=== PATIENT | female | born 1935 | race Caucasian/White ===

== ENCOUNTER 2017-01-06 20:11 | Inpatient (IN) | payer OTHER, BC ==
[2017-01-06 20:22] VITALS: BMI 34.4
[2017-01-06] MEDS ORDERED: ASPIRIN 81 MG CHEWABLE TABLETS PO ONE (20:54)
--- NOTE | 2017-01-06 20:54 | PDOC ---
History of Present Illness - General History Source: Patient Exam Limitations: No Limitations <Navid Lewis - Last Filed: 01/06/17 22:10> <Smiley Camilo - Last Filed: 01/06/17 22:34> - General Chief Complaint: Shortness of Breath Stated Complaint: CHEST PAIN Time Seen by Provider: 01/06/17 20:38 - History of Present Illness Initial Comments: 01/06/17 21:36 The patient is a 81 year old female presenting with her family, with a significant past medical history of aortic stenosis s/p aortic valve replacement , HTN and HLD, who presents to the emergency department with chest pain onset today and dyspnea on exertion for the past month but exacerbated today. She describes her chest pain as ranging from mild to moderate, without radiation or modifying factors. The patient was last in the ED in 2012 for chest pain and was admitted to Telemetry. She denies being on any blood thinners. The patient denies headache and dizziness. Denies fever, chills, nausea, vomit, diarrhea and constipation. Denies dysuria, frequency, urgency and hematuria. Allergies: None Past surgical history: Aortic valve replacement Social history: No alcohol, tobacco or drug use reported Nutrition Instructor - Dr. Choi (Navid Lewis) Past History <Navid Lewis - Last Filed: 01/06/17 22:10> - Past Medical History HTN: Yes Hypercholesterolemia: Yes - Immunization History Immunization Up to Date: No - Psycho/Social/Smoking Cessation Hx Anxiety: No Suicidal Ideation: No Smoking Status: No Smoking History: Never smoked Have you smoked in the past 12 months: No Number of Cigarettes Smoked Daily: 0 Hx Alcohol Use: No Drug/Substance Use Hx: No Substance Use Type: None Hx Substance Use Treatment: No <Smiley Camilo - Last Filed: 01/06/17 22:34> - Past Medical History Allergies/Adverse Reactions: Allergies Allergy/AdvReac Type Severity Reaction Status Date / Time No Known Allergies Allergy Verified 01/06/17 20:20 Home Medications: Ambulatory Orders Aspirin Coated [Ecotrin] 81 mg PO DAILY 12/07/12 Ramipril [Altace] 2.5 mg PO DAILY 12/07/12 Simvastatin [Zocor] 40 mg PO DAILY 12/07/12 Review of Systems - Review of Systems Able to Perform ROS?: Yes <Navid Lewis - Last Filed: 01/06/17 22:10> <Smiley Camilo - Last Filed: 01/06/17 22:34> - Review of Systems Comments:: 01/06/17 21:36 GENERAL/CONSTITUTIONAL: No fever or chills. No weakness. HEAD, EYES, EARS, NOSE AND THROAT: No change in vision. No ear pain or discharge. No sore throat. CARDIOVASCULAR: +Chest pain and shortness of breath on exertion. RESPIRATORY: No cough, wheezing, or hemoptysis. GASTROINTESTINAL: No nausea, vomiting, diarrhea or constipation. GENITOURINARY: No dysuria, frequency, or change in urination. MUSCULOSKELETAL: No joint or muscle swelling or pain. No neck or back pain. SKIN: No rash NEUROLOGIC: No headache, vertigo, loss of consciousness, or change in strength/ sensation. ENDOCRINE: No increased thirst. No abnormal weight change HEMATOLOGIC/LYMPHATIC: No anemia, easy bleeding, or history of blood clots. ALLERGIC/IMMUNOLOGIC: No hives or skin allergy. (Navid Lewis) *Physical Exam <Navid Lewis - Last Filed: 01/06/17 22:10> <Smiley Camilo - Last Filed: 01/06/17 22:34> - Vital Signs Last Vital Signs Temp Pulse Resp BP Pulse Ox 97.5 F L 82 16 134/44 99 01/06/17 20:20 01/06/17 20:20 01/06/17 20:20 01/06/17 20:20 01/06/17 21:18 - Physical Exam Comments: 01/06/17 21:36 GENERAL: Awake, alert, and fully oriented, in no acute distress HEAD: No signs of trauma, normocephalic, atraumatic EYES: PERRLA, EOMI, sclera anicteric, conjunctiva clear ENT: Auricles normal inspection, hearing grossly normal, nares patent, oropharynx clear without exudates. Moist mucosa NECK: Normal ROM, supple, no lymphadenopathy, JVD, or masses LUNGS: +Scant bibasilar rales. No distress, speaks full sentences. HEART: +Murmur. Regular rate and rhythm, normal S1 and S2, no rubs or gallops, peripheral pulses normal and equal bilaterally. ABDOMEN: Soft, nontender, normoactive bowel sounds. No guarding, no rebound. No masses EXTREMITIES: +Pedal edema lower extremity bilaterally. Normal inspection, Normal range of motion. No clubbing or cyanosis. NEUROLOGICAL: Cranial nerves II through XII grossly intact. Normal speech, no focal sensorimotor deficits SKIN: Warm, Dry, normal turgor, no rashes or lesions noted. (Navid Lewis) ED Treatment Course - LABORATORY CBC & Chemistry Diagram: 01/06/17 21:00 01/06/17 21:00 <Navid Lewis - Last Filed: 01/06/17 22:10> - LABORATORY CBC & Chemistry Diagram: 01/06/17 21:00 01/06/17 21:00 <Smiley Camilo - Last Filed: 01/06/17 22:34> - ADDITIONAL ORDERS Additional order review: Laboratory Results 01/06/17 01/06/17 01/06/17 21:00 21:00 21:00 INR D-Dimer 251 H Sodium 141 Potassium 5.1 Chloride 107 Carbon Dioxide 26 Anion Gap 8 BUN 36 H D Creatinine 1.9 H D Creat Clearance w eGFR 25.37 Random Glucose 97 Calcium 8.3 L Magnesium 2.1 Total Bilirubin 0.4 AST 13 L ALT 14 Alkaline Phosphatase 109 Creatine Kinase 75 Troponin I 0.05 B-Natriuretic Peptide 83327.39 H Total Protein 5.8 L Albumin 3.5 Triglycerides 149 D Cholesterol 113 D Total LDL Cholesterol 63 HDL Cholesterol 37 01/06/17 21:00 INR 1.13 D-Dimer Sodium Potassium Chloride Carbon Dioxide Anion Gap BUN Creatinine Creat Clearance w eGFR Random Glucose Calcium Magnesium Total Bilirubin AST ALT Alkaline Phosphatase Creatine Kinase Troponin I B-Natriuretic Peptide Total Protein Albumin Triglycerides Cholesterol Total LDL Cholesterol HDL Cholesterol 01/06/17 21:00 RBC 3.66 MCV 78.0 L MCHC 31.7 L RDW 17.5 H MPV 11.3 H D Neutrophils % 70.4 Lymphocytes % 17.1 D Monocytes % 7.8 Eosinophils % 3.9 Basophils % 0.8 - RADIOLOGY Radiology Studies Ordered: Category Date Time Status CHEST X-RAY PORTABLE* [RAD] Stat Radiology 01/06/17 20:55 Taken - Medications Given in the ED: ED Medications Discontinued Medications Generic Name Dose Route Start Last Admin Trade Name Freq PRN Reason Stop Dose Admin Aspirin 162 mg 01/06/17 20:54 01/06/17 21:16 Asa - PO 01/06/17 20:55 162 mg ONCE ONE Administration Medical Decision Making <Navid Lewis - Last Filed: 01/06/17 22:10> <Smiley Camilo - Last Filed: 01/06/17 22:34> - Medical Decision Making 01/06/17 22:10 Dr. Choi was called regarding the patient at 10pm. Dr. Buck covering Dr. Buck was consulted regarding the patient at 10:03pm [phone] (Navid Lewis) *DC/Admit/Observation/Transfer <Navid Lewis - Last Filed: 01/06/17 22:10> - Discharge Dispostion Admit: Yes <Smiley Camilo - Last Filed: 01/06/17 22:34> Diagnosis at time of Disposition: Chest pain Qualifiers: Chest pain type: precordial pain Qualified Code(s): R07.2 - Precordial pain Dyspnea Qualifiers: Dyspnea type: shortness of breath Qualified Code(s): R06.02 - Shortness of breath Edema leg Qualifiers: Laterality: bilateral Qualified Code(s): R60.0 - Localized edema Congestive heart disease Qualifiers: Congestive heart failure type: unspecified congestive heart failure type Congestive heart failure chronicity: acute Qualified Code(s): I50.9 - Heart failure, unspecified - Referrals Referrals: Ludwig Hammonds MD [Primary Care Provider] - - Attestations Scribe Attestion: 01/06/17 21:37 Documentation prepared by Navid Lewis, acting as medical biller/coder for Smiley Camilo MD (Navid Lewis)
[2017-01-06] MEDS ORDERED: ASPIRIN 81 MG CHEWABLE TABLETS ONE (21:06)
[2017-01-06 21:11] LABS: BASOPHIL 0.8 % (0-2.0); EOSINOPHIL 3.9 % (0-4.5); MCH 24.7 pg (25.7-33.7); MCHC 31.7 g/dl (32.0-36.0); MEAN PLT VOLUME 11.3 fl (7.5-11.1); NEUTROPHILS 70.4 % (42.8-82.8); PLATELET COUNT 202 K/MM3 (134-434); RDW 17.5 % (11.6-15.6); WHITE BLOOD COUNT 8.9 K/mm3 (4.0-10.0)
[2017-01-06 21:21] LABS: INR 1.13 (0.82-1.09); PROTHROMBIN TIME (PATIENT) 12.5 SEC (9.98-11.88)
[2017-01-06 21:40] LABS: ALBUMIN 3.5 g/dl (3.4-5.0); BILIRUBIN,TOTAL 0.4 mg/dL (0.2-1.0); CALCIUM 8.3 mg/dL (8.5-10.1); CREATININE 1.9 mg/dL (0.55-1.02); MAGNESIUM 2.1 mg/dL (1.8-2.4); TOT PROT 5.8 g/dl (6.4-8.2)
[2017-01-06 21:42] LABS: TROPONIN I 0.05 ng/ml (0.00-0.05)
--- NOTE | 2017-01-06 22:15 | PN ---
<Yazmin Lin - Last Filed: 01/06/17 23:24> Teaching Attending Note ATTENDING PHYSICIAN STATEMENT I saw and evaluated the patient. I reviewed the resident's note and discussed the case with the resident. I agree with the resident's findings and plan as documented. SUBJECTIVE: Patient is a 81 yo F with a PMHx of aortic stenosis s/p aortic valve replacement , HTN and HLD who presents with left-sided chest pain also with dyspnea on exertion which has been going on for 1 month duration but worsened today. Patient states the pain occurs everyday and worsens when she tries to lay flat. At 7pm this evening she had a sharp, pressure-like left-sided chest pain rated a 10/10 severity while using the bathroom that prompted her family to call EMS. Patient lives with her daughter. Patient reports she is not on any blood thinners. Patient also reports falling 1 month ago and hit her head, right arm and right leg but didnt not see a doctor at the time. Patient also reports bilateral arm tingling for one month. OBJECTIVE: Last Vital Signs Temp Pulse Resp BP Pulse Ox 97.5 F L 82 16 134/44 99 01/06/17 20:20 01/06/17 20:20 01/06/17 20:20 01/06/17 20:20 01/06/17 21:18 GENERAL: Awake, alert, and fully oriented, in no acute distress HEENT: Atraumatic. PERRLA, EOMI. Moist mucosa. No JVD LUNGS: No distress, speaks full sentences, decreased breath sounds at bases bilaterally. HEART: Regular rate and rhythm, normal S1 and S2, systolic ejection murmur, rubs or gallops, peripheral pulses normal and equal bilaterally. ABDOMEN: Soft, nontender, normoactive bowel sounds. No guarding, no rebound. No masses EXTREMITIES: Normal range of motion, trace edema in LE bilaterally. No clubbing or cyanosis. NEUROLOGICAL: Cranial nerves II through XII grossly intact. Normal speech, normal gait, no focal sensorimotor deficits SKIN: Warm, Dry, normal turgor, no rashes or lesions noted. CBCD WBC 8.9 K/mm3 (4.0-10.0) D 01/06/17 21:00 RBC 3.66 M/mm3 (3.60-5.2) 01/06/17 21:00 Hgb 9.1 GM/dL (10.7-15.3) L D 01/06/17 21:00 Hct 28.6 % (32.4-45.2) L 01/06/17 21:00 MCV 78.0 fl (80-96) L 01/06/17 21:00 MCHC 31.7 g/dl (32.0-36.0) L 01/06/17 21:00 RDW 17.5 % (11.6-15.6) H 01/06/17 21:00 Plt Count 202 K/MM3 (134-434) 01/06/17 21:00 MPV 11.3 fl (7.5-11.1) H D 01/06/17 21:00 CMP Sodium 141 mmol/L (136-145) 01/06/17 21:00 Potassium 5.1 mmol/L (3.5-5.1) 01/06/17 21:00 Chloride 107 mmol/L (98-107) 01/06/17 21:00 Carbon Dioxide 26 mmol/L (21-32) 01/06/17 21:00 Anion Gap 8 (8-16) 01/06/17 21:00 BUN 36 mg/dL (7-18) H D 01/06/17 21:00 Creatinine 1.9 mg/dL (0.55-1.02) H D 01/06/17 21:00 Creat Clearance w eGFR 25.37 (>60) 01/06/17 21:00 Calcium 8.3 mg/dL (8.5-10.1) L 01/06/17 21:00 Total Bilirubin 0.4 mg/dL (0.2-1.0) 01/06/17 21:00 AST 13 U/L (15-37) L 01/06/17 21:00 ALT 14 U/L (12-78) 01/06/17 21:00 Alkaline Phosphatase 109 U/L (45-117) 01/06/17 21:00 Total Protein 5.8 g/dl (6.4-8.2) L 01/06/17 21:00 Albumin 3.5 g/dl (3.4-5.0) 01/06/17 21:00 EXAM: X-RAY CHEST: No focal lung consolidation or pleural effusions. Cardiomegaly and/or pericardial effusion. Minimal pulmonary vascular congestion. Median sternotomy. Partial atelectasis lung bases. Prominent right hilar soft tissues. ASSESSMENT AND PLAN: Patient is a 81 yo F with a PMHx of aortic stenosis s/p aortic valve replacement , HTN and HLD who presents with chest pain and CHF exacerbation. 1.) CHF exacerbation -Echo complete -Trend troponins -Daily weights -Na+ restricted diet -Fluid restrict -Lasix IV -Cardiology consult 2.) Chest pain -Heart score: 4 -Trend troponins/ ECG -Continue aspirin 3.) HTN -Continue with home meds -Hold susanne inhibitor 4.) HLD -Check lipid panel -Continue home meds 5.) Microcytic anemia -Stool cult pending -Iron studies in AM 6.) Aortic valve replacement - Echo in AM 7.) Acute renal failure -Check urine electrolytes -Avoid nephrotoxins 8.) Diabetes -Hold metformin -Finger sticks Q 4 -Rapid acting insulin -Diabetic diet 9.) Bilateral arm tingling -Consider CT Spine without contrast DVT ppx -SCDs Documentation prepared by Yazmin Lin, acting as medical supply technician for Elisa Scott D.O. <Elisa Scott - Last Filed: 01/07/17 04:46> Teaching Attending Note Name of Resident: Emilia Lee Addendum: NSTEMI - Heparin gtt. - Cards consult - Plavix - 02 NC - Continue to trend trop
[2017-01-06] MEDS ORDERED: FUROSEMIDE 40 MG/4 ML INJECTABLE VIAL IVPUSH ONE (22:31)
[2017-01-06] MEDS ORDERED: FUROSEMIDE 40 MG/4 ML INJECTABLE VIAL ONE (23:12)
[2017-01-06] MEDS ORDERED: TAMSULOSIN HCL 0.4 MG CAP.ER.24H (FP) PO ONE (23:23)
--- NOTE | 2017-01-06 23:30 | HP ---
CHIEF COMPLAINT: Chest pain and shortness of breath PCP: Dr. Kristy Peña HISTORY OF PRESENT ILLNESS: Patient is 81-year-old female presented with the chief complaints chest pain and shortness of breath. A/c to the patient, she developed shortness of breath a month ago which has been getting worse, SOB at rest and exertion, can barely walk few steps without short of breath. Also states she has been having chest pain for the past 2 months almost every day especially at night, has to wait for 20mins until the chest pain goes away and can lie down. Uses one pillow and sleeps at an angle of 45 degrees. Today, at around 7pm, she developed severe left sided chest pain, non radiating, 10/10 in intensity, pressure type, aggravated on movement and taking deep inspiration, relieved on sitting, associated with palpitations but no nausea or vomiting. Patient mentions that one month ago, she had a mechanical fall, hit the back of her head, right upper and lower limb, however, she didn't visit the doctor. since the fall, there is no complaint of headache, dizziness or loc. Patient also reports that she had been having tingling sensation in both of her hand since 2 months. Hasn't seen a doctor for that matter. Denies fever, chills, rigors, sweating or abdominal pain. Bowel/Bladder habit normal. Increased frequency of urination after she started taking lasix but no other urinary symptoms. Sleep/Appetite normal. ER course was notable for: (1) Afebrile, D-dimer 251; BNP- 24194.39; creatinine 1.9, GFR 25.37 (2) CXR (3) Aspirin 162mg stat, Lasix 40mg IV Recent Travel: None PAST MEDICAL HISTORY: Hypertension, Hyperlipidemia, Aortic stenosis s/p Aortic valve placement in 2013 PAST SURGICAL HISTORY: As mentioned above Social History: Smoking: Denies Alcohol: Denies Drugs: Denies Family History: Allergies No Known Allergies Allergy (Verified 01/06/17 20:20) HOME MEDICATIONS: REVIEW OF SYSTEMS CONSTITUTIONAL: Absent: fever, chills, diaphoresis, generalized weakness, malaise, loss of appetite, weight change HEENT: Absent: rhinorrhea, nasal congestion, throat pain, throat swelling, difficulty swallowing, mouth swelling, ear pain, eye pain, visual changes CARDIOVASCULAR: Present: chest pain, palpitations Absent:irregular heart rate, lightheadedness, peripheral edema RESPIRATORY: Present: shortness of breath, dyspnea with exertion, orthopnea Absent: cough, wheezing, stridor, hemoptysis GASTROINTESTINAL: Absent: abdominal pain, abdominal distension, nausea, vomiting, diarrhea, constipation, melena, hematochezia GENITOURINARY: Absent: dysuria, frequency, urgency, hesitancy, hematuria, flank pain, genital pain MUSCULOSKELETAL: Absent: myalgia, arthralgia, joint swelling, back pain, neck pain SKIN: Absent: rash, itching, pallor HEMATOLOGIC/IMMUNOLOGIC: Absent: easy bleeding, easy bruising, lymphadenopathy, frequent infections ENDOCRINE: Absent: unexplained weight gain, unexplained weight loss, heat intolerance, cold intolerance NEUROLOGIC: Absent: headache, focal weakness or paresthesias, dizziness, unsteady gait, seizure, mental status changes, bladder or bowel incontinence PSYCHIATRIC: Absent: anxiety, depression, suicidal or homicidal ideation, hallucinations. PHYSICAL EXAMINATION Vital Signs - 24 hr 01/06/17 01/06/17 20:20 21:18 Temperature 97.5 F L Pulse Rate 82 Respiratory 16 Rate Blood Pressure 134/44 O2 Sat by Pulse 95 99 Oximetry (%) GENERAL: Elderly female, Awake, alert, and fully oriented, in no mild respiratory distress. HEAD: Normal with no signs of trauma. EYES:EOM intact, no pallor or icterus. EARS, NOSE, THROAT: Ears normal. Moist mucous membranes. NECK: Supple. LUNGS: Decreased Breath sounds bilaterally, bibasilar crackles. No wheezes. No accessory muscle use. HEART: Regular rate and rhythm, normal S1 and S2 , systolic murmur+ , rub or gallop. ABDOMEN: Soft, nontender, not distended, normoactive bowel sounds, no guarding, no rebound, no masses. No hepatomegaly or splenomegaly. MUSCULOSKELETAL: Normal range of motion at all joints. No bony deformities or tenderness. No CVA tenderness. UPPER EXTREMITIES: 2+ pulses, warm, well-perfused. No cyanosis. No clubbing. No peripheral edema. LOWER EXTREMITIES: 2+ pulses, warm, well-perfused. No calf tenderness. Trace peripheral edema. NEUROLOGICAL: Cranial nerves II-XII intact. Normal speech. Normal gait. PSYCHIATRIC: Cooperative. Good eye contact. Appropriate mood and affect. SKIN: Warm, dry, normal turgor, no rashes or lesions noted, normal capillary refill. Laboratory Results - last 24 hr 01/06/17 01/06/17 01/06/17 21:00 21:00 21:00 WBC 8.9 D RBC 3.66 Hgb 9.1 L D Hct 28.6 L MCV 78.0 L MCHC 31.7 L RDW 17.5 H Plt Count 202 MPV 11.3 H D Neutrophils % 70.4 Lymphocytes % 17.1 D Monocytes % 7.8 Eosinophils % 3.9 Basophils % 0.8 INR 1.13 D-Dimer Sodium 141 Potassium 5.1 Chloride 107 Carbon Dioxide 26 Anion Gap 8 BUN 36 H D Creatinine 1.9 H D Creat Clearance w eGFR 25.37 Random Glucose 97 Calcium 8.3 L Magnesium 2.1 Total Bilirubin 0.4 AST 13 L ALT 14 Alkaline Phosphatase 109 Creatine Kinase 75 Troponin I 0.05 B-Natriuretic Peptide Total Protein 5.8 L Albumin 3.5 Triglycerides Cholesterol Total LDL Cholesterol HDL Cholesterol Stool Occult Blood 01/06/17 01/06/17 01/06/17 21:00 21:00 22:35 WBC RBC Hgb Hct MCV MCHC RDW Plt Count MPV Neutrophils % Lymphocytes % Monocytes % Eosinophils % Basophils % INR D-Dimer 251 H Sodium Potassium Chloride Carbon Dioxide Anion Gap BUN Creatinine Creat Clearance w eGFR Random Glucose Calcium Magnesium Total Bilirubin AST ALT Alkaline Phosphatase Creatine Kinase Troponin I B-Natriuretic Peptide 76534.39 H Total Protein Albumin Triglycerides 149 D Cholesterol 113 D Total LDL Cholesterol 63 HDL Cholesterol 37 Stool Occult Blood Negative ASSESSMENT/PLAN: Patient is 81-year-old female with significant past medical history of Hypertension, Hyperlipidemia, Aortic stenosis s/p Aortic valve placement in 2012 presented with the chief complaints chest pain and shortness of breath. # CHF exacerbation Patient presented with worsening shortness of breath Afebrile, D-dimer 251; BNP- 81023.39; In the ED, patient received Lasix 40mg IV Admitted in Tele Echo ordered Cardiology consult placed Daily weight Strict Input/output Fluid restriction 1Litres # Chest pain with rise in Troponin- Likely NSTEMI Patient has been complaining of left sided chest pain since 2 months that got worse today Troponin -0.05----> 0.65------> ordered for 9:30am EKG: Right bundle branch block with T-wave inversions Continuous cardiac monitoring. Patient received Aspirin 162mg stat and will continue with 81 mg of Aspirin Clopidogrel 300 mg stat given Nasal oxygen # Aortic stenosis s/p aortic valve placement in 2013 Most likely its non mechanical as patient is not in any blood thinners. # Microcytic anemia Ordered Iron panel for tomorrow Watch for sudden drop in H/H Stool occult blood pending # Acute Kidney Injury with questionable CKD Could be cardiorenal Creatinine 1.9 (baseline 0.9 in 2013), GFR 25.37 Avoid Nephrotoxic drugs Nephrology consult placed # Hypertension Ramipril on hold due to TOBIAS Would consider adding Beta mariel. # Hyperlipidemia Increased Atorvastatin from 20mg to 80mg # No h/o Diabetes However, due to other co-morbidities ordered HbA1c # FEN Not on IV fluids Electrolytes to be repeated tomorrow Sodium controlled diet # Prophylaxis For DVT- On scds For GI- Not indicated # Code Status: Full Code # Dispo: Admitted in Tele. Duration of stay unknown Illness, Investigation and plan of care explained to the patient. She verbalized understanding. Case seen and discussed with Dr. Scott. Visit type - Emergency Visit Emergency Visit: Yes ED Registration Date: 01/06/17 Care time: The patient presented to the Emergency Department on the above date and was hospitalized for further evaluation of their emergent condition. - New Patient This patient is new to me today: Yes Date on this admission: 01/06/17 - Critical Care Critical Care patient: No
[2017-01-06] MEDS ORDERED: ATORVASTATIN CA 20 MG TABLET (FP) PO SCH (23:45)
[2017-01-07] MEDS ORDERED: ATORVASTATIN CA 40 MG TABLET (FP) ONE (00:03)
[2017-01-07 00:28] LABS: URINE APPEARANCE CLEAR; URINE BILIRUBIN NEGATIVE (NEGATIVE); URINE BLOOD NEGATIVE (NEGATIVE); URINE COLOR STRAW; URINE GLUCOSE (UA) NEGATIVE (NEGATIVE); URINE KETONE NEGATIVE (NEGATIVE); URINE LEUK ESTERASE NEGATIVE (NEGATIVE); URINE NITRITE NEGATIVE (NEGATIVE); URINE PROTEIN NEGATIVE (NEGATIVE); URINE UROBILINOGEN NEGATIVE E.U./dl (0.2-1.0)
[2017-01-07 04:31] LABS: TROPONIN I 0.64 ng/ml (0.00-0.05)
[2017-01-07] MEDS ORDERED: HEPARIN NA (PORCINE) 5,000 UNITS/ML 1ML VIAL IVPUSH PRN ×2 (04:43)
[2017-01-07] MEDS ORDERED: SODIUM CHLORIDE 1,000 ML IV SCH (04:45)
[2017-01-07] MEDS ORDERED: CLOPIDOGREL BISULFATE 300 MG TABLET PO ONE (04:46)
[2017-01-07] MEDS ORDERED: CLOPIDOGREL BISULFATE 300 MG TABLET ONE (04:57)
[2017-01-07] MEDS ORDERED: HEPARIN NA (PORCINE) 5,000 UNITS/ML 1ML VIAL ONE (04:58)
[2017-01-07] MEDS ORDERED: HEPARIN INFUSION - 500 ML IVPB ONE (04:58)
[2017-01-07] MEDS ORDERED: ATORVASTATIN CA 20 MG TABLET (FP) PO SCH (05:08)
[2017-01-07] MEDS: HEPARIN - 25,000 UNIT in SODIUM CHLORIDE 495 ML IV SCH (05:11)
[2017-01-07] MEDS ORDERED: INSULIN SLIDING SCALE (NOVOLOG) 1 VIAL SQ SCH (07:00)
[2017-01-07 07:09] LABS: BASOPHIL 0.8 % (0-2.0); EOSINOPHIL 4.7 % (0-4.5); MCH 24.9 pg (25.7-33.7); MCHC 32.2 g/dl (32.0-36.0); MEAN CELL VOLUME 77.2 fl (80-96); MEAN PLT VOLUME 11.6 fl (7.5-11.1); NEUTROPHILS 62.1 % (42.8-82.8); PLATELET COUNT 189 K/MM3 (134-434); RDW 16.7 % (11.6-15.6); WHITE BLOOD COUNT 7.8 K/mm3 (4.0-10.0)
[2017-01-07] MEDS ORDERED: TAMSULOSIN HCL 0.4 MG CAP.ER.24H (FP) PO SCH (08:30)
--- NOTE | 2017-01-07 09:25 | CON.CARD ---
Consult Consult Specialty:: cardio Referred by:: hospitalist Reason for Consultation:: sob/cp, chf, NSTEMI - History of Present Illness Chief Complaint: sob/cp History of Present Illness: 81-year-old female here with cp and sob. has had worsening sob for several months--chronic. notices it when walking, not while in bed. saw hallie in our office 09/05 with c/o chronic GARCIA that improved when she resumed PO lasix at that time but had not resolved. wt was 187 lbs then *PT NEVER PICKED UP LASIX AND HAS NOT TAKEN ANY SINCE THEN SHE SAYS doesn't know wt, doesn't monitor at home has not seen casper since 09/05 sob worse the past several weeks; mild wax/waning feet swelling stable at her baseline having episodes of CP frequently nestor at night when walking back from bathroom to bed; again yesterday--signif worse when breathing in. yest episode more severe than ever before but she thinks qualitatively similar. resolved on its own after 45min or so (shortly after arrived in ER) no radiation to back, not positional Patient mentions that one month ago, she had a mechanical fall, hit the back of her head, right upper and lower limb, however, she didn't visit the doctor. since the fall, there is no complaint of headache, dizziness or loc. PMH: bioAVR chronic diast chf HTN HPL - Alcohol/Substance Use Hx Alcohol Use: No - Smoking History Smoking history: Never smoked Have you smoked in the past 12 months: No Aproximately how many cigarettes per day: 0 Home Medications - Allergies Allergies/Adverse Reactions: Allergies Allergy/AdvReac Type Severity Reaction Status Date / Time No Known Allergies Allergy Verified 01/06/17 20:20 - Home Medications Home Medications: Ambulatory Orders Aspirin [Ecotrin] 81 mg PO DAILY 01/06/17 Furosemide [Lasix] 40 mg PO DAILY 01/06/17 Meloxicam [Mobic] 15 mg PO DAILY 01/06/17 Metformin HCl [Metformin HCl ER] 500 mg PO DAILY 01/06/17 Ramipril 5 mg PO DAILY 01/06/17 Simvastatin [Zocor -] 40 mg PO DAILY 01/06/17 Tamsulosin HCl [Flomax] 0.4 mg PO DAILY 01/06/17 Review of Systems - Review of Systems Constitutional: denies: Chills, Fever Eyes: denies: Eye Pain HENT: denies: Nasal Congestion Neck: denies: Stiffness Cardiovascular: denies: Palpitations Respiratory: denies: Orthopnea, PND Gastrointestinal: denies: Diarrhea, Rectal Bleeding Genitourinary: denies: Burning, Hematuria Musculoskeletal: denies: Muscle Pain Integumentary: denies: Rash Neurological: denies: Numbness, Seizure, Syncope Endocrine: denies: Excessive Sweating Hematology/Lymphatic: denies: Excessive Bleeding Vital Signs: Vital Signs Temperature 97.5 F L 01/06/17 20:20 Pulse Rate 62 01/07/17 07:10 Respiratory Rate 19 01/07/17 07:10 Blood Pressure 113/43 01/07/17 07:10 O2 Sat by Pulse Oximetry (%) 99 01/07/17 07:10 Constitutional: Yes: Well Nourished, No Distress Eyes: No: Sclera Icterus HENT: No: Nasal Congestion Neck: No: Decreased ROM Respiratory: Yes: CTA Bilaterally. No: Accessory Muscle Use, Rales, Wheezes Gastrointestinal: Yes: Normal Bowel Sounds. No: Distention, Hepatomegaly, Palpable Mass, Tenderness Cardiovascular: Yes: Regular Rate and Rhythm JVD: Yes Carotid Bruit: No PMI: Non-Displaced Heart Sounds: Yes: S1, S2. No: Gallop Murmur: Yes: Systolic Murmur (3/6 early THOMAS rusb). No: Diastolic Murmur Musculoskeletal: Yes: Other (No kyphosis) Extremities: No: Cold, Cyanosis Edema: No Peripheral Pulses: 2+ Left Carotid, 2+ Right Carotid, 2+ Left Doralis Pedis, 2+ Right Dorsalis Pedis Integumentary: No: Jaundice Neurological: Yes: Alert, Oriented (x3) Psychiatric: No: Agitated - Other Data Labs, Other Data: CBC, BMP 01/07/17 05:52 INR, PTT INR 1.13 (0.82-1.09) 01/06/17 21:00 Troponin, BNP 01/07/17 03:25 Troponin I 0.64 H* Troponin, BNP 01/07/17 03:25 Troponin I 0.64 H* Laboratory Tests 01/06/17 01/06/17 01/07/17 21:00 21:00 03:25 WBC Hgb Plt Count Sodium 141 Potassium 5.1 Carbon Dioxide 26 BUN 36 H D Creatinine 1.9 H D AST 13 L ALT 14 Troponin I 0.05 0.64 H* B-Natriuretic Peptide 84279.39 H Triglycerides 149 D Total LDL Cholesterol 63 HDL Cholesterol 37 01/07/17 05:52 WBC 7.8 Hgb 8.8 L Plt Count 189 Sodium Potassium Carbon Dioxide BUN Creatinine AST ALT Troponin I B-Natriuretic Peptide Triglycerides Total LDL Cholesterol HDL Cholesterol ekg in ER: NSR, RBBB; diffuse ST-T abnormalities unchanged vs 12/27/16 office (no path q's) Imaging - Results Chest X-ray: Report Reviewed, Image Reviewed Assessment/Plan Echo 2012: nl LV/EF; nl RV size; nl LA; severe ; mild MR/TR; RVSP 54; small peric eff Echo 12/2015 (office): nl LVEF; mild-mod LVH; nl RV; nl fxn bioAVR; mild MR MPI 2014: no STs; no ischemia; nl EF LHC 2012: non-obs CAD sob, acute diast CHF -known h/o diast CHF, GARCIA sx's exacerbated pt lasix non-adherence in past; -09/05 empiric trial of incr lasix (40 qd to bid) rx'd by hallie in office--no f/u with him since -CXR here (my review) shows small bilat effusons likely, with diffuse marked interstitial pattern new vs 11/06 (no vasc redistribution appreciated)--suspect acute CHF -BNP 12K not terribly helpful in setting of low GFR/TOBIAS -hx suggestive of gradually decompensated chronic HFpEF sec to med noncompliance , probable JVD on exam -s/p lasix 40 IVP in ER overnight 01/06 -f/u today's rpt creatinine--if stable, will plan to continue lasix -rpt echo atypical CP: -trop 0.05-->0.64-->0.74 -ECG with no ischemic changes (marked ST-Ts at baseline 12/27 in office) -rpt ECG now, trend enzymes -suspect enzymes sec to acute chf and cp m-skel but cannot be certain by history --will plan persantine nuclear stress test while here -f/u rpt echo done for LVEF/RWMAs -pre-AVR cath 2012 with nonobs CAD -*per dr sterling notes, known h/o atypical CP with m-skel features with neg nuclear stress test 2014 for these sx's; -cont home ASA, bb, statin - cont UFH for now pending serial enzymes trend and echo/ecg -given plavix 300mg load in ER--will hold for now given also on ASA and UFH with hgb 8s-9s, down from 2013 with no recent values to probate lawyer baseline -close H/H f/u on ASA/UFH -sx description and BPs trend not suggestive of acute aorta pathology TOBIAS: -creat 0;9 in 2013, ? more recent baseline labs (does pt f/u with any office MDs ?) -monitor lab trend s/p lasix yesterday -? renal c/s--per hospitalist h/o bio AV replacement (for ): HTN: -bp controlled -hold home GLENN given TOBIAS here, cont metopr -observe BP trend HPL: -cont home statin DM2: -on orals at home -per hospitalist anemia: -? acute, no recent baseline -stool guaiac ordered, iron studies -trend daily while on AC (home med regimen: ASA 81, metopr 25 bid, simva 40, lasix 40 qd-bid, ramipril 5 , metformin)
--- NOTE | 2017-01-07 10:28 | MSN ---
[id number]. Pt has no complaints this morning. States that her CP has resolved and her breathing has improved. Denies fevers, chills, palpitations, nausea, vomiting, diaphoresis, abdominal pain, or dysuria. Active Medications Generic Name Dose Route Start Last Admin Trade Name Freq PRN Reason Stop Dose Admin Aspirin 81 mg 01/07/17 10:00 01/07/17 11:06 Ecotrin - PO 81 mg DAILY REGINO Administration Atorvastatin Calcium 80 mg 01/07/17 22:00 Lipitor - PO HS REGINO Heparin Sodium (Porcine) 1,000 unit 01/07/17 04:43 Heparin - IVPUSH PRN PRN Heparin Heparin Sodium (Porcine) 5,000 unit 01/07/17 04:43 01/07/17 05:11 Heparin - IVPUSH 5,000 unit PRN PRN Administration Heparin Heparin Sodium (Porcine) 25, 500 mls @ 20 mls/hr 01/07/17 04:45 01/07/17 12:31 000 unit/ Sodium Chloride IV 950 unit/hr TITR REGINO Titration Protocol 1,000 UNIT/HR Metoprolol Succinate 25 mg 01/07/17 10:00 01/07/17 11:06 Toprol Xl - PO 25 mg BID REGINO Administration OBJECTIVE: Vital Signs Period Temp Pulse Resp BP Sys/Tinsley Pulse Ox Last 24 Hr 97.5 F-98.1 F 61-82 16-20 109-134/38-61 95-99 GENERAL: Well nourished, well developed female, AAOx3 in NAD on NC HEAD: Normocephalic, atraumatic, PERRLA, EOMI NECK: No JVD HEART: RRR with +S1/S2, holosystolic ejection murmur hear @ R>L upper sternal border, no gallops/rubs LUNGS: Bibasilar crackles, negative rhonchi/wheezing ABDOMEN: Obese, soft, nondistended, non tender to palpation, dullness to percussion, normal bowel sounds diffusely EXT: Warm to touch, no signs of venous stasis, +2 DP palpated BL, trace edema BL LE NEURO: Normal speech, CN2-12 intact, motor and sensation grossly intact CBC 01/07/17 05:52 CMP Sodium 142 mmol/L (136-145) 01/07/17 05:52 Potassium 5.0 mmol/L (3.5-5.1) 01/07/17 05:52 Chloride 106 mmol/L (98-107) 01/07/17 05:52 Carbon Dioxide 22 mmol/L (21-32) 01/07/17 05:52 Anion Gap 14 (8-16) 01/07/17 05:52 BUN 35 mg/dL (7-18) H 01/07/17 05:52 Creatinine 1.9 mg/dL (0.55-1.02) H 01/07/17 05:52 Creat Clearance w eGFR 25.37 (>60) 01/07/17 05:52 Random Glucose 101 mg/dL (74-106) 01/07/17 05:52 Hemoglobin A1c % 5.0 % (4.8-6.0) 01/07/17 05:52 Calcium 8.7 mg/dL (8.5-10.1) 01/07/17 05:52 Phosphorus 4.6 mg/dL (2.5-4.9) 01/07/17 05:52 Magnesium 2.4 mg/dL (1.8-2.4) 01/07/17 05:52 Ferritin 13.026 ng/ml (6.9-282.5) 01/07/17 05:52 Total Bilirubin 0.4 mg/dL (0.2-1.0) 01/07/17 05:52 AST 19 U/L (15-37) D 01/07/17 05:52 ALT 12 U/L (12-78) 01/07/17 05:52 Alkaline Phosphatase 107 U/L (45-117) 01/07/17 05:52 Creatine Kinase 137 IU/L (26-192) 01/07/17 09:55 Troponin I 0.74 ng/ml (0.00-0.05) H* 01/07/17 09:55 B-Natriuretic Peptide 58217.39 pg/ml (5-450) H 01/06/17 21:00 Total Protein 5.7 g/dl (6.4-8.2) L 01/07/17 05:52 Albumin 3.6 g/dl (3.4-5.0) 01/07/17 05:52 Triglycerides 74 mg/dL (35-160) D 01/07/17 05:52 Cholesterol 111 mg/dL (50-200) 01/07/17 05:52 Total LDL Cholesterol 66 mg/dL (5-100) 01/07/17 05:52 HDL Cholesterol 38 mg/dL (40-60) L D 01/07/17 05:52 CXR (01/06/17): Cardiomegaly, prominent R hilum, BL pleural effusions, increased interstitial markings when compared to 11/06 CXR CXR (01/07/17): "Resolved vascular congestion". Persistence of BL pleural effusions A/P: Pt is a 81 yo F with a PMHx of HTN, HLD, diastolic CHF, and bioAVR (2012) who presents to the ED with chronic, worsening dyspnea on exertion and an acute increase in L sided CP. Pt was admitted to telemetry for NSTEMI with acute diastolic CHF exacerbation. 1. NSTEMI -Cardiology consult appreciated -Troponin I: 0.05 -> 0.64 -> 0.74 -EKG: pt has baseline ST-Ts changes per outpatient cardio records -Given ASA 162mg, Clopidogrel 300mg, and Atorvastatin 40mg in ER -Heparin gtt started. Monitor aPTT and CBC closely -ECHO pending -? Nuclear stress test during admission -Continuos cardiac monitoring 2. Acute diastolic CHF exacerbation -CXR: BL pleural effusions -BNP of 13,000 ? in setting of decreased GFR and TOBIAS -Given Lasix 40mg IV once in ER -ECHO pending -Continue Lasix pending AM BUN/Cr -Daily weights -Monitor I/Os -Fluid restricted diet 3. TOBIAS -? Baseline of 0.8-0.9 (2012) -Renal consult pending -? 2/2 cardiorenal -Monitor BUN/Cr 4. Microcytic anemia -Stable w/ no signs of active bleeding -Stool guaiac negative -Iron studies pending -Type and screen pending -Monitor CBC 5. HTN -Stable -Hold Ramipril 2/2 TOBIAS -Metoprolol 25mg PO BID 6. HLD -Stable -Lipitor 80mg PO HS daily 7. Bioprosthetic aortic valve -S/P AV replacement in 2012 8. FEN -No IVF -Electrolytes WNL. BMP in AM -Sodium controlled diet. Fluid restricted diet to 1L/day 9. DVT ppx -Heparin gtt 10. Dispo -Admitted to telemetry for further monitoring and management Ludwig Sanchez, MS3 Problem List - Problems (1) Chest pain (2) Congestive heart disease (3) Dyspnea
[2017-01-07 10:39] LABS: INR 1.14 (0.82-1.09); PROTHROMBIN TIME (PATIENT) 12.6 SEC (9.98-11.88)
[2017-01-07 10:50] LABS: TROPONIN I 0.74 ng/ml (0.00-0.05)
[2017-01-07] MEDS: METOPROLOL SUCCINATE 25 MG TAB.SR.24H (FP) PO SCH ×2 (11:06→21:19)
[2017-01-07] MEDS: ASPIRIN COATED 81 MG TABLET.EC PO SCH (11:06)
[2017-01-07 13:11] LABS: ALBUMIN 3.6 g/dl (3.4-5.0); BILIRUBIN,TOTAL 0.4 mg/dL (0.2-1.0); CALCIUM 8.7 mg/dL (8.5-10.1); CREATININE 1.9 mg/dL (0.55-1.02); TOT PROT 5.7 g/dl (6.4-8.2)
[2017-01-07 14:02] LABS: MAGNESIUM 2.4 mg/dL (1.8-2.4); PHOSPHOROUS 4.6 mg/dL (2.5-4.9)
--- NOTE | 2017-01-07 14:50 | PN ---
Teaching Attending Note Name of Resident: Darrell Guillermo ATTENDING PHYSICIAN STATEMENT I saw and evaluated the patient. I reviewed the resident's note and discussed the case with the resident. I agree with the resident's findings and plan as documented. Patient is feeling better now, denies any chest pain no shortness of breath. Vital Signs Temperature 97.5 F L 01/06/17 20:20 Pulse Rate 61 01/07/17 13:37 Respiratory Rate 16 01/07/17 13:37 Blood Pressure 110/45 01/07/17 13:37 O2 Sat by Pulse Oximetry (%) 99 01/07/17 13:37 CBCD WBC 7.8 K/mm3 (4.0-10.0) 01/07/17 05:52 RBC 3.53 M/mm3 (3.60-5.2) L 01/07/17 05:52 Hgb 8.8 GM/dL (10.7-15.3) L 01/07/17 05:52 Hct 27.2 % (32.4-45.2) L 01/07/17 05:52 MCV 77.2 fl (80-96) L 01/07/17 05:52 MCHC 32.2 g/dl (32.0-36.0) 01/07/17 05:52 RDW 16.7 % (11.6-15.6) H 01/07/17 05:52 Plt Count 189 K/MM3 (134-434) 01/07/17 05:52 MPV 11.6 fl (7.5-11.1) H 01/07/17 05:52 CMP Sodium 142 mmol/L (136-145) 01/07/17 05:52 Potassium 5.0 mmol/L (3.5-5.1) 01/07/17 05:52 Chloride 106 mmol/L (98-107) 01/07/17 05:52 Carbon Dioxide 22 mmol/L (21-32) 01/07/17 05:52 Anion Gap 14 (8-16) 01/07/17 05:52 BUN 35 mg/dL (7-18) H 01/07/17 05:52 Creatinine 1.9 mg/dL (0.55-1.02) H 01/07/17 05:52 Creat Clearance w eGFR 25.37 (>60) 01/07/17 05:52 Random Glucose 101 mg/dL (74-106) 01/07/17 05:52 Calcium 8.7 mg/dL (8.5-10.1) 01/07/17 05:52 Total Bilirubin 0.4 mg/dL (0.2-1.0) 01/07/17 05:52 AST 19 U/L (15-37) D 01/07/17 05:52 ALT 12 U/L (12-78) 01/07/17 05:52 Alkaline Phosphatase 107 U/L (45-117) 01/07/17 05:52 Total Protein 5.7 g/dl (6.4-8.2) L 01/07/17 05:52 Albumin 3.6 g/dl (3.4-5.0) 01/07/17 05:52 CARDIAC ENZYMES Creatine Kinase 137 IU/L (26-192) 01/07/17 09:55 Troponin I 0.74 ng/ml (0.00-0.05) H* 01/07/17 09:55 Current Medications Generic Name Dose Route Start Last Admin Trade Name Freq PRN Reason Stop Dose Admin Aspirin 81 mg 01/07/17 10:00 01/07/17 11:06 Ecotrin - PO 81 mg DAILY [facility] Administration Atorvastatin Calcium 80 mg 01/07/17 22:00 Lipitor - PO HS REGINO Heparin Sodium (Porcine) 1,000 unit 01/07/17 04:43 Heparin - IVPUSH PRN PRN Heparin Heparin Sodium (Porcine) 5,000 unit 01/07/17 04:43 01/07/17 05:11 Heparin - IVPUSH 5,000 unit PRN PRN Administration Heparin Heparin Sodium (Porcine) 25, 500 mls @ 20 mls/hr 01/07/17 04:45 01/07/17 12:31 000 unit/ Sodium Chloride IV 950 unit/hr TITR REGINO Titration Protocol 1,000 UNIT/HR Metoprolol Succinate 25 mg 01/07/17 10:00 01/07/17 11:06 Toprol Xl - PO 25 mg BID REGINO Administration Home Medications Medication Instructions Recorded Aspirin [Ecotrin] 81 mg PO DAILY 01/06/17 Furosemide [Lasix] 40 mg PO DAILY 01/06/17 Meloxicam [Mobic] 15 mg PO DAILY 01/06/17 Metformin HCl [Metformin HCl ER] 500 mg PO DAILY 01/06/17 Ramipril 5 mg PO DAILY 01/06/17 Simvastatin [Zocor -] 40 mg PO DAILY 01/06/17 Tamsulosin HCl [Flomax] 0.4 mg PO DAILY 01/06/17 Echo 2012: nl LV/EF; nl RV size; nl LA; severe ; mild MR/TR; RVSP 54; small peric eff Echo 12/2015 (office): nl LVEF; mild-mod LVH; nl RV; nl fxn bioAVR; mild MR ASSESSMENT AND PLAN: Patient is a 81F with a significant cardiac history presented to the ED with chest pain and shortness of breath found to have an NSTEMI #Acute exacerbation of CHF with NSTEMI with elevated troponins: cardiology consult appreciated, ; monitor on telemetry On Heparin gtt per protocol , on aspirin ,statin ,on BB, troponins 0.05-->0.64- ->0.74 persantine stress test per cardiology in am. # Acute on chronic diastolic CHF exacerbation; f/u Echo; Daily I's and O's , daily weights ;Restrict fluid to 1 liter # Acute renal failure possible cardiorenal syndrome ; nephrology consult appreciated #Microcytic anemia: Pending Iron studies ;stool for OB is negative # HTN: hold GLENN-I/ARBs due to renal injury continue Toprol XL 25mg po BID #T2DM hold metformin ; HbA1C is 5.0 at this time; SS with coverage # HLD:continue statin DVT Px:Hep gtt/SCDs
--- NOTE | 2017-01-07 16:33 | PN ---
Physical Exam: SUBJECTIVE: Patient seen and examined at bedside in the ED. No issues overnight states her chest pain has resolved shortness of breath improved able to lay more flat with less dyspnea OBJECTIVE: Vital Signs Period Temp Pulse Resp BP Sys/Tinsley Pulse Ox Last 24 Hr 98.1 F 61-63 16-20 109-114/38-61 99-99 GENERAL: The patient is awake, alert, in no acute distress. EYES: PERRL ENT:moist mucous membranes. NECK: Trachea midline supple. LUNGS: Breath sounds equal, clear to auscultation bilaterally HEART: Regular rate and rhythm, S1, S2 loud systolic murmur heard at both sternal borders but mostly at the right upper sternal border there is JVD ABDOMEN: Soft, nontender, nondistended, normoactive bowel sounds EXTREMITIES: no edema. NEUROLOGICAL: Cranial nerves II through XII grossly intact. Normal speech, gait not observed. Laboratory Results - last 24 hr 01/06/17 01/07/17 01/07/17 22:35 00:00 03:25 WBC RBC Hgb Hct MCV MCHC RDW Plt Count MPV Neutrophils % Lymphocytes % Monocytes % Eosinophils % Basophils % INR PTT (Actin FS) Sodium Potassium Chloride Carbon Dioxide Anion Gap BUN Creatinine Creat Clearance w eGFR Random Glucose Hemoglobin A1c % Calcium Phosphorus Magnesium Ferritin Total Bilirubin AST ALT Alkaline Phosphatase Creatine Kinase 110 Troponin I 0.64 H* Total Protein Albumin Triglycerides Cholesterol Total LDL Cholesterol HDL Cholesterol Urine Color Straw Urine Appearance Clear Urine pH 5.0 Ur Specific [place] 1.006 Urine Protein Negative Urine Glucose (UA) Negative Urine Ketones Negative Urine Blood Negative Urine Nitrite Negative Urine Bilirubin Negative Urine Urobilinogen Negative Ur Leukocyte Esterase Negative Stool Occult Blood Negative 01/07/17 01/07/17 01/07/17 05:52 05:52 05:52 WBC 7.8 RBC 3.53 L Hgb 8.8 L Hct 27.2 L MCV 77.2 L MCHC 32.2 RDW 16.7 H Plt Count 189 MPV 11.6 H Neutrophils % 62.1 Lymphocytes % 23.2 D Monocytes % 9.2 Eosinophils % 4.7 H Basophils % 0.8 INR PTT (Actin FS) Sodium 142 Potassium 5.0 Chloride 106 Carbon Dioxide 22 Anion Gap 14 BUN 35 H Creatinine 1.9 H Creat Clearance w eGFR 25.37 Random Glucose 101 Hemoglobin A1c % 5.0 Calcium 8.7 Phosphorus 4.6 Magnesium 2.4 Ferritin Total Bilirubin 0.4 AST 19 D ALT 12 Alkaline Phosphatase 107 Creatine Kinase Troponin I Total Protein 5.7 L Albumin 3.6 Triglycerides 74 D Cholesterol 111 Total LDL Cholesterol 66 HDL Cholesterol 38 L D Urine Color Urine Appearance Urine pH Ur Specific [place] Urine Protein Urine Glucose (UA) Urine Ketones Urine Blood Urine Nitrite Urine Bilirubin Urine Urobilinogen Ur Leukocyte Esterase Stool Occult Blood 01/07/17 01/07/17 01/07/17 05:52 09:55 09:55 WBC RBC Hgb Hct MCV MCHC RDW Plt Count MPV Neutrophils % Lymphocytes % Monocytes % Eosinophils % Basophils % INR PTT (Actin FS) 80.5 H Sodium Potassium Chloride Carbon Dioxide Anion Gap BUN Creatinine Creat Clearance w eGFR Random Glucose Hemoglobin A1c % Calcium Phosphorus Magnesium Ferritin 13.026 Total Bilirubin AST ALT Alkaline Phosphatase Creatine Kinase 137 Troponin I 0.74 H* Total Protein Albumin Triglycerides Cholesterol Total LDL Cholesterol HDL Cholesterol Urine Color Urine Appearance Urine pH Ur Specific [place] Urine Protein Urine Glucose (UA) Urine Ketones Urine Blood Urine Nitrite Urine Bilirubin Urine Urobilinogen Ur Leukocyte Esterase Stool Occult Blood 01/07/17 01/07/17 09:55 10:00 WBC RBC Hgb Hct MCV MCHC RDW Plt Count MPV Neutrophils % Lymphocytes % Monocytes % Eosinophils % Basophils % INR 1.14 PTT (Actin FS) Sodium Potassium Chloride Carbon Dioxide Anion Gap BUN Creatinine Creat Clearance w eGFR Random Glucose Hemoglobin A1c % Calcium Phosphorus Magnesium Ferritin Total Bilirubin AST ALT Alkaline Phosphatase Creatine Kinase Cancelled Troponin I Cancelled Total Protein Albumin Triglycerides Cholesterol Total LDL Cholesterol HDL Cholesterol Urine Color Urine Appearance Urine pH Ur Specific [place] Urine Protein Urine Glucose (UA) Urine Ketones Urine Blood Urine Nitrite Urine Bilirubin Urine Urobilinogen Ur Leukocyte Esterase Stool Occult Blood Active Medications Generic Name Dose Route Start Last Admin Trade Name Freq PRN Reason Stop Dose Admin Aspirin 81 mg 01/07/17 10:00 01/07/17 11:06 Ecotrin - PO 81 mg DAILY REGINO Administration Atorvastatin Calcium 80 mg 01/07/17 22:00 Lipitor - PO HS REGINO Heparin Sodium (Porcine) 1,000 unit 01/07/17 04:43 Heparin - IVPUSH PRN PRN Heparin Heparin Sodium (Porcine) 5,000 unit 01/07/17 04:43 01/07/17 05:11 Heparin - IVPUSH 5,000 unit PRN PRN Administration Heparin Heparin Sodium (Porcine) 25, 500 mls @ 20 mls/hr 01/07/17 04:45 01/07/17 12:31 000 unit/ Sodium Chloride IV 950 unit/hr TITR REGINO Titration Protocol 1,000 UNIT/HR Metoprolol Succinate 25 mg 01/07/17 10:00 01/07/17 11:06 Toprol Xl - PO 25 mg BID REGINO Administration ASSESSMENT/PLAN: 81F with a significant cardiac history presented to the ED with chest pain and shortness of breath found to have an NSTEMI atypical chest pain/NSTEMI:cardiology consult appreciated. possible troponinemia in the setting of circulatory overload from CHF as patient never picked up her diuretics monitor on telemetry continue hep gtt per protocol continue aspirin continue statin continue beta mariel (metoprolol) continue to trend troponin to document peak trop 0.05-->0.64-->0.74 persantine stress test per cardiology following is from cardiology office per cardiologists note: Echo 2012: nl LV/EF; nl RV size; nl LA; severe ; mild MR/TR; RVSP 54; small peric eff Echo 12/2015 (office): nl LVEF; mild-mod LVH; nl RV; nl fxn bioAVR; mild MR MPI 2014: no STs; no ischemia; nl EF LHC 2012: non-obs CAD HbA1C is 5.0 which is normal Acute on chronic diastolic CHF exacerbation/heart failure with preserved ejection fraction most likely the cause of her dyspnea on exertion, SOB, and orthopnea patient did not cone picker lasix from the pharmacy f/u Echo daily weights strict I/Os 1 liter fluid restriction TOBIAS:likely pre-renal from poor perfusion to the kidney from CHF. possible cardiorenal syndrome avoid nephrotoxic drugs renally dose all medications nephrology consulted for further assistance should resolve with treatment of CHF exacerbation Microcytic anemia: Iron studies sent results pending results to determine further management stool for occult blood negative HTN: hold GLENN-I/ARBs due to renal injury continue Toprol XL 25mg po BID DM type 2: patient supposedly on metformin at home HbA1C is 5.0 at this time will do finger sticks for blood glucose monitoring TIDAC without sliding scale to trend her blood glucose for now HLD: continue statin FEN: No IVF patient is fluid overloaded no eledctrolyte issues at this time will continue to trend them low fat low sodium diet PPx: Hep gtt/SCDs No GI PPx indiacted as no major or minor criteria met Patient is ambulating no PT consult at this time will evaluate the need for physical therapy on a daily basis Visit type - Emergency Visit Emergency Visit: Yes ED Registration Date: 01/06/17 Care time: The patient presented to the Emergency Department on the above date and was hospitalized for further evaluation of their emergent condition. - New Patient This patient is new to me today: Yes Date on this admission: 01/07/17 - Critical Care Critical Care patient: No
--- NOTE | 2017-01-07 17:24 | CONSULT ---
Consult Consult Specialty:: Nephrology Reason for Consultation:: TOBIAS - History of Present Illness Chief Complaint: chest pain History of Present Illness: Pt is an 81 year old female with pmhx of aortic valve replacement, HTN and hyperlipidemia who presents to the ER with chest pain. She also complains of shortness of breath on exertion. She was found to be in heart failure and was admitted. She was also found to have elevated troponin. I was called to evalaute her for TOBIAS as her creatinine is elevated. She denies history of CKD. She denies hematuria or dysuria. She denies nsaid use. - History Source History Provided By: Patient, Medical Record - Past Medical History Cardio/Vascular: Yes: Aortic Stenosis, CHF, HTN, Hyperlipdemia ...: No Endocrine: Yes: Diabetes Mellitus - Alcohol/Substance Use Hx Alcohol Use: No - Smoking History Smoking history: Never smoked Have you smoked in the past 12 months: No Aproximately how many cigarettes per day: 0 Home Medications - Allergies Allergies/Adverse Reactions: Allergies Allergy/AdvReac Type Severity Reaction Status Date / Time No Known Allergies Allergy Verified 01/06/17 20:20 - Home Medications Home Medications: Ambulatory Orders Aspirin [Ecotrin] 81 mg PO DAILY 01/06/17 Furosemide [Lasix] 40 mg PO DAILY 01/06/17 Meloxicam [Mobic] 15 mg PO DAILY 01/06/17 Metformin HCl [Metformin HCl ER] 500 mg PO DAILY 01/06/17 Ramipril 5 mg PO DAILY 01/06/17 Simvastatin [Zocor -] 40 mg PO DAILY 01/06/17 Tamsulosin HCl [Flomax] 0.4 mg PO DAILY 01/06/17 Family Disease History - Family Disease History Family History: Denies Review of Systems - Review of Systems Constitutional: reports: Malaise Eyes: reports: No Symptoms HENT: reports: No Symptoms Neck: reports: No Symptoms Cardiovascular: reports: Chest Pain, Edema, Shortness of Breath Respiratory: reports: SOB, SOB on Exertion Gastrointestinal: reports: No Symptoms Genitourinary: reports: No Symptoms Musculoskeletal: reports: No Symptoms Integumentary: reports: No Symptoms Neurological: reports: No Symptoms Endocrine: reports: No Symptoms Hematology/Lymphatic: reports: No Symptoms Psychiatric: reports: No Symptoms Physical Exam Vital Signs: Vital Signs Temperature 98.1 F 01/07/17 15:09 Pulse Rate 61 01/07/17 15:09 Respiratory Rate 20 01/07/17 15:09 Blood Pressure 114/61 01/07/17 15:09 O2 Sat by Pulse Oximetry (%) 99 01/07/17 15:09 Constitutional: Yes: Calm Eyes: Yes: Conjunctiva Clear HENT: Yes: Atraumatic Cardiovascular: Yes: S1, S2 Respiratory: Yes: On Nasal O2 Gastrointestinal: Yes: Soft, Abdomen, Obese Musculoskeletal: Yes: WNL Edema: Yes Edema: LLE: 1+, RLE: 1+ Neurological: Yes: Oriented Psychiatric: Yes: Oriented Labs: CBC, BMP 01/07/17 05:52 01/07/17 05:52 Laboratory Tests 12/07/12 12/08/12 01/06/17 21:16 06:00 21:00 WBC 8.9 D Hgb 9.1 L D Plt Count 202 Sodium Potassium Chloride Carbon Dioxide Anion Gap BUN Creatinine 0.8 0.9 Troponin I B-Natriuretic Peptide 01/06/17 01/06/17 01/07/17 21:00 21:00 03:25 WBC Hgb Plt Count Sodium Potassium Chloride Carbon Dioxide Anion Gap BUN Creatinine 1.9 H D Troponin I 0.64 H* B-Natriuretic Peptide 03999.39 H 01/07/17 01/07/17 05:52 05:52 WBC 7.8 Hgb 8.8 L Plt Count 189 Sodium 142 Potassium 5.0 Chloride 106 Carbon Dioxide 22 Anion Gap 14 BUN 35 H Creatinine 1.9 H Troponin I B-Natriuretic Peptide Imaging - Results Chest X-ray: Report Reviewed Problem List - Problems (1) Chest pain Code(s): R07.9 - CHEST PAIN, UNSPECIFIED Qualifiers: Chest pain type: precordial pain Qualified Code(s): R07.2 - Precordial pain (2) Congestive heart disease Code(s): I50.9 - HEART FAILURE, UNSPECIFIED Qualifiers: Congestive heart failure type: unspecified congestive heart failure type Congestive heart failure chronicity: acute Qualified Code(s): I50.9 - Heart failure, unspecified (3) Dyspnea Code(s): R06.00 - DYSPNEA, UNSPECIFIED Qualifiers: Dyspnea type: shortness of breath Qualified Code(s): R06.02 - Shortness of breath (4) Edema leg Code(s): R60.0 - LOCALIZED EDEMA Qualifiers: Laterality: bilateral Qualified Code(s): R60.0 - Localized edema (5) TOBIAS (acute kidney injury) Code(s): N17.9 - ACUTE KIDNEY FAILURE, UNSPECIFIED Assessment/Plan Current Medications Generic Name Dose Route Start Last Admin Trade Name Freq PRN Reason Stop Dose Admin Aspirin 81 mg 01/07/17 10:00 01/07/17 11:06 Ecotrin - PO 81 mg DAILY REGINO Administration Atorvastatin Calcium 80 mg 01/07/17 22:00 Lipitor - PO HS REGINO Heparin Sodium (Porcine) 1,000 unit 01/07/17 04:43 Heparin - IVPUSH PRN PRN Heparin Heparin Sodium (Porcine) 5,000 unit 01/07/17 04:43 01/07/17 05:11 Heparin - IVPUSH 5,000 unit PRN PRN Administration Heparin Heparin Sodium (Porcine) 25, 500 mls @ 20 mls/hr 01/07/17 04:45 01/07/17 12:31 000 unit/ Sodium Chloride IV 950 unit/hr TITR REGINO Titration Protocol 1,000 UNIT/HR Metoprolol Succinate 25 mg 01/07/17 10:00 01/07/17 11:06 Toprol Xl - PO 25 mg BID REGINO Administration Impression 1. TOBIAS 2. CHF 3. DM 4. HTN 5. fluid overload 6. NSTEMI 7. hyperlipidemia Plan - agree with lasix - will check renal ultrasound - check urine studies and urea - stop metformin for now as creatinine is elevated - repeat labs in am - possible cardiorenal, will follow response to lasix Dr Blanton
[2017-01-07 17:29] LABS: TROPONIN I 0.58 ng/ml (0.00-0.05)
[2017-01-07] MEDS: ATORVASTATIN CA 80 MG TABLET (FP) PO SCH (21:19)
[2017-01-07 21:21] LABS: URINE APPEARANCE CLEAR; URINE BILIRUBIN NEGATIVE (NEGATIVE); URINE BLOOD NEGATIVE (NEGATIVE); URINE COLOR STRAW; URINE GLUCOSE (UA) NEGATIVE (NEGATIVE); URINE KETONE NEGATIVE (NEGATIVE); URINE LEUK ESTERASE NEGATIVE (NEGATIVE); URINE NITRITE NEGATIVE (NEGATIVE); URINE PROTEIN NEGATIVE (NEGATIVE); URINE UROBILINOGEN NEGATIVE E.U./dl (0.2-1.0)
[2017-01-07 21:33] LABS: SODIUM,RANDOM URINE 24 MMOL/L
[2017-01-07 21:34] LABS: CHLORIDE,RANDOM URINE < 10 MMOL/L
[2017-01-08 06:06] LABS: SERUM IRON 41 ug/dL (27-139); TOTAL IRON BINDING CAPACITY 364 ug/dL (250-450); UIBC 323 ug/dL (118-369)
[2017-01-08 07:19] LABS: BILIRUBIN,TOTAL 0.4 mg/dL (0.2-1.0); CALCIUM 7.9 mg/dL (8.5-10.1); CREATININE 1.4 mg/dL (0.55-1.02); MAGNESIUM 2.2 mg/dL (1.8-2.4); PHOSPHOROUS 3.8 mg/dL (2.5-4.9); TOT PROT 5.1 g/dl (6.4-8.2)
[2017-01-08 07:21] LABS: FERRITIN 13.799 ng/ml (6.9-282.5)
[2017-01-08] MEDS ORDERED: HEPARIN INFUSION - 500 ML IVPB ONE (07:23)
[2017-01-08] MEDS: HEPARIN - 25,000 UNIT in SODIUM CHLORIDE 495 ML IV SCH (08:18)
--- NOTE | 2017-01-08 09:53 | PN ---
Progress Note (short form) - Note Progress Note: Chief Complaint: sob/cp S: + sob ambulating to bathroom, improving. tenderness to palpation of sternum but no cp. no palps, dizziness. Cardio Dr. Sterling. Current Medications Aspirin (Ecotrin -) 81 mg PO DAILY [facility] Last Admin: 01/07/17 11:06 Dose: 81 mg Atorvastatin Calcium (Lipitor -) 80 mg PO HS [facility] Last Admin: 01/07/17 21:19 Dose: 80 mg Heparin Sodium (Porcine) (Heparin -) 1,000 unit IVPUSH PRN PRN PRN Reason: Heparin Heparin Sodium (Porcine) (Heparin -) 5,000 unit IVPUSH PRN PRN PRN Reason: Heparin Last Admin: 01/07/17 05:11 Dose: 5,000 unit Heparin Sodium (Porcine) 25, (000 unit/ Sodium Chloride) 500 mls @ 20 mls/hr IV TITR REGINO; 1,000 UNIT/HR PRN Reason: Protocol Last Admin: 01/08/17 08:18 Dose: 19 mls/hr Metoprolol Succinate (Toprol Xl -) 25 mg PO BID [facility] Last Admin: 01/07/17 21:19 Dose: 25 mg Vital Signs - 24 hr 01/07/17 01/07/17 01/07/17 13:37 15:09 22:00 Temperature 98.1 F 98.2 F Pulse Rate 61 69 Pulse Rate [ 61 Right] Respiratory 16 20 20 Rate Blood Pressure 114/61 100/35 Blood Pressure 110/45 [Right Arm] O2 Sat by Pulse 99 99 97 Oximetry (%) 01/08/17 01/08/17 02:00 06:00 Temperature 97.8 F 97.7 F Pulse Rate 76 74 Pulse Rate [ Right] Respiratory 20 20 Rate Blood Pressure 144/52 119/48 Blood Pressure [Right Arm] O2 Sat by Pulse Oximetry (%) Intake & Output 01/06/17 01/07/17 01/08/17 01/09/17 07:59 07:59 07:59 07:59 Intake Total 238 Output Total 350 Balance -112 Weight 182 lb 181 lb 8 oz Constitutional: Yes: Well Nourished, No Distress Eyes: No: Sclera Icterus HENT: No: Nasal Congestion Neck: No: Decreased ROM Respiratory: Yes: trace bibasilar rales. No: Accessory Muscle Use, Rales, Wheezes Gastrointestinal: Yes: Normal Bowel Sounds. No: Distention, Hepatomegaly, Palpable Mass, Tenderness Cardiovascular: Yes: Regular Rate and Rhythm. JVD: Yes Carotid Bruit: No PMI: Non-Displaced Heart Sounds: Yes: S1, S2. No: Gallop Murmur: Yes: Systolic Murmur (3/6 early THOMAS rusb and 2/6 sys at apex). No: Diastolic Murmur Musculoskeletal: Yes: Other (No kyphosis) Extremities: No: Cold, Cyanosis Edema: No Peripheral Pulses: 2+ Left Carotid, 2+ Right Carotid, 2+ Left Doralis Pedis, 2+ Right Dorsalis Pedis Integumentary: No: Jaundice Neurological: Yes: Alert, Oriented (x3) Psychiatric: No: Agitated ttp of sternum - Other Data Labs, Other Data: CBC, BMP 01/07/17 05:52 01/08/17 05:35 Laboratory Tests 01/07/17 01/08/17 05:52 05:35 BUN 35 H Magnesium 2.2 Total Bilirubin 0.4 AST 10 L D ALT 11 L Alkaline Phosphatase 96 Albumin 3.0 L ekg in ER: NSR, RBBB; diffuse ST-T abnormalities unchanged vs 12/27/16 office (no path q's) echo: Mild LVH. nl BiV size/fn. 1+ lae. bioavr --> severe (MG 46, MERRICK 0.6), 1+ ar, mod mac, mod mr, 1+ tr rvsp 50-60 renal u/s: rt kidney slightly smaller 8.3 cm (lt 10.3 cm). B pleural effusions seen. Imaging - Results Chest X-ray: Report Reviewed, Image Reviewed Assessment/Plan Echo 2012: nl LV/EF; nl RV size; nl LA; severe ; mild MR/TR; RVSP 54; small peric eff Echo 12/2015 (office): nl LVEF; mild-mod LVH; nl RV; nl fxn bioAVR; mild MR MPI 2014: no STs; no ischemia; nl EF LHC 2012: non-obs CAD 81 yo with h/o bio AVR, dCHF, HTN, HL here with cp and sob presumed acute diastolic HF exacerbation. sob, acute diast CHF -known h/o diast CHF, GARCIA sx's exacerbated pt lasix non-adherence in past; -09/05 empiric trial of incr lasix (40 qd to bid) rx'd by hallie in office--no f/u with him since -CXR here (my review) shows small bilat effusons likely, with diffuse marked interstitial pattern new vs 11/06 (no vasc redistribution appreciated)--suspect acute CHF -BNP 12K not terribly helpful in setting of low GFR/TOBIAS -hx suggestive of gradually decompensated chronic HFpEF sec to med noncompliance , probable JVD on exam -s/p lasix 40 IVP in ER overnight 01/06 -01/08: still with pleural effusions on exam. Repeat lasix 40 IVP. 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 Will need MICHELLE for further evaluation. Had prior surgery at [facility] [place], may need coordination with CT surgeons over there. Will discuss with primary tomahawk weapon system operator. atypical CP: -trop 0.05-->0.64-->0.74 -ECG with no ischemic changes (marked ST-Ts at baseline 12/27 in office) -rpt ECG now, trend enzymes -suspect enzymes sec to acute chf and cp m-skel but cannot be certain by history --will plan persantine nuclear stress test while here vx. [facility] if patient will have consideration for repeat valve intervention. No RWMA on repeat echo here. -pre-AVR cath 2012 with nonobs CAD -*per dr sterling notes, known h/o atypical CP with m-skel features with neg nuclear stress test 2014 for these sx's; -cont home ASA, bb, statin - cont UFH for now pending serial enzymes trend and echo/ecg -given plavix 300mg load in ER--will hold for now given also on ASA and UFH with hgb 8s-9s, down from 2013 with no recent values to rectifying attendant baseline -close H/H f/u on ASA/UFH -sx description and BPs trend not suggestive of acute aorta pathology TOBIAS: -creat 0;9 in 2013, ? more recent baseline labs (does pt f/u with any office MDs ?) -monitor lab trend s/p lasix yesterday -? renal c/s--per hospitalist h/o bio AV replacement (for ): - now with evidence of restenosis, see discussion above. HTN: -bp controlled -hold home GLENN given TOBIAS here, cont metopr -observe BP trend HPL: -cont home statin DM2: -on orals at home -per hospitalist anemia: -? acute, no recent baseline -stool guaiac ordered, iron studies -trend daily while on AC (home med regimen: ASA 81, metopr 25 bid, simva 40, lasix 40 qd-bid, ramipril 5 , metformin)
[2017-01-08] MEDS ORDERED: CLOPIDOGREL BISULFATE 75 MG TABLET (FP) PO SCH (10:00)
[2017-01-08] MEDS: ASPIRIN COATED 81 MG TABLET.EC PO SCH (10:28)
[2017-01-08] MEDS: METOPROLOL SUCCINATE 25 MG TAB.SR.24H (FP) PO SCH ×2 (10:28→21:12)
[2017-01-08] MEDS ORDERED: FUROSEMIDE 40 MG/4 ML INJECTABLE VIAL IVPB ONE (11:30)
--- NOTE | 2017-01-08 14:38 | PN ---
Progress Note, Physician History of Present Illness: Pt seen and examined at bedside. She is awake and alert. She says she feels better today and denies dizziness or headache. - Current Medication List Current Medications: Active Medications Aspirin (Ecotrin -) 81 mg PO DAILY [facility] Last Admin: 01/08/17 10:28 Dose: 81 mg Atorvastatin Calcium (Lipitor -) 80 mg PO HS [facility] Last Admin: 01/07/17 21:19 Dose: 80 mg Heparin Sodium (Porcine) (Heparin -) 1,000 unit IVPUSH PRN PRN PRN Reason: Heparin Heparin Sodium (Porcine) (Heparin -) 5,000 unit IVPUSH PRN PRN PRN Reason: Heparin Last Admin: 01/07/17 05:11 Dose: 5,000 unit Heparin Sodium (Porcine) 25, (000 unit/ Sodium Chloride) 500 mls @ 20 mls/hr IV TITR REGINO; 1,000 UNIT/HR PRN Reason: Protocol Last Admin: 01/08/17 08:18 Dose: 19 mls/hr Metoprolol Succinate (Toprol Xl -) 25 mg PO BID [facility] Last Admin: 01/08/17 10:28 Dose: 25 mg - Objective Vital Signs: Vital Signs Temperature 98.0 F 01/08/17 14:23 Pulse Rate 66 01/08/17 14:23 Respiratory Rate 18 01/08/17 14:23 Blood Pressure 111/49 01/08/17 14:23 O2 Sat by Pulse Oximetry (%) 97 01/07/17 22:00 Constitutional: Yes: Calm Eyes: Yes: Conjunctiva Clear HENT: Yes: Atraumatic Neck: Yes: Supple Cardiovascular: Yes: JVD, S1, S2 Respiratory: Yes: CTA Bilaterally, On Nasal O2 Gastrointestinal: Yes: Soft, Abdomen, Obese Genitourinary: Yes: WNL Musculoskeletal: Yes: WNL Edema: Yes Edema: LLE: 1+, RLE: 1+ Neurological: Yes: Oriented Psychiatric: Yes: Oriented Labs: CBC, BMP 01/07/17 05:52 01/08/17 05:35 INR, PTT INR 1.14 (0.82-1.09) 01/07/17 09:55 Problem List - Problems (1) Chest pain Code(s): R07.9 - CHEST PAIN, UNSPECIFIED Qualifiers: Chest pain type: precordial pain Qualified Code(s): R07.2 - Precordial pain (2) Congestive heart disease Code(s): I50.9 - HEART FAILURE, UNSPECIFIED Qualifiers: Congestive heart failure type: unspecified congestive heart failure type Congestive heart failure chronicity: acute Qualified Code(s): I50.9 - Heart failure, unspecified (3) Dyspnea Code(s): R06.00 - DYSPNEA, UNSPECIFIED Qualifiers: Dyspnea type: shortness of breath Qualified Code(s): R06.02 - Shortness of breath (4) Edema leg Code(s): R60.0 - LOCALIZED EDEMA Qualifiers: Laterality: bilateral Qualified Code(s): R60.0 - Localized edema (5) TOBIAS (acute kidney injury) Code(s): N17.9 - ACUTE KIDNEY FAILURE, UNSPECIFIED Assessment/Plan Current Medications Generic Name Dose Route Start Last Admin Trade Name Freq PRN Reason Stop Dose Admin Aspirin 81 mg 01/07/17 10:00 01/08/17 10:28 Ecotrin - PO 81 mg DAILY REGINO Administration Atorvastatin Calcium 80 mg 01/07/17 22:00 01/07/17 21:19 Lipitor - PO 80 mg HS REGINO Administration Heparin Sodium (Porcine) 1,000 unit 01/07/17 04:43 Heparin - IVPUSH PRN PRN Heparin Heparin Sodium (Porcine) 5,000 unit 01/07/17 04:43 01/07/17 05:11 Heparin - IVPUSH 5,000 unit PRN PRN Administration Heparin Heparin Sodium (Porcine) 25, 500 mls @ 20 mls/hr 01/07/17 04:45 01/08/17 08:18 000 unit/ Sodium Chloride IV 19 mls/hr TITR REGINO Administration Protocol 1,000 UNIT/HR Metoprolol Succinate 25 mg 01/07/17 10:00 01/08/17 10:28 Toprol Xl - PO 25 mg BID REGINO Administration Selected Entries 01/06/17 01/07/17 01/07/17 20:20 06:33 15:09 Blood Pressure 134/44 107/47 114/61 01/07/17 01/08/17 01/08/17 22:00 02:00 06:00 Blood Pressure 100/35 144/52 119/48 01/08/17 01/08/17 10:29 14:23 Blood Pressure 124/63 111/49 Impression 1. TOBIAS 2. CHF 3. DM 4. HTN 5. fluid overload 6. NSTEMI 7. hyperlipidemia Plan - cont with lasix - discussed with cardio - echo reviewed - renal function is improving - BP is stable, all bp values noted above - renal ultrasound reviewed, right kidney is smaller than left by 2 cm - repeat labs in am - repeat cxr in am - will evaluate for lasix daily Dr Blanton
--- NOTE | 2017-01-08 15:07 | MSN ---
Progress Note (short form) - Note Progress Note: SUBJECTIVE: Pt seen and examined at bedside. BLADIMIR overnight. Pt has no complaints this morning. Admits to episode of SOB when walking back from morning shower having to drag her IV pole. Denies fevers, chills, CP, palpitations, SOB at rest, nausea, vomiting, diaphoresis, abdominal pain, or dysuria. Active Medications Generic Name Dose Route Start Last Admin Trade Name Freq PRN Reason Stop Dose Admin Aspirin 81 mg 01/07/17 10:00 01/08/17 10:28 Ecotrin - PO 81 mg DAILY REGINO Administration Atorvastatin Calcium 80 mg 01/07/17 22:00 01/07/17 21:19 Lipitor - PO 80 mg HS REGINO Administration Heparin Sodium (Porcine) 1,000 unit 01/07/17 04:43 Heparin - IVPUSH PRN PRN Heparin Heparin Sodium (Porcine) 5,000 unit 01/07/17 04:43 01/07/17 05:11 Heparin - IVPUSH 5,000 unit PRN PRN Administration Heparin Heparin Sodium (Porcine) 25, 500 mls @ 20 mls/hr 01/07/17 04:45 01/08/17 08:18 000 unit/ Sodium Chloride IV 19 mls/hr TITR REGINO Administration Protocol 1,000 UNIT/HR Metoprolol Succinate 25 mg 01/07/17 10:00 01/08/17 10:28 Toprol Xl - PO 25 mg BID REGINO Administration OBJECTIVE: Vital Signs Period Temp Pulse Resp BP Sys/Tinsley Pulse Ox Last 24 Hr 97.7 F-98.2 F 61-76 18-20 100-144/35-63 97-97 GENERAL: Well nourished, well developed female, AAOx3 in NAD HEAD: Normocephalic, atraumatic, PERRLA, EOMI NECK: No JVD in sitting position HEART: RRR with +S1/S2, holosystolic ejection murmur heard @ R 2nd ICS > L , no gallops/rubs LUNGS: Bibasilar crackles, negative rhonchi/wheezing ABDOMEN: Obese, soft, nondistended, non tender to palpation, dullness to percussion, normal bowel sounds diffusely EXT: Warm to touch, no signs of venous stasis or PAD, +2 DP palpated BL, no edema BL LE NEURO: Normal speech, CN2-12 intact, motor and sensation grossly intact CBC WBC 7.8 K/mm3 (4.0-10.0) 01/07/17 05:52 RBC 3.53 M/mm3 (3.60-5.2) L 01/07/17 05:52 Hgb 8.8 GM/dL (10.7-15.3) L 01/07/17 05:52 Hct 27.2 % (32.4-45.2) L 01/07/17 05:52 MCV 77.2 fl (80-96) L 01/07/17 05:52 MCHC 32.2 g/dl (32.0-36.0) 01/07/17 05:52 RDW 16.7 % (11.6-15.6) H 01/07/17 05:52 Plt Count 189 K/MM3 (134-434) 01/07/17 05:52 MPV 11.6 fl (7.5-11.1) H 01/07/17 05:52 Neutrophils % 62.1 % (42.8-82.8) 01/07/17 05:52 Lymphocytes % 23.2 % (8-40) D 01/07/17 05:52 Monocytes % 9.2 % (3.8-10.2) 01/07/17 05:52 Eosinophils % 4.7 % (0-4.5) H 01/07/17 05:52 Basophils % 0.8 % (0-2.0) 01/07/17 05:52 CMP Sodium 140 mmol/L (136-145) 01/08/17 05:35 Potassium 4.5 mmol/L (3.5-5.1) 01/08/17 05:35 Chloride 107 mmol/L (98-107) 01/08/17 05:35 Carbon Dioxide 26 mmol/L (21-32) 01/08/17 05:35 Anion Gap 7 (8-16) L 01/08/17 05:35 BUN 26 mg/dL (7-18) H D 01/08/17 05:35 Creatinine 1.4 mg/dL (0.55-1.02) H D 01/08/17 05:35 Creat Clearance w eGFR 36.09 (>60) 01/08/17 05:35 Random Glucose 104 mg/dL (74-106) 01/08/17 05:35 Hemoglobin A1c % 5.0 % (4.8-6.0) 01/07/17 05:52 Calcium 7.9 mg/dL (8.5-10.1) L 01/08/17 05:35 Phosphorus 3.8 mg/dL (2.5-4.9) 01/08/17 05:35 Magnesium 2.2 mg/dL (1.8-2.4) 01/08/17 05:35 Iron 41 ug/dL (27-139) 01/07/17 05:52 TIBC 364 ug/dL (250-450) 01/07/17 05:52 Iron Saturation 11 % (15-55) L 01/07/17 05:52 Transferrin 308 mg/dL (200-370) 01/07/17 05:52 Ferritin 13.799 ng/ml (6.9-282.5) 01/08/17 05:35 Total Bilirubin 0.4 mg/dL (0.2-1.0) 01/08/17 05:35 AST 10 U/L (15-37) L D 01/08/17 05:35 ALT 11 U/L (12-78) L 01/08/17 05:35 Alkaline Phosphatase 96 U/L (45-117) 01/08/17 05:35 Creatine Kinase 126 IU/L (26-192) 01/07/17 15:20 Troponin I 0.58 ng/ml (0.00-0.05) H 01/07/17 15:20 B-Natriuretic Peptide 37578.39 pg/ml (5-450) H 01/06/17 21:00 Total Protein 5.1 g/dl (6.4-8.2) L 01/08/17 05:35 Albumin 3.0 g/dl (3.4-5.0) L 01/08/17 05:35 Triglycerides 74 mg/dL (35-160) D 01/07/17 05:52 Cholesterol 111 mg/dL (50-200) 01/07/17 05:52 Total LDL Cholesterol 66 mg/dL (5-100) 01/07/17 05:52 HDL Cholesterol 38 mg/dL (40-60) L D 01/07/17 05:52 ECHO (01/07/17): LV/RV nml in size, mild conc LVH, LV fxn nml, mild LAE, no RWMA , mod MR, mild TR, elevated RV sys pressure @ 50-60mmHg, mod pulm HTN, severe aortic valve thickening with AV area 0.6cm2, severe , aortic mean pressure gradient is 46mmHg Bladder/Renal US (01/07/17): R kidney measures 8.3cm and is smaller than L kidney , negative hydronephrosis, no mass/stones, normal post void residual volume A/P: Pt is a 81 yo F with a PMHx of HTN, HLD, DM2, diastolic CHF, and bioAVR (2012) who presents to the ED with chronic, worsening dyspnea on exertion and an acute increase in L sided CP. Pt was admitted to telemetry for NSTEMI with acute diastolic CHF exacerbation. 1. Atypical chest pain with NSTEMI -Cardiology consult appreciated -Troponin I: 0.05 -> 0.64 -> 0.74 -> 0.58 -EKG: NSR, RBBB, T wave inversion. Pt has baseline ST-Ts changes per outpatient cardio records -Troponin leak likely 2/2 acute CHF exacerbation -Given ASA 162mg, Clopidogrel 300mg, and Atorvastatin 40mg in ER -Continue Heparin gtt per cardio -aPTT of 62 this morning -Continue to monitor aPTT and CBC -Continuos cardiac monitoring 2. Acute diastolic CHF exacerbation -Likely 2/2 to Lasix noncompliance and symptomatic bioAVR restenosis -CXR: BL pleural effusions -Repeat CXR in AM -BNP of 13,000 ? in setting of decreased GFR and TOBIAS -Lasix 40mg IV once given today (2nd dose total, first dose in ER) -Continue Lasix pending AM BUN/Cr -Daily weights -Monitor I/Os -Fluid restricted diet 3. Bioprosthetic aortic valve -S/P AV replacement in 2012 -ECHO (01/08/17): Severe thickening of bioAVR, severe , decreased aortic valve area -Needs MICHELLE for further evaluation of bioAVR -? Transfer to [facility] [place] where valve replacement was done in 2012 for further management with possible balloon valvuloplasty 4. TOBIAS -Improving. BUN/Cr decreased to 26/1.4 -? Baseline of 0.8-0.9 (2013 admission) -Bladder/Renal US performed -Renal aa US pending -2/2 to pre-renal etiology from decreased cardiac output -FeNa calculated to 0.7% correlates to pre-renal -Optimizing cardiac output with Tx of acute CHF should help to improve kidney fxn -Monitor BUN/Cr 5. Microcytic anemia -Stable w/ no signs of active bleeding -Stool guaiac negative -Iron studies revealed low iron saturation with low normal iron and ferritin levels -Likely 2/2 iron deficiency anemia -Start supplemental iron daily -Monitor CBC 6. HTN -Stable -Hold Ramipril 2/2 TOBIAS -Metoprolol 25mg PO BID 7. HLD -Stable -Lipitor 80mg PO HS daily 8. FEN -No IVF -Electrolytes WNL. Monitor and correct any electrolyte abnormalities on BMP -Sodium controlled diet. Fluid restricted diet to 1L/day 9. DVT ppx -Heparin gtt 10. Dispo -Admitted to telemetry for further monitoring and management -? Transfer to [facility] [place] for management of sclerotic bioAVR Ludwig Sanchez, MS3 Problem List - Problems (1) Chest pain (2) Congestive heart disease (3) Dyspnea
--- NOTE | 2017-01-08 16:15 | PN ---
Physical Exam: SUBJECTIVE: Patient seen and examined at bedside feels well no issues OBJECTIVE: Vital Signs Period Temp Pulse Resp BP Sys/Tinsley Pulse Ox Last 24 Hr 97.7 F-98.2 F 61-76 18-20 100-144/35-63 97-97 GENERAL: The patient is awake, alert, in no acute distress. EYES: PERRL ENT:moist mucous membranes. NECK: Trachea midline supple. LUNGS: Bibasilar crackles HEART: Regular rate and rhythm, S1, S2 loud systolic murmur heard at both sternal borders but mostly at the right upper sternal border there is JVD ABDOMEN: Soft, nontender, nondistended, normoactive bowel sounds EXTREMITIES: no edema. NEUROLOGICAL: Cranial nerves II through XII grossly intact. Normal speech, gait not observed. Laboratory Results - last 24 hr 01/07/17 01/07/17 01/07/17 05:52 05:52 15:20 PTT (Actin FS) Sodium Potassium Chloride Carbon Dioxide Anion Gap BUN Creatinine Creat Clearance w eGFR Random Glucose Calcium Phosphorus Magnesium Iron 41 TIBC 364 Iron Saturation 11 L Transferrin 308 Ferritin Total Bilirubin AST ALT Alkaline Phosphatase Creatine Kinase 126 Troponin I 0.58 H Total Protein Albumin Urine Color Urine Appearance Urine pH Ur Specific [place] Urine Protein Urine Glucose (UA) Urine Ketones Urine Blood Urine Nitrite Urine Bilirubin Urine Urobilinogen Ur Leukocyte Esterase Ur Random Sodium Ur Random Potassium Ur Random Chloride Ur Random Urea Nitrogn Urine Creatinine 01/07/17 01/07/17 01/07/17 21:00 21:00 21:00 PTT (Actin FS) Sodium Potassium Chloride Carbon Dioxide Anion Gap BUN Creatinine Creat Clearance w eGFR Random Glucose Calcium Phosphorus Magnesium Iron TIBC Iron Saturation Transferrin Ferritin Total Bilirubin AST ALT Alkaline Phosphatase Creatine Kinase Troponin I Total Protein Albumin Urine Color Straw Urine Appearance Clear Urine pH 5.0 Ur Specific [place] 1.005 Urine Protein Negative Urine Glucose (UA) Negative Urine Ketones Negative Urine Blood Negative Urine Nitrite Negative Urine Bilirubin Negative Urine Urobilinogen Negative Ur Leukocyte Esterase Negative Ur Random Sodium 24 Ur Random Potassium 14.6 Ur Random Chloride < 10 Ur Random Urea Nitrogn 328 Urine Creatinine 01/07/17 01/08/17 01/08/17 21:00 05:35 05:35 PTT (Actin FS) 62.0 H Sodium 140 Potassium 4.5 Chloride 107 Carbon Dioxide 26 Anion Gap 7 L BUN 26 H D Creatinine 1.4 H D Creat Clearance w eGFR 36.09 Random Glucose 104 Calcium 7.9 L Phosphorus 3.8 Magnesium 2.2 Iron TIBC Iron Saturation Transferrin Ferritin 13.799 Total Bilirubin 0.4 AST 10 L D ALT 11 L Alkaline Phosphatase 96 Creatine Kinase Troponin I Total Protein 5.1 L Albumin 3.0 L Urine Color Urine Appearance Urine pH Ur Specific [place] Urine Protein Urine Glucose (UA) Urine Ketones Urine Blood Urine Nitrite Urine Bilirubin Urine Urobilinogen Ur Leukocyte Esterase Ur Random Sodium Ur Random Potassium Ur Random Chloride Ur Random Urea Nitrogn Urine Creatinine 44.1 Active Medications Generic Name Dose Route Start Last Admin Trade Name Freq PRN Reason Stop Dose Admin Aspirin 81 mg 01/07/17 10:00 01/08/17 10:28 Ecotrin - PO 81 mg DAILY REGINO Administration Atorvastatin Calcium 80 mg 01/07/17 22:00 01/07/17 21:19 Lipitor - PO 80 mg HS REGINO Administration Heparin Sodium (Porcine) 1,000 unit 01/07/17 04:43 Heparin - IVPUSH PRN PRN Heparin Heparin Sodium (Porcine) 5,000 unit 01/07/17 04:43 01/07/17 05:11 Heparin - IVPUSH 5,000 unit PRN PRN Administration Heparin Heparin Sodium (Porcine) 25, 500 mls @ 20 mls/hr 01/07/17 04:45 01/08/17 08:18 000 unit/ Sodium Chloride IV 19 mls/hr TITR REGINO Administration Protocol 1,000 UNIT/HR Metoprolol Succinate 25 mg 01/07/17 10:00 01/08/17 10:28 Toprol Xl - PO 25 mg BID REGINO Administration ASSESSMENT/PLAN: 81F with a significant cardiac history presented to the ED with chest pain and shortness of breath found to have an NSTEMI atypical chest pain/NSTEMI:cardiology consult appreciated. possible troponinemia in the setting of circulatory overload from CHF as patient never picked up her diuretics monitor on telemetry continue hep gtt per protocol for now continue aspirin continue statin continue beta mariel (metoprolol) following is from cardiology office per cardiologists note: Echo 2012: nl LV/EF; nl RV size; nl LA; severe ; mild MR/TR; RVSP 54; small peric eff Echo 12/2015 (office): nl LVEF; mild-mod LVH; nl RV; nl fxn bioAVR; mild MR MPI 2014: no STs; no ischemia; nl EF C 2012: non-obs CAD HbA1C is 5.0 which is normal Acute on chronic diastolic CHF exacerbation/heart failure with preserved ejection fraction most likely the cause of her dyspnea on exertion, SOB, and orthopnea 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 possible cardiorenal syndrome avoid nephrotoxic drugs renally dose all medications nephrology consulted for further assistance should resolve with treatment of CHF exacerbation improving Severe aortic stenosis: s/p AVR possible thrombosis of valve will need MICHELLE cardiology to arrange for possible transfer to [facility] Microcytic anemia: mild Iron deficiency anemia stool for occult blood negative HTN: hold GLENN-I/ARBs due to renal injury will consider restarting GLENN-I/ARBs if renal function normalizes tomorrow continue Toprol XL 25mg po BID DM type 2: patient supposedly on metformin at home-stop metformin because of risk of lactic acidosis HbA1C is 5.0 at this time will do finger sticks for blood glucose monitoring TIDAC without sliding scale to trend her blood glucose for now-well controlled HLD: continue statin FEN: No IVF patient is fluid overloaded no electrolyte issues at this time will continue to trend them low fat low sodium diet PPx: Hep gtt/SCDs No GI PPx indiacted as no major or minor criteria met Patient is ambulating no PT consult at this time will evaluate the need for physical therapy on a daily basis Visit type - Emergency Visit Emergency Visit: Yes ED Registration Date: 01/06/17 Care time: The patient presented to the Emergency Department on the above date and was hospitalized for further evaluation of their emergent condition. - New Patient This patient is new to me today: No - Critical Care Critical Care patient: No
--- NOTE | 2017-01-08 16:29 | PN ---
Teaching Attending Note Name of Resident: Darrell Guillermo ATTENDING PHYSICIAN STATEMENT I saw and evaluated the patient. I reviewed the resident's note and discussed the case with the resident. I agree with the resident's findings and plan as documented. SUBJECTIVE: SOB with ambulating , no exertional CP . no fever or chills. . OBJECTIVE: NAD CV : RRR, 3/6 SM At base with radiation to carotids . ( no JVD while sitting in chair ) Lungs : decreased breath sounds at bases and bibasialr crackles Ext: no edema ASSESSMENT AND PLAN: 81 y/o lady withh/o Chronic Diastolic CHF , HTN, s/p bioprosthetic AVR, who presented with CP and SOB , she was found to have acute CHF exacerbation 1- Acute on chronic diastolic CHF . still SOB . - give IV lasix again today - possibly re-stenosis of AV is contributing - cont toprol 2- s/p bio-prosthetic AVR : now with restenosis. this needs to be re- evaluated. Case was d/w Card by resident , possible tx to [facility] for MICHELLE and intervention 3- Trop leak : probably demand ischemia due to CHF . trop trended down 4- TOBIAS : due to hepato-renal syndrome . improved with Diuresis 5- HTN: BB dispo : HLOC
--- NOTE | 2017-01-08 17:13 | EKG ---
Test Reason : Blood Pressure : / mmHG Vent. Rate : 066 BPM Atrial Rate : 066 BPM P-R Int : 150 ms QRS Dur : 140 ms QT Int : 444 ms P-R-T Axes : 055 001 012 degrees QTc Int : 465 ms NORMAL SINUS RHYTHM POSSIBLE LEFT ATRIAL ENLARGEMENT RIGHT BUNDLE BRANCH BLOCK T WAVE ABNORMALITY, CONSIDER INFEROLATERAL ISCHEMIA ABNORMAL ECG WHEN COMPARED WITH ECG OF 08-DEC-2012 09:33, NO SIGNIFICANT CHANGE WAS FOUND Confirmed by MONICA MEDINA, BINH ([id number]) on 01/08/2017 5:13:30 PM Referred By: Confirmed By:BINH ANDERSON MD
[2017-01-08] MEDS: FERROUS SO4 325 MG TABLET (FP) PO SCH (18:13)
[2017-01-08] MEDS ORDERED: PT OWN MED DRAWER 7, Y5N ONE ×2 (18:18→19:08)
[2017-01-08] MEDS: ATORVASTATIN CA 80 MG TABLET (FP) PO SCH (21:12)
[2017-01-09 06:08] LABS: SERUM IRON 31 ug/dL (27-139); TOTAL IRON BINDING CAPACITY 313 ug/dL (250-450); UIBC 282 ug/dL (118-369)
[2017-01-09 07:29] LABS: MCH 24.9 pg (25.7-33.7); MCHC 31.7 g/dl (32.0-36.0); MEAN CELL VOLUME 78.3 fl (80-96); MEAN PLT VOLUME 11.5 fl (7.5-11.1); PLATELET COUNT 182 K/MM3 (134-434); RDW 17.4 % (11.6-15.6); WHITE BLOOD COUNT 7.8 K/mm3 (4.0-10.0)
[2017-01-09 08:33] LABS: CALCIUM 8.7 mg/dL (8.5-10.1); CREATININE 1.4 mg/dL (0.55-1.02)
[2017-01-09] MEDS ORDERED: FUROSEMIDE 40 MG/4 ML INJECTABLE VIAL IVPUSH ONE (09:46)
[2017-01-09] MEDS: HEPARIN - 25,000 UNIT in SODIUM CHLORIDE 495 ML IV SCH (12:03)
[2017-01-09] MEDS: ASPIRIN COATED 81 MG TABLET.EC PO SCH (12:05)
[2017-01-09] MEDS: FERROUS SO4 325 MG TABLET (FP) PO SCH (12:05)
[2017-01-09] MEDS: METOPROLOL SUCCINATE 25 MG TAB.SR.24H (FP) PO SCH ×2 (12:05→21:14)
--- NOTE | 2017-01-09 12:28 | PN ---
Progress Note (short form) - Note Progress Note: Chief Complaint: sob/cp S: + sob ambulating still, but improving. tenderness to palpation of sternum but no cp. no palps, dizziness. Vital Signs Period Temp Pulse Resp BP Sys/Tinsley Pulse Ox Last 24 Hr 97.5 F-98.1 F 57-77 18-20 105-135/37-56 95-98 Constitutional: Yes: Well Nourished, No Distress Eyes: No: Sclera Icterus Respiratory: Yes: ctabl nl eff No: Accessory Muscle Use, Rales, Wheezes Gastrointestinal: Yes: Normal Bowel Sounds. No: Distention, Hepatomegaly, Palpable Mass, Tenderness Cardiovascular: Yes: Regular Rate and Rhythm. Heart Sounds: Yes: S1, S2. No: Gallop Murmur: Yes: Systolic Murmur (3/6 early THOMAS rusb and 2/6 sys at apex). No: Diastolic Murmur Musculoskeletal: Yes: Other (No kyphosis) Extremities: No: Cold, Cyanosis Edema: No Integumentary: No: Jaundice diaphoresis Neurological: Yes: Alert, Oriented (x3) Psychiatric: No: Agitated ttp of sternum Current Medications Generic Name Dose Route Start Last Admin Trade Name Freq PRN Reason Stop Dose Admin Aspirin 81 mg 01/07/17 10:00 01/09/17 12:05 Ecotrin - PO 81 mg DAILY REGINO Administration Atorvastatin Calcium 80 mg 01/07/17 22:00 01/08/17 21:12 Lipitor - PO 80 mg HS REGINO Administration Ferrous Sulfate 325 mg 01/08/17 17:30 01/09/17 12:05 Feosol - PO 325 mg DAILY REGINO Administration Heparin Sodium (Porcine) 1,000 unit 01/07/17 04:43 Heparin - IVPUSH PRN PRN Heparin Heparin Sodium (Porcine) 5,000 unit 01/07/17 04:43 01/07/17 05:11 Heparin - IVPUSH 5,000 unit PRN PRN Administration Heparin Heparin Sodium (Porcine) 25, 500 mls @ 20 mls/hr 01/07/17 04:45 01/09/17 12:03 000 unit/ Sodium Chloride IV 19 mls/hr TITR REGINO Administration Protocol 1,000 UNIT/HR Metoprolol Succinate 25 mg 01/07/17 10:00 01/09/17 12:05 Toprol Xl - PO 25 mg BID REGINO Administration CBC, BMP 01/09/17 06:00 01/09/17 06:00 ekg in ER: NSR, RBBB; diffuse ST-T abnormalities unchanged vs 12/27/16 office (no path q's) echo: Mild LVH. nl BiV size/fn. 1+ lae. bioavr --> severe (MG 46, MERRICK 0.6), 1+ ar, mod mac, mod mr, 1+ tr rvsp 50-60 renal u/s: rt kidney slightly smaller 8.3 cm (lt 10.3 cm). B pleural effusions seen. Echo 2012: nl LV/EF; nl RV size; nl LA; severe ; mild MR/TR; RVSP 54; small peric eff Echo 12/2015 (office): nl LVEF; mild-mod LVH; nl RV; nl fxn bioAVR; mild MR MPI 2014: no STs; no ischemia; nl EF LHC 2012: non-obs CAD a/p: 81 yo with h/o bio AVR, dCHF, HTN, HL here with cp and sob presumed acute diastolic HF exacerbation. sob, acute diast CHF -known h/o diast CHF, GARCIA sx's exacerbated pt lasix non-adherence in past; -09/05 empiric trial of incr lasix (40 qd to bid) rx'd by hallie in office--no f/u with him since -CXR here (my review) shows small bilat effusons likely, with diffuse marked interstitial pattern new vs 11/06 (no vasc redistribution appreciated)--suspect acute CHF -BNP 12K not terribly helpful in setting of low GFR/TOBIAS -hx suggestive of gradually decompensated chronic HFpEF -s/p few doses of iv lasix here, feeling better, lung exam improved -echo here showing new severe of bioAVR, needs MICHELLE and LHC (in light of recent troponin elevation) as part of work up for surgical intervention. Patient accepted by interventionalist at [facility] for transfer today -Con't heparin drip - obstruction 2/2 thrombus remains on differential. atypical CP: -trop 0.05-->0.64-->0.74 -ECG with no ischemic changes (marked ST-Ts at baseline 12/27 in office) -rpt ECG now, trend enzymes -suspect enzymes sec to acute chf and cp m-skel but cannot be certain by history --will plan persantine nuclear stress test while here vx. [facility] if patient will have consideration for repeat valve intervention. No RWMA on repeat echo here. 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 more recent baseline labs (does pt f/u with any office MDs ?) -cr stable today -renal following h/o bio AV replacement (for ): - now with evidence of restenosis, see discussion above. HTN: -bp controlled -hold home GLENN given TOBIAS here, cont metopr -observe BP trend HPL: -cont home statin DM2: -on orals at home -per hospitalist anemia: -? acute, no recent baseline -stool guaiac ordered, iron studies -trend daily while on AC (home med regimen: ASA 81, metopr 25 bid, simva 40, lasix 40 qd-bid, ramipril 5 , metformin)
--- NOTE | 2017-01-09 13:20 | PN ---
Progress Note, Physician History of Present Illness: Pt seen and examined at bedside. She is awake and alert. She is being transferred for cardiac cath. - Current Medication List Current Medications: Active Medications Aspirin (Ecotrin -) 81 mg PO DAILY [facility] Last Admin: 01/09/17 12:05 Dose: 81 mg Atorvastatin Calcium (Lipitor -) 80 mg PO HS [facility] Last Admin: 01/08/17 21:12 Dose: 80 mg Ferrous Sulfate (Feosol -) 325 mg PO DAILY [facility] Last Admin: 01/09/17 12:05 Dose: 325 mg Heparin Sodium (Porcine) (Heparin -) 1,000 unit IVPUSH PRN PRN PRN Reason: Heparin Heparin Sodium (Porcine) (Heparin -) 5,000 unit IVPUSH PRN PRN PRN Reason: Heparin Last Admin: 01/07/17 05:11 Dose: 5,000 unit Heparin Sodium (Porcine) 25, (000 unit/ Sodium Chloride) 500 mls @ 20 mls/hr IV TITR REGINO; 1,000 UNIT/HR PRN Reason: Protocol Last Admin: 01/09/17 12:03 Dose: 19 mls/hr Metoprolol Succinate (Toprol Xl -) 25 mg PO BID [facility] Last Admin: 01/09/17 12:05 Dose: 25 mg - Objective Vital Signs: Vital Signs Temperature 97.5 F L 01/09/17 10:00 Pulse Rate 71 01/09/17 10:00 Respiratory Rate 19 01/09/17 10:00 Blood Pressure 128/37 01/09/17 10:00 O2 Sat by Pulse Oximetry (%) 95 01/09/17 10:00 Constitutional: Yes: Calm Eyes: Yes: Conjunctiva Clear HENT: Yes: Atraumatic Cardiovascular: Yes: S1, S2 Respiratory: Yes: CTA Bilaterally Gastrointestinal: Yes: Soft, Abdomen, Obese Genitourinary: Yes: WNL Musculoskeletal: Yes: WNL Edema: Yes Edema: LLE: Trace, RLE: Trace Neurological: Yes: Oriented Psychiatric: Yes: Oriented Labs: CBC, BMP 01/09/17 06:00 01/09/17 06:00 INR, PTT INR 1.14 (0.82-1.09) 01/07/17 09:55 Problem List - Problems (1) Chest pain Code(s): R07.9 - CHEST PAIN, UNSPECIFIED Qualifiers: Chest pain type: precordial pain Qualified Code(s): R07.2 - Precordial pain (2) Congestive heart disease Code(s): I50.9 - HEART FAILURE, UNSPECIFIED Qualifiers: Congestive heart failure type: unspecified congestive heart failure type Congestive heart failure chronicity: acute Qualified Code(s): I50.9 - Heart failure, unspecified (3) Dyspnea Code(s): R06.00 - DYSPNEA, UNSPECIFIED Qualifiers: Dyspnea type: shortness of breath Qualified Code(s): R06.02 - Shortness of breath (4) Edema leg Code(s): R60.0 - LOCALIZED EDEMA Qualifiers: Laterality: bilateral Qualified Code(s): R60.0 - Localized edema (5) TOBIAS (acute kidney injury) Code(s): N17.9 - ACUTE KIDNEY FAILURE, UNSPECIFIED Assessment/Plan Current Medications Generic Name Dose Route Start Last Admin Trade Name Freq PRN Reason Stop Dose Admin Aspirin 81 mg 01/07/17 10:00 01/09/17 12:05 Ecotrin - PO 81 mg DAILY REGINO Administration Atorvastatin Calcium 80 mg 01/07/17 22:00 01/08/17 21:12 Lipitor - PO 80 mg HS REGINO Administration Ferrous Sulfate 325 mg 01/08/17 17:30 01/09/17 12:05 Feosol - PO 325 mg DAILY REGINO Administration Heparin Sodium (Porcine) 1,000 unit 01/07/17 04:43 Heparin - IVPUSH PRN PRN Heparin Heparin Sodium (Porcine) 5,000 unit 01/07/17 04:43 01/07/17 05:11 Heparin - IVPUSH 5,000 unit PRN PRN Administration Heparin Heparin Sodium (Porcine) 25, 500 mls @ 20 mls/hr 01/07/17 04:45 01/09/17 12:03 000 unit/ Sodium Chloride IV 19 mls/hr TITR REGINO Administration Protocol 1,000 UNIT/HR Metoprolol Succinate 25 mg 01/07/17 10:00 01/09/17 12:05 Toprol Xl - PO 25 mg BID REGINO Administration Impression 1. TOBIAS 2. CHF 3. DM 4. HTN 5. fluid overload 6. NSTEMI 7. hyperlipidemia Plan - renal function is stabilized - will do workup as outpt - pt is being transferred today for cardiac cath, which will possibly be done tomorrow. Discussed with cardio - recommend holding lasix bwfore cath. Pt appears more comfortable clinically. - risk of KAYLEEN explained to pt - can give fluids before cath and check creatinine 24 hours after - ultrasound is negative for CÉSAR Dr [place]
--- NOTE | 2017-01-09 14:22 | MSN ---
Progress Note (short form) - Note Progress Note: SUBJECTIVE: Pt seen and examined at bedside. BLADIMIR overnight. Pt has no complaints this morning. Admits to SOB on exertion but not at rest. Denies fevers, chills, CP, palpitations, nausea, vomiting, diaphoresis, abdominal pain , or dysuria. Active Medications Generic Name Dose Route Start Last Admin Trade Name Freq PRN Reason Stop Dose Admin Aspirin 81 mg 01/07/17 10:00 01/09/17 12:05 Ecotrin - PO 81 mg DAILY REGINO Administration Atorvastatin Calcium 80 mg 01/07/17 22:00 01/08/17 21:12 Lipitor - PO 80 mg HS REGINO Administration Ferrous Sulfate 325 mg 01/08/17 17:30 01/09/17 12:05 Feosol - PO 325 mg DAILY REGINO Administration Heparin Sodium (Porcine) 1,000 unit 01/07/17 04:43 Heparin - IVPUSH PRN PRN Heparin Heparin Sodium (Porcine) 5,000 unit 01/07/17 04:43 01/07/17 05:11 Heparin - IVPUSH 5,000 unit PRN PRN Administration Heparin Heparin Sodium (Porcine) 25, 500 mls @ 20 mls/hr 01/07/17 04:45 01/09/17 12:03 000 unit/ Sodium Chloride IV 19 mls/hr TITR REGINO Administration Protocol 1,000 UNIT/HR Metoprolol Succinate 25 mg 01/07/17 10:00 01/09/17 12:05 Toprol Xl - PO 25 mg BID REGINO Administration OBJECTIVE: Vital Signs Period Temp Pulse Resp BP Sys/Tinsley Pulse Ox Last 24 Hr 97.5 F-98.1 F 57-77 18-20 105-135/37-56 95-98 GENERAL: AAOx3 in NAD HEAD: Normocephalic, atraumatic, PERRLA, EOMI NECK: No JVD in flat position HEART: RRR with +S1/S2, holosystolic ejection murmur heard @ R 2nd ICS > L with radiation to BL carotids, no rubs/gallops LUNGS: Bibasilar crackles (same as yesterday), negative rhonchi/wheezing ABDOMEN: Obese, soft, nondistended, non tender to palpation, normal bowel sounds diffusely EXT: Warm to touch, no signs of venous stasis or PAD, +2 DP palpated BL, no edema BL LE NEURO: Normal speech, CN2-12 intact, motor and sensation grossly intact CBC WBC 7.8 K/mm3 (4.0-10.0) 01/09/17 06:00 RBC 3.62 M/mm3 (3.60-5.2) 01/09/17 06:00 Hgb 9.0 GM/dL (10.7-15.3) L 01/09/17 06:00 Hct 28.3 % (32.4-45.2) L 01/09/17 06:00 MCV 78.3 fl (80-96) L 01/09/17 06:00 MCHC 31.7 g/dl (32.0-36.0) L 01/09/17 06:00 RDW 17.4 % (11.6-15.6) H 01/09/17 06:00 Plt Count 182 K/MM3 (134-434) 01/09/17 06:00 MPV 11.5 fl (7.5-11.1) H 01/09/17 06:00 Neutrophils % 62.1 % (42.8-82.8) 01/07/17 05:52 Lymphocytes % 23.2 % (8-40) D 01/07/17 05:52 Monocytes % 9.2 % (3.8-10.2) 01/07/17 05:52 Eosinophils % 4.7 % (0-4.5) H 01/07/17 05:52 Basophils % 0.8 % (0-2.0) 01/07/17 05:52 CMP Sodium 140 mmol/L (136-145) 01/09/17 06:00 Potassium 4.6 mmol/L (3.5-5.1) 01/09/17 06:00 Chloride 105 mmol/L (98-107) 01/09/17 06:00 Carbon Dioxide 25 mmol/L (21-32) 01/09/17 06:00 Anion Gap 10 (8-16) 01/09/17 06:00 BUN 24 mg/dL (7-18) H 01/09/17 06:00 Creatinine 1.4 mg/dL (0.55-1.02) H 01/09/17 06:00 Creat Clearance w eGFR 36.09 (>60) 01/08/17 05:35 POC Glucometer 117 UNITS (()) 01/09/17 11:58 Random Glucose 99 mg/dL (74-106) 01/09/17 06:00 Hemoglobin A1c % 5.0 % (4.8-6.0) 01/07/17 05:52 Calcium 8.7 mg/dL (8.5-10.1) 01/09/17 06:00 Phosphorus 3.8 mg/dL (2.5-4.9) 01/08/17 05:35 Magnesium 2.2 mg/dL (1.8-2.4) 01/08/17 05:35 Iron 31 ug/dL (27-139) 01/08/17 05:35 TIBC 313 ug/dL (250-450) 01/08/17 05:35 Iron Saturation 10 % (15-55) L 01/08/17 05:35 Transferrin 308 mg/dL (200-370) 01/07/17 05:52 Ferritin 13.799 ng/ml (6.9-282.5) 01/08/17 05:35 Total Bilirubin 0.4 mg/dL (0.2-1.0) 01/08/17 05:35 AST 10 U/L (15-37) L D 01/08/17 05:35 ALT 11 U/L (12-78) L 01/08/17 05:35 Alkaline Phosphatase 96 U/L (45-117) 01/08/17 05:35 Creatine Kinase 126 IU/L (26-192) 01/07/17 15:20 Troponin I 0.58 ng/ml (0.00-0.05) H 01/07/17 15:20 B-Natriuretic Peptide 34117.39 pg/ml (5-450) H 01/06/17 21:00 Total Protein 5.1 g/dl (6.4-8.2) L 01/08/17 05:35 Albumin 3.0 g/dl (3.4-5.0) L 01/08/17 05:35 Triglycerides 74 mg/dL (35-160) D 01/07/17 05:52 Cholesterol 111 mg/dL (50-200) 01/07/17 05:52 Total LDL Cholesterol 66 mg/dL (5-100) 01/07/17 05:52 HDL Cholesterol 38 mg/dL (40-60) L D 01/07/17 05:52 CXR (01/09/17): BL pleural effusions slightly worsened since 01/07/17 Renal aa US (01/09/17): Markedly limited study - R renal artery is nml. L renal artery has moderate velocity increase. Cannot rule out CÉSAR in L artery. A/P: Pt is a 81 yo F with a PMHx of HTN, HLD, DM2, diastolic CHF, and bioAVR (2012) who presents to the ED with chronic, worsening dyspnea on exertion and an acute increase in L sided CP. Pt was admitted to telemetry for NSTEMI with acute diastolic CHF exacerbation. 1. Acute diastolic CHF exacerbation -Stable -Likely 2/2 to Lasix noncompliance and symptomatic bioAVR restenosis -CXR: BL pleural effusions -BNP of 13,000 ? in setting of decreased GFR and TOBIAS -Lasix 40mg IV once given today (3rd dose total) -Daily weights -Monitor I/Os -Fluid restricted diet 2. Restenosing bioprosthetic aortic valve -S/P AV replacement in 2012 -ECHO (01/08/17): Severe thickening of bioAVR, severe , decreased aortic valve area -Probably contributing to her acute diastolic CHF exacerbation -Will be transferred to [facility] where valve replacement was done. Planning to perform LHC. -Renal recommends holding Lasix before procedure and states pt can be given IVF for ppx against possible KAYLEEN 3. TOBIAS -Stable. BUN/Cr of 24/1.4 -? Baseline of 0.8-0.9 (2013 admission). Pt baseline could have increased since -2/2 to pre-renal etiology from decreased cardiac output -FeNa calculated to 0.7% correlates to pre-renal -Optimizing cardiac output with Tx of acute CHF should help to improve kidney fxn -Renal aa US performed. No R CÉSAR, cannot rule out L CÉSAR -Monitor BUN/Cr -Renal consult appreciated. States will FU outpt 4. Atypical chest pain with NSTEMI -Cardiology consult appreciated -Troponin I: 0.05 -> 0.64 -> 0.74 -> 0.58 -EKG: NSR, RBBB, T wave inversion. Pt has baseline ST-Ts changes per outpatient cardio records -Troponin leak likely 2/2 to demand from acute CHF exacerbation -Continue Heparin gtt per cardio. Cannot rule out thrombus formation on AV valve causing obstruction -aPTT of 63 this morning -Continue to monitor aPTT and CBC -Continuos cardiac monitoring 5. Microcytic anemia -Stable w/ no signs of active bleeding -Stool guaiac negative -Iron studies revealed low iron saturation with low normal iron and ferritin levels -Likely 2/2 iron deficiency anemia -Ferrous sulfate 325mg PO daily -Monitor CBC 6. HTN -Stable -Hold Ramipril 2/2 TOBIAS -Metoprolol 25mg PO BID 7. HLD -Stable -Lipitor 80mg PO HS daily 8. FEN -No IVF -Electrolytes WNL. Monitor and correct any electrolyte abnormalities on BMP -Sodium controlled diet. Fluid restricted diet to 1L/day 9. DVT ppx -Heparin gtt 10. Dispo -Pt will be transferred to [facility] today for further cardiology intervention ([facility] possibly tomorrow) Ludwig Sanchez, MS3 Problem List - Problems (1) Chest pain (2) Congestive heart disease (3) Dyspnea
--- NOTE | 2017-01-09 15:16 | PN ---
Physical Exam: SUBJECTIVE: Patient seen and examined at bedside. Feels much better today still SOB when ambulating but improved OBJECTIVE: Vital Signs Period Temp Pulse Resp BP Sys/Tinsley Pulse Ox Last 24 Hr 97.5 F-99.2 F 57-111 18-20 105-135/37-56 95-98 GENERAL: The patient is awake, alert, in no acute distress. EYES: PERRL ENT:moist mucous membranes. NECK: Trachea midline supple. LUNGS: Bibasilar crackles HEART: Regular rate and rhythm, S1, S2 loud systolic murmur heard at both sternal borders but mostly at the right upper sternal border ABDOMEN: Soft, nontender, nondistended, normoactive bowel sounds EXTREMITIES: no edema. NEUROLOGICAL: Cranial nerves II through XII grossly intact. Normal speech, gait not observed. Laboratory Results - last 24 hr 01/08/17 01/09/17 01/09/17 05:35 05:49 06:00 WBC RBC Hgb Hct MCV MCHC RDW Plt Count MPV PTT (Actin FS) 63.3 H Sodium Potassium Chloride Carbon Dioxide Anion Gap BUN Creatinine POC Glucometer 101 Random Glucose Calcium Iron 31 TIBC 313 Iron Saturation 10 L 01/09/17 01/09/17 01/09/17 06:00 06:00 11:58 WBC 7.8 RBC 3.62 Hgb 9.0 L Hct 28.3 L MCV 78.3 L MCHC 31.7 L RDW 17.4 H Plt Count 182 MPV 11.5 H PTT (Actin FS) Sodium 140 Potassium 4.6 Chloride 105 Carbon Dioxide 25 Anion Gap 10 BUN 24 H Creatinine 1.4 H POC Glucometer 117 Random Glucose 99 Calcium 8.7 Iron TIBC Iron Saturation Active Medications Generic Name Dose Route Start Last Admin Trade Name Freq PRN Reason Stop Dose Admin Aspirin 81 mg 01/07/17 10:00 01/09/17 12:05 Ecotrin - PO 81 mg DAILY REGINO Administration Atorvastatin Calcium 80 mg 01/07/17 22:00 01/08/17 21:12 Lipitor - PO 80 mg HS REGINO Administration Ferrous Sulfate 325 mg 01/08/17 17:30 01/09/17 12:05 Feosol - PO 325 mg DAILY REGINO Administration Heparin Sodium (Porcine) 1,000 unit 01/07/17 04:43 Heparin - IVPUSH PRN PRN Heparin Heparin Sodium (Porcine) 5,000 unit 01/07/17 04:43 01/07/17 05:11 Heparin - IVPUSH 5,000 unit PRN PRN Administration Heparin Heparin Sodium (Porcine) 25, 500 mls @ 20 mls/hr 01/07/17 04:45 01/09/17 12:03 000 unit/ Sodium Chloride IV 19 mls/hr TITR REGINO Administration Protocol 1,000 UNIT/HR Metoprolol Succinate 25 mg 01/07/17 10:00 01/09/17 12:05 Toprol Xl - PO 25 mg BID REGINO Administration ASSESSMENT/PLAN: 81F with a significant cardiac history presented to the ED with chest pain and shortness of breath found to have an NSTEMI atypical chest pain/NSTEMI:cardiology consult appreciated. possible troponinemia in the setting of circulatory overload from CHF as patient never picked up her diuretics monitor on telemetry continue hep gtt per protocol per cardiology PTT therapeutic continue aspirin continue statin continue beta mariel (metoprolol) following is from cardiology office per cardiologists note: Echo 2012: nl LV/EF; nl RV size; nl LA; severe ; mild MR/TR; RVSP 54; small peric eff Echo 12/2015 (office): nl LVEF; mild-mod LVH; nl RV; nl fxn bioAVR; mild MR MPI 2014: no STs; no ischemia; nl EF LHC 2012: non-obs CAD HbA1C is 5.0 which is normal Acute on chronic diastolic CHF exacerbation/heart failure with preserved ejection fraction most likely the cause of her dyspnea on exertion, SOB, and orthopnea patient did not flower buncher or picker lasix from the pharmacy f/u Echo daily weights strict I/Os 1 liter fluid restriction give another lasix 40mg IV today with caution not to over diurese given her aortic stenosis. patient is volume dependant TOBIAS:likely pre-renal from poor perfusion to the kidney from CHF. possible cardiorenal syndrome avoid nephrotoxic drugs renally dose all medications nephrology consulted for further assistance should resolve with treatment of CHF exacerbation improving Severe aortic stenosis: s/p AVR possible thrombosis of valve will need MICHELLE patient to be transferred to [facility] today for left heart cath and MICHELLE as pre-op for AVR Microcytic anemia: mild Iron deficiency anemia stool for occult blood negative Started on iron supplementation yesterday HTN: hold GLENN-I/ARBs due to renal injury will consider restarting GLENN-I/ARBs if renal function normalizes tomorrow continue Toprol XL 25mg po BID DM type 2: patient supposedly on metformin at home-stop metformin because of risk of lactic acidosis HbA1C is 5.0 at this time will do finger sticks for blood glucose monitoring TIDAC without sliding scale to trend her blood glucose for now-well controlled HLD: continue statin FEN: No IVF patient is fluid overloaded no electrolyte issues at this time will continue to trend them low fat low sodium diet PPx: Hep gtt/SCDs No GI PPx indiacted as no major or minor criteria met Patient is ambulating no PT consult at this time will evaluate the need for physical therapy on a daily basis Visit type - Emergency Visit Emergency Visit: Yes ED Registration Date: 01/06/17 Care time: The patient presented to the Emergency Department on the above date and was hospitalized for further evaluation of their emergent condition. - New Patient This patient is new to me today: No - Critical Care Critical Care patient: No
--- NOTE | 2017-01-09 15:46 | DS ---
Physical Exam: SUBJECTIVE: Patient seen and examined awaiting bed at [facility] for left heart cath and MICHELLE for pre-op prior to AVR OBJECTIVE: Vital Signs Period Temp Pulse Resp BP Sys/Tinsley Pulse Ox Last 24 Hr 97.5 F-99.2 F 57-111 18-20 105-135/37-56 95-98 PHYSICAL EXAM GENERAL: The patient is awake, alert, in no acute distress. EYES: PERRL ENT:moist mucous membranes. NECK: Trachea midline supple. LUNGS: Bibasilar crackles HEART: Regular rate and rhythm, S1, S2 loud systolic murmur heard at both sternal borders but mostly at the right upper sternal border ABDOMEN: Soft, nontender, nondistended, normoactive bowel sounds EXTREMITIES: no edema. NEUROLOGICAL: Cranial nerves II through XII grossly intact. Normal speech, gait not observed. LABS Laboratory Results - last 24 hr 01/08/17 01/09/17 01/09/17 05:35 05:49 06:00 WBC RBC Hgb Hct MCV MCHC RDW Plt Count MPV PTT (Actin FS) 63.3 H Sodium Potassium Chloride Carbon Dioxide Anion Gap BUN Creatinine POC Glucometer 101 Random Glucose Calcium Iron 31 TIBC 313 Iron Saturation 10 L 01/09/17 01/09/17 01/09/17 06:00 06:00 11:58 WBC 7.8 RBC 3.62 Hgb 9.0 L Hct 28.3 L MCV 78.3 L MCHC 31.7 L RDW 17.4 H Plt Count 182 MPV 11.5 H PTT (Actin FS) Sodium 140 Potassium 4.6 Chloride 105 Carbon Dioxide 25 Anion Gap 10 BUN 24 H Creatinine 1.4 H POC Glucometer 117 Random Glucose 99 Calcium 8.7 Iron TIBC Iron Saturation HOSPITAL COURSE: Date of Admission:01/06/17 Date of Discharge: 01/09/17 81F with a significant cardiac history presented to the ED with atypical chest pain found to have NSTEMI vs troponin leak in the setting of circulatory overload from acute on chronic diastolic CHF exacerbation. She was started on a heparin gtt and admitted to telemetry. She was also found to have acute kidney injury on presentation as well, which is likely secondary to low flow to the kidney from CHF. She was cautiously diuresed with lasix. She had her aortic valve replaced 4 years ago and had an echo done during this hospitalization which showed a severe decreased radius of the AVR. Seen by cardiology and set up for transfer to left heart cath and MICHELLE for pre-op evaluation of another aortic valve replacement. Below is the last plan for the patient prior to discharge: 81F with a significant cardiac history presented to the ED with chest pain and shortness of breath found to have an NSTEMI atypical chest pain/NSTEMI:cardiology consult appreciated. possible troponinemia in the setting of circulatory overload from CHF as patient never picked up her diuretics monitor on telemetry continue hep gtt per protocol per cardiology PTT therapeutic continue aspirin continue statin continue beta mariel (metoprolol) following is from cardiology office per cardiologists note: Echo 2012: nl LV/EF; nl RV size; nl LA; severe ; mild MR/TR; RVSP 54; small peric eff Echo 12/2015 (office): nl LVEF; mild-mod LVH; nl RV; nl fxn bioAVR; mild MR MPI 2014: no STs; no ischemia; nl EF LHC 2012: non-obs CAD HbA1C is 5.0 which is normal Acute on chronic diastolic CHF exacerbation/heart failure with preserved ejection fraction most likely the cause of her dyspnea on exertion, SOB, and orthopnea patient did not hand picker lasix from the pharmacy f/u Echo daily weights strict I/Os 1 liter fluid restriction give another lasix 40mg IV today with caution not to over diurese given her aortic stenosis. patient is volume dependant TOBIAS:likely pre-renal from poor perfusion to the kidney from CHF. possible cardiorenal syndrome avoid nephrotoxic drugs renally dose all medications nephrology consulted for further assistance should resolve with treatment of CHF exacerbation improving Severe aortic stenosis: s/p AVR possible thrombosis of valve will need MICHELLE patient to be transferred to [facility] today for left heart cath and MICHELLE as pre-op for AVR Microcytic anemia: mild Iron deficiency anemia stool for occult blood negative Started on iron supplementation yesterday HTN: hold GLENN-I/ARBs due to renal injury will consider restarting GLENN-I/ARBs if renal function normalizes tomorrow continue Toprol XL 25mg po BID DM type 2: patient supposedly on metformin at home-stop metformin because of risk of lactic acidosis HbA1C is 5.0 at this time will do finger sticks for blood glucose monitoring TIDAC without sliding scale to trend her blood glucose for now-well controlled HLD: continue statin FEN: No IVF patient is fluid overloaded no electrolyte issues at this time will continue to trend them low fat low sodium diet PPx: Hep gtt/SCDs No GI PPx indiacted as no major or minor criteria met Patient is ambulating no PT consult at this time will evaluate the need for physical therapy on a daily basis Minutes to complete discharge: 45 Discharge Summary Reason For Visit: CHEST PAIN, DYSPENA, EDEMA LEG Current Active Problems TOBIAS (acute kidney injury) (Acute) Aortic valve calcification (Acute) Aortic valve disorder (Acute) Aortic valve stenosis (Acute) Aortic valve stenosis determined by imaging (Acute) Atypical chest pain (Acute) Chest pain (Acute) Congestive heart disease (Acute) Dyspnea (Acute) Edema leg (Acute) NSTEMI (non-ST elevated myocardial infarction) (Acute) H/O aortic valve replacement with tissue graft (Chronic) Condition: Guarded - Instructions Diet, Activity, Other Instructions: eat a low sodium low fat diet follow up with me in the office after your discharge from [facility] i see patients every from - at [address] please call continue all medications for now good luck Referrals: Ludwig Hammonds MD [Primary Care Provider] - Walter Choi MD [Staff Physician] - Disposition: TRANSFER ACUTE CARE/OTHER HOSP - Home Medications Comprehensive Discharge Medication List: Ambulatory Orders Meloxicam [Mobic] 15 mg PO DAILY 01/06/17 Simvastatin [Zocor -] 40 mg PO DAILY 01/06/17 Aspirin Coated [Ecotrin -] 81 mg PO DAILY 01/09/17 Ferrous Sulfate [Feosol] 325 mg PO DAILY 01/09/17 Heparin - 1,000 unit IVPUSH PRN PRN #0 vial 01/09/17 Heparin - 5,000 unit IVPUSH PRN PRN #0 vial 01/09/17 Heparin - 25,000 unit IV TITR vial 01/09/17 Metoprolol Succinate [Toprol XL -] 25 mg PO BID 01/09/17 This patient is new to me today: No Emergency Visit: Yes ED Registration Date: 01/06/17 Care time: The patient presented to the Emergency Department on the above date and was hospitalized for further evaluation of their emergent condition. Critical Care patient: No - Discharge Referral Referred to [facility] Med P.C.: No
--- NOTE | 2017-01-09 16:05 | PN ---
Teaching Attending Note Name of Resident: Darrell Guillermo ATTENDING PHYSICIAN STATEMENT I saw and evaluated the patient. I reviewed the resident's note and discussed the case with the resident. I agree with the resident's findings and plan as documented. SUBJECTIVE: no fever or chills, no abd pain. Feels better today , and has no SOB when walking OBJECTIVE: NAD CV: RRR, 3/6 SM At base with radiation to carotids. Lungs : decreased breath sounds at bases and minimal bibasialr crackles Ext: no edema ASSESSMENT AND PLAN: 81 y/o lady withh/o Chronic Diastolic CHF , HTN, s/p bioprosthetic AVR, who presented with CP and SOB , she was found to have acute CHF exacerbation 1- Acute on chronic diastolic CHF . - give IV lasix again today - cont toprol 2- s/p bio-prosthetic AVR : now with re-stenosis. this needs to be re- evaluated. plan for MICHELLE and cath at [facility] . 3- Trop leak : probably demand ischemia due to CHF . trop trended down 4- TOBIAS : due to hepato-renal syndrome. stable Cr for now 5- HTN: BB dispo :Accepted fro transfer to [facility] , pending bed availability.
[2017-01-09 19:32] VITALS: BP 104/40; PULSE 62; TEMP 98.6
[2017-01-09] MEDS: ATORVASTATIN CA 80 MG TABLET (FP) PO SCH (21:13)
== END 2017-01-09 21:10 | disposition short-term general hospital (02) | DRG 280 ==
LOC: JER 20:11 → JERBED 22:34 → J4S 01-07 14:42
PROVIDERS: ADMIT Internal Medicine; ATTEND Internal Medicine
DX: I21.4 Non-ST elevation (NSTEMI) myocardial infarction (principal); I50.33 Acute on chronic diastolic (congestive) heart failure; N17.9 Acute kidney failure, unspecified; I35.0 Nonrheumatic aortic (valve) stenosis; D50.9 Iron deficiency anemia, unspecified; E11.9 Type 2 diabetes mellitus without complications; E78.5 Hyperlipidemia, unspecified; R07.89 Other chest pain; E87.70 Fluid overload, unspecified; I11.0 Hypertensive heart disease with heart failure
CPT/HCPCS: 36415; 71010-TC; 71020-TC; 76775-TC; 76856-TC; 80048; 80053; 80061; 81003; 82272; 82436; 82550; 82570; 82728; 83036; 83540; 83550; 83721; 83735; 83880; 84100; 84133; 84300; 84466; 84484; 84540; 85025; 85027; 85379; 85610; 85730; 93005; 93010; 93306-TC; 93975; 99285-25; J1644

== ENCOUNTER 2017-11-25 11:14 | Emergency (ER) | payer BC, OTHER ==
[2017-11-25 11:21] VITALS: PULSE 65; TEMP 97.6; BMI 32.1
--- NOTE | 2017-11-25 11:39 | PDOC ---
History of Present Illness - General Chief Complaint: Shortness of Breath Stated Complaint: CHEST PAIN, COUGH Time Seen by Provider: 11/25/17 11:38 - History of Present Illness Initial Comments: 11/25/17 11:41 82 yo F with h/o HTN, HLD, CAD/MT, Aortic Stenosis s/p valve replacement (2012 and 12/2016 ) who presents with cough. Patient reports increased clear sputum cough production for the past 1 1/2 week with substernal and pleuritic chest pain. Chest pain described as congestion and pressure, with no radiation. Cough treatment with robitussin and mucinex with little relief. No home O2 requirements or duoneb use. Denies F/C, N/V, hemoptysis, palpitations, SOB, wheezing, lightheadedness, LOC, weakness. Denies h/o tobacco use. No h/o copd/ asthma. Does not recall last stress test. Dr. Lindsey chief green officer. Past History - Past Medical History Allergies/Adverse Reactions: Allergies Allergy/AdvReac Type Severity Reaction Status Date / Time No Known Allergies Allergy Verified 11/25/17 11:17 Home Medications: Ambulatory Orders Simvastatin [Zocor -] 40 mg PO DAILY 01/06/17 Aspirin Coated [Ecotrin -] 81 mg PO DAILY 01/09/17 Ferrous Sulfate [Feosol] 325 mg PO DAILY 01/09/17 Metoprolol Succinate [Toprol XL -] 25 mg PO BID 01/09/17 Amlodipine Besylate [Norvasc -] 5 mg PO DAILY 11/25/17 Calcitriol [Rocaltrol -] 0.25 mcg PO DAILY 11/25/17 Levothyroxine [Synthroid -] 25 mcg PO DAILY 11/25/17 Metformin HCl [Metformin HCl ER] 500 mg PO DAILY 11/25/17 Ramipril 5 mg PO DAILY 11/25/17 Cardiac Disorders: Yes (CAD) COPD: No Diabetes: Yes HTN: Yes Hypercholesterolemia: Yes - Surgical History Cardiac Surgery: Yes (VALVE REPLACMENT X 2) Orthopedic Surgery: Yes (Rt Knee replacement) - Immunization History Immunization Up to Date: No - Suicide/Smoking/Psychosocial Hx Smoking Status: No Smoking History: Never smoked Have you smoked in the past 12 months: No Number of Cigarettes Smoked Daily: 0 Information on smoking cessation initiated: No Hx Alcohol Use: No Drug/Substance Use Hx: No Substance Use Type: None Hx Substance Use Treatment: No Review of Systems - Review of Systems Comments:: 11/25/17 11:38 GENERAL/CONSTITUTIONAL: No fever or chills. No weakness. HEAD, EYES, EARS, NOSE AND THROAT: No change in vision. No ear pain or discharge. No sore throat.- CARDIOVASCULAR: +chest pain. no shortness of breath RESPIRATORY: + cough. No wheezing, or hemoptysis. GASTROINTESTINAL: No nausea, vomiting, diarrhea or constipation. GENITOURINARY: No dysuria, frequency, or change in urination. MUSCULOSKELETAL: No joint or muscle swelling or pain. No neck or back pain. SKIN: No rash NEUROLOGIC: No headache, vertigo, loss of consciousness, or change in strength/ sensation. ENDOCRINE: No increased thirst. No abnormal weight change HEMATOLOGIC/LYMPHATIC: No anemia, easy bleeding, or history of blood clots. ALLERGIC/IMMUNOLOGIC: No hives or skin allergy. *Physical Exam - Vital Signs Last Vital Signs Temp Pulse Resp BP Pulse Ox 97.6 F 65 18 139/59 100 11/25/17 11:18 11/25/17 11:18 11/25/17 11:18 11/25/17 11:18 11/25/17 11:18 - Physical Exam Comments: 11/25/17 11:39 GENERAL: Awake, alert, and fully oriented, in no acute distress HEAD: No signs of trauma, normocephalic, atraumatic EYES: PERRLA, EOMI, sclera anicteric, conjunctiva clear ENT:Hearing grossly normal, nares patent, oropharynx clear without exudates. Moist mucosa NECK: Normal ROM, supple, no lymphadenopathy, JVD, or masses LUNGS: No distress, speaks full sentences, clear to auscultation bilaterally HEART: Regular rate and rhythm, normal S1 and S2, no murmurs, rubs or gallops, peripheral pulses normal and equal bilaterally. EXTREMITIES : LLE >RLE minimal non pitting edema.Normal inspection, Normal range of motion. No clubbing or cyanosis. SKIN: Warm, Dry, normal turgor, no rashes or lesions noted. Heart Score/ECG Review - History History: Slightly suspicious - Electrocardiogram EKG: Non specific repolarization disturbance - Age Age: >/= 65 - Risk Factors Risk Factors Heart Score: Yes Hx Hypercholesterolemia, Yes Hx Hypertension, Yes Positive family hx of cardiac disease Based on the list above the patient has:: >/=3 risk factors or Hx atherosclerotic disease - Troponin Troponin: </= normal limit - Score Heart Score - Total: 5 - ECG Intrepretation Rhythm: Regularly Irregular - Bryce Bryce: Normal ED Treatment Course - LABORATORY CBC & Chemistry Diagram: 11/25/17 12:20 11/25/17 12:20 Medical Decision Making - Medical Decision Making 11/25/17 12:10 82 yo F with h/o HTN, HLD, CHF CAD/MT, Aortic Stenosis s/p valve replacement ( 2012 and 12/2016 ) who with 1 1/2 week of clear productive sputum cough,and non radiating, substernal and pleuritic chest pain. Denies F/C, N/V, hemoptysis, palpitations, SOB, wheezing, lightheadedness, LOC, weakness. Denies h/o tobacco use. No h/o copd/asthma. Does not recall last stress test. Dr. Lindsey chief green officer. Physical exam unremarkable. hemodynamically stable. Patient s/s most likely 2/2 URI vs. influenza. Will also consider PNA, and acute CHF. R/o ACS/MT. Potenital bronchitis. DDx: URI, Influenza, PNA, ACS ED Course: CBC, CMP, Cardiac Pr, BNP, PT/INR UA EKG, CXR 11/25/17 13:23 EKG: RBBB. Normal interval duration. Absent KASI, STD, or TWI. CBC: Unremarkable CMP: Unremarkable CXR: No acute lung dz. Trop: Neg BNP: 3510.42 11/25/17 13:26 Elevated heart score 5 with 13 % risk MACE. 11/25/17 13:30 Microblogged symphony for obs admission. 11/25/17 13:[address] López tele/obs. *DC/Admit/Observation/Transfer Diagnosis at time of Disposition: Atypical chest pain - Discharge Dispostion Admit: Yes - Referrals Referrals: Vinny Wagner [Primary Care Provider] - - Patient Instructions - Post Discharge Activity
[2017-11-25 12:24] LABS: BASO % 0.8 % (0-2.0); EOS % 4.2 % (0-4.5); HEMATOCRIT 40.2 % (32.4-45.2); HEMOGLOBIN 12.5 GM/dL (10.7-15.3); LYMPH % 16.1 % (8-40); MCH 25.9 pg (25.7-33.7); MCHC 31.1 g/dl (32.0-36.0); MEAN CELL VOLUME 83.2 fl (80-96); NEUT % 70.9 % (42.8-82.8); PLATELET COUNT 243 K/MM3 (134-434); RBC 4.83 M/mm3 (3.60-5.2); RDW 17.4 % (11.6-15.6); WHITE BLOOD COUNT 8.7 K/mm3 (4.0-10.0)
[2017-11-25 12:49] LABS: INR 1.09 (0.82-1.09); PROTHROMBIN TIME (PATIENT) 12.3 SEC (9.98-11.88)
[2017-11-25 13:01] LABS: ALBUMIN 3.3 g/dl (3.4-5.0); ANION GAP 6 (8-16); BLOOD UREA NITROGEN 18 mg/dL (7-18); CALCIUM 9.1 mg/dL (8.5-10.1); CHLORIDE 106 mmol/L (98-107); CO2 29 mmol/L (21-32); GLUCOSE,RANDOM 86 mg/dL (74-106); SGPT/ALT 19 U/L (12-78); SODIUM 141 mmol/L (136-145)
[2017-11-25 13:02] LABS: ALK PHOS 129 U/L (45-117); BILIRUBIN,TOTAL 0.4 mg/dL (0.2-1.0); TOT PROT 6.2 g/dl (6.4-8.2)
[2017-11-25 13:02] LABS: N-TERMINAL BNP 3510.42 pg/ml (5-450)
[2017-11-25 13:04] LABS: POTASSIUM 5.1 mmol/L (3.5-5.1); SGOT/AST 19 U/L (15-37)
--- NOTE | 2017-11-25 13:21 | PDOC ---
Attending Attestation - Resident Resident Name: Ghanshyam Esquivel - ED Attending Attestation I have performed the following: I have examined & evaluated the patient, The case was reviewed & discussed with the resident, I agree w/resident's findings & plan, Exceptions are as noted <Rebecca Camejo - Last Filed: 11/25/17 13:21> - HPI HPI: 11/25/17 13:56 The patient is a 82 year old female, with a significant past medical history of CAD s/p UT, Aortic Stenosis s/p Aortic Valve Replacement, HTN and HLD who presents to the emergency department with cough for the past week. Patient reports productive cough (clear sputum) associated with chest congestion and chest pain. Patient attempted OTC medications for cough however denies any relief and presents to the ED for further evaluation. Patient denies any fever/ chills Allergies: NKA Past surgical history: Valve replacement x2, Hysterectomy Social history: None PCP: Dr. Wagner - Medical Decision Making 11/25/17 13:56 Documentation prepared by Delia Spence, acting as director medical affairs for Rebecca Camejo MD <Delia Spence - Last Filed: 11/25/17 14:28>
[2017-11-25] MEDS ORDERED: cefTRIAXone 2 GM/100 ML BAG (PRE-DOCKED) IVPB ONE (13:34)
[2017-11-25] MEDS ORDERED: CEFTRIAXONE 2 GM/100 ML BAG IVPB ONE (14:06)
[2017-11-25 15:21] VITALS: BP 126/55
--- NOTE | 2017-11-25 17:38 | EKG ---
Test Reason : Blood Pressure : / mmHG Vent. Rate : 062 BPM Atrial Rate : 375 BPM P-R Int : 000 ms QRS Dur : 138 ms QT Int : 414 ms P-R-T Axes : 000 -15 -13 degrees QTc Int : 420 ms ATRIAL FIBRILLATION RIGHT BUNDLE BRANCH BLOCK ABNORMAL ECG WHEN COMPARED WITH ECG OF 06-JAN-2017 21:26, ATRIAL FIBRILLATION HAS REPLACED SINUS RHYTHM T WAVE VARIATION Confirmed by BINH ANDERSON MD ([id number]) on 11/25/2017 5:37:31 PM Referred By: Confirmed By:BINH ANDERSON MD
== END 2017-11-25 15:26 | disposition home or self-care (01) ==
LOC: JER 11:14 → UNDOADMOB 13:38 → JERBED 13:38
DX: J40 Bronchitis, not specified as acute or chronic (principal); R07.89 Other chest pain; I25.10 Atherosclerotic heart disease of native coronary artery without angina pectoris; I10 Essential (primary) hypertension; E78.00 Pure hypercholesterolemia, unspecified; E11.9 Type 2 diabetes mellitus without complications; Z79.84 Long term (current) use of oral hypoglycemic drugs; Z95.2 Presence of prosthetic heart valve
CPT/HCPCS: 36415; 71045-TC; 80053; 82550; 83880; 84484; 85025; 85610; 93005; 93010; 96374; 99283-25

== ENCOUNTER → 2018-11-26 | Day surgery (SDC) | payer OTHER, BC ==
[2018-11-24 09:49] VITALS: BMI 34.0
[~2018-11-26] MED LIST: BUPIVACAINE HCL/PF 0.5% (5MG/ML) 10 ML VIAL IJ ONE; BUPIVACAINE HCL/PF 0.5% (5MG/ML) 10 ML VIAL ONE; LACTATED RINGERS SOLUTION 1,000 ML IV SCH; LIDOCAINE HCL 1%, 10 MG/ML (20ML VIAL) ONE; LIDOCAINE HCL 1%, 10 MG/ML (20ML VIAL) PNB ONE; MIDAZOLAM HCL 2 MG/2 ML SINGLE DOSE VIAL ONE; ONDANSETRON 4 MG/2 ML VIAL IVPUSH PRN; PROPOFOL 20 ML ONE; ceFAZolin SODIUM 1 GM VIAL IVPB ONE; oxyCODONE HCL 5 MG TABLET PO PRN
--- NOTE | 2018-11-26 09:15 | HP ---
Satellite [facility] - Chief Complaint Chief Complaint: right cts - Past Medical History Allergies/Adverse Reactions: Allergies Allergy/AdvReac Type Severity Reaction Status Date / Time No Known Allergies Allergy Verified 11/24/18 13:49 Cardiovascular: Yes: Aortic Stenosis, CHF, HTN, Hyperlipdemia Endocrine: Yes: Diabetes Mellitus - Current Medications Current Medications: Home Medications Medication Instructions Recorded Simvastatin [Zocor -] 40 mg PO DAILY 01/06/17 Aspirin Coated [Ecotrin -] 81 mg PO DAILY 01/09/17 Ferrous Sulfate [Feosol] 325 mg PO DAILY 01/09/17 Amlodipine Besylate [Norvasc -] 5 mg PO DAILY 11/25/17 Calcitriol [Calcitriol -] 0.25 mcg PO DAILY 11/25/17 Ramipril 5 mg PO DAILY 11/25/17 metFORMIN HCL [Metformin ER 500 mg PO DAILY 11/25/17 Osmotic] Levothyroxine [Synthroid -] 25 mcg PO DAILY 11/24/18 Meloxicam 15 mg PO DAILY 11/24/18 Metoprolol Succinate [Toprol XL -] 25 mg PO DAILY 11/24/18 Oxycodone HCl/Acetaminophen 1 tab PO Q6H #20 tablet MDD 4 11/26/18 [Percocet 5-325 mg Tablet] Satellite Physical Exam - Physical Examination General Appearance: Well Nourished, Well Developed, Alert & Oriented x3 ENT: Clear Lung: Normal air movement Heart: Regular rate & rhythm Extremities: Other (right hand- + tinels, + phalens, EMG + cts) Neurological: Intact, Alert, Oriented Satellite Impression/Plan - Impression/Plan Impression: right cts Operative Procedure: right ctr Date to be Performed: 11/26/18
[2018-11-26 12:04] LABS: URINE APPEARANCE CLOUDY; URINE BILIRUBIN NEGATIVE (<2.0 mg/dL); URINE COLOR LTYELLOW; URINE GLUCOSE (UA) NEGATIVE (NEGATIVE); URINE KETONE NEGATIVE (NEGATIVE); URINE LEUK ESTERASE NEGATIVE (NEGATIVE); URINE NITRITE NEGATIVE (NEGATIVE); URINE PROTEIN NEGATIVE (NEGATIVE); URINE UROBILINOGEN NEGATIVE mg/dL (0.2-1.0)
[2018-11-26 12:16] LABS: INR 1.07 (0.83-1.09); PROTHROMBIN TIME (PATIENT) 12.6 SEC (9.7-13.0)
[2018-11-26 12:19] LABS: ACTIVATED PTT 34.5 SECONDS (25.2-36.5)
--- NOTE | 2018-11-26 15:56 | OP ---
Operative Note - Note: Operative Date: 11/26/18 Pre-Operative Diagnosis: right CTS Operation: right CTR Post-Operative Diagnosis: Same as Pre-op Surgeon: Lui Valencia Anesthesiologist/COMMERCIAL DRIVER: Jimbo Basilio Anesthesia: Local, MAC Specimens Removed: tenosynovium Estimated Blood Loss (mls): 0 Drains, Volume Out (mls): 0 Fluid Volume Replaced (mls): 700 Operative Report Dictated: Yes
--- NOTE | 2018-11-26 16:13 | OP ---
DATE OF OPERATION: 11/26/2018 PREOPERATIVE DIAGNOSIS: Right carpal tunnel syndrome. POSTOPERATIVE DIAGNOSIS: Right carpal tunnel syndrome. PROCEDURE: Right carpal tunnel release and synovectomy. SURGEON: Shen Gomez M.D. RIGHT OF WAY AGENT: None COMMERCIAL PLUMBER: Jimbo Basilio CRNA DRAINS: None. COMPLICATIONS: None. SPECIMENS: Tenosynovium right wrist. BLOOD LOSS: Minimal. BLOOD GIVEN: None. FLUID REPLACEMENT: . INDICATIONS: After understanding the potential risks, complications, alternatives and benefits of surgery versus nonsurgical treatment, the patient elected to undergo this procedure. DESCRIPTION OF PROCEDURE: The patient was brought to the operating room, peripheral IV placed and intravenous sedation was given. One gram of intravenous Ancef was given. MAC anesthesia was induced. A tourniquet was applied to the right upper arm and the right upper extremity was prepped and draped in sterile fashion. The entire case was done under 3.8 loupe magnification. A marking pen was utilized to scott out a longitudinal incision in an already existing skin crease. Twenty mL of 0.5% Marcaine mixed with 1% Lidocaine was injected in and around the surgical incision. The right upper extremity was elevated, exsanguinated with an Esmarch bandage and the tourniquet inflated to 250 mmHg. A No. 15 scalpel blade was utilized to cut down through the skin. Subcutaneous hemostasis was achieved with the bipolar cautery. Dissection was done through the superficial palmar fascia. Self-retaining retractors were placed into the wound. Under direct visualization, the transverse carpal ligament was transected with a No. 15 scalpel blade, exposing the median nerve and the contents of the carpal tunnel. The distal and proximal extents of the release were completed with a Littler scissor and checked with irrigation and my small finger. They were seen to be complete. Limited dissection was done on the radial side of the median nerve and more extensive dissection was done on the ulnar side of the median nerve. The patients nerve was seen to be quite compressed by epineurium and therefore a limited epineurotomy was performed. A Ragnell retractor was used to gently retract the median nerve in a radial direction. The patient had a lot of tenosynovitis and therefore a tenosynovectomy was performed off all 9 flexor tendons. This was passed off the field as tenosynovium right wrist. The floor of the carpal tunnel was checked. There were no abnormal masses or ganglion cysts. The area was copiously irrigated and washed out and closure begun. Undyed 4-0 Vicryl was used to close the deep dermal layer. Final skin reapproximation was done with horizontal mattress 4-0 nylon sutures. The area was then washed and dried, covered with Xeroform, 4x4s, fluffs between the fingers, Webril and a 4-inch plaster roll was utilized to make a volar splint, which was then wrapped with Aurelia and Coban. The tourniquet was taken down after a total tourniquet time of 18 minutes. There were no complications during the case. The patient tolerated the procedure well and was brought to the ambulatory recovery room in stable condition. SHEN GOMEZ M.D. [id number]
[2018-11-26 17:14] VITALS: TEMP 97.7
[2018-11-26 17:41] VITALS: BP 138/87; PULSE 69
--- NOTE | 2018-11-28 16:14 | PATH ---
Surgical Pathology Report Patient Name: NELSON MUNIZ [facility]. Rec. #: [id number] /Age/Gender: 1935 (Age: 83) / F Account: [id number] Location: [facility] SUR[facility]ICAL Taken: 11/26/2018 Received: 11/27/2018 Reported: 11/28/2018 Physicians: Lui Valencia M.D. Specimen(s) Received RIGHT TENOSYNOVIUM Clinical History Carpal tunnel right Final Diagnosis TENOSYNOVIUM, RIGHT, CARPAL TUNNEL RELEASE: BENIGN DENSE FIBROCONNECTIVE TISSUE. Electronically Signed Yazmin Olvera M.D. Gross Description Received in formalin labeled "right tenosynovium," is a 2.3 x 2.0 x 0.3 cm aggregate of muse-yellow, irregular portions of soft tissue, consistent with tenosynovium. The specimen is entirely submitted in one cassette. 11/27/201811/27/2018
== END | disposition home or self-care (01) ==
LOC: JASU-SURG 11:37
PROVIDERS: ATTEND Orthopaedic Surgery
PROC: 01N50ZZ Release Median Nerve, Open Approach (ICD-10-PCS; principal; 2018-11-26 13:30)
DX: G56.01 Carpal tunnel syndrome, right upper limb (principal)
CPT/HCPCS: 36415; 81003; 82962; 85610; 85730; 88304-TC; 94760

== ENCOUNTER 2020-06-14 12:37 | Emergency (ER) | payer OTHER, BC ==
[2020-06-14 12:43] VITALS: TEMP 97.8; BMI 37.8
--- NOTE | 2020-06-14 12:43 | PDOC ---
Rapid Medical Evaluation Time Seen by Provider: 06/14/20 12:39 Medical Evaluation: Allergies Allergy/AdvReac Type Severity Reaction Status Date / Time No Known Allergies Allergy Verified 06/14/20 12:39 06/14/20 12:40 HPI: 84 year old female pmhx of CABG, Aortic valve replacement (on Warfarin) HTN, DM, HLD, Hx of clots, complaining of cough SOB PE: RRR CTA A/P: Labs EKG Pt to precede to ED for further eval and treatment
--- NOTE | 2020-06-14 15:10 | PDOC ---
History of Present Illness - General Chief Complaint: Shortness of Breath Stated Complaint: COUGH/ SOB Time Seen by Provider: 06/14/20 12:39 - History of Present Illness Initial Comments: 06/14/20 15:10 84 year old female pmhx of CABG, Aortic valve replacement (on Warfarin) HTN, DM, HLD, Hx of clots, presents with one day of cough. Daughter brought her in because she was concerned. Pt was in public yesterday and began having cough productive of mucoid sputum. Cough improved this morning after OTC cough/mucous suppressant. Also complains of four months of dyspnea on exertion after one block with previously much better exercise tolerance. Denies othopnea or paroxysmal dyspnea. Also complains of constipation for one month, last BM yesterday. ROS otherwise negative. PMH/PSH: as above Meds: see home meds Allergies: none ROS GENERAL/CONSTITUTIONAL: No fever or chills. No weakness. HEAD, EYES, EARS, NOSE AND THROAT: No change in vision. No ear pain or discharge. No sore throat. CARDIOVASCULAR: No chest pain or shortness of breath RESPIRATORY: No cough, wheezing, or hemoptysis. GASTROINTESTINAL: No nausea, vomiting, diarrhea or constipation. GENITOURINARY: No dysuria, frequency, or change in urination. MUSCULOSKELETAL: No joint or muscle swelling or pain. No neck or back pain. SKIN: No rash NEUROLOGIC: No headache, vertigo, loss of consciousness, or change in strength/sensation. ENDOCRINE: No increased thirst. No abnormal weight change HEMATOLOGIC/LYMPHATIC: No anemia, easy bleeding, or history of blood clots. ALLERGIC/IMMUNOLOGIC: No hives or skin allergy. PE GENERAL: Awake, alert, and fully oriented, in no acute distress HEAD: No signs of trauma, normocephalic, atraumatic EYES: PERRLA, EOMI, sclera anicteric, conjunctiva clear ENT: Auricles normal inspection, hearing grossly normal, nares patent, or opharynx clear without exudates. Moist mucosa NECK: Normal ROM, supple, no lymphadenopathy, JVD, or masses LUNGS: No distress, speaks full sentences, clear to auscultation bilaterally HEART: irregularly irregular, normal rate, no murmurs. peripheral pulses normal and equal bilaterally. ABDOMEN: Soft, nontender, normoactive bowel sounds. No guarding, no rebound. No masses EXTREMITIES : Normal inspection, Normal range of motion. 1+ b/l LE edema to knees. No clubbing or cyanosis. NEUROLOGICAL: Cranial nerves II through XII grossly intact. Normal speech, no focal sensorimotor deficits SKIN: Warm, Dry, normal turgor, no rashes or lesions noted Vital Signs Temp Pulse Resp BP Pulse Ox 97.8 F 65 20 121/48 L 100 06/14/20 12:40 06/14/20 12:40 06/14/20 12:40 06/14/20 12:40 06/14/20 12:40 MDM: 84 year old female with extensive PMH presenting with one day of cough and 4 months of GARCIA. Physical exam notable for 1+ b/l LE edema. Differential includes CHF, pulmonary HTN, URI, pneumonia, Covid, deconditioning. Last ECHO in 2018 showed normal EF, but moderate pulmonary HTN. -EKG -CXR -CBC, CMP, coags, trops, UA/UC ED attending Dr. Camejo spoke with patient's doctor who said he put her on lasix, but that she did not follow up with cardiology. Will order for 40 IV lasix, and send home with close PCP and cardiology f/u. EKG: a-fib, rate 66, normal axis, RBBB, QTc 480, no ischemic changes CXR: no acute findings, not volume overloaded labs: no acute abnormalities. Baseline abnormalities as seen in labs below Past History - Medical History Allergies/Adverse Reactions: Allergies Allergy/AdvReac Type Severity Reaction Status Date / Time No Known Allergies Allergy Verified 06/14/20 12:39 Home Medications: Ambulatory Orders Simvastatin [Zocor -] 40 mg PO DAILY 01/06/17 Aspirin Coated [Ecotrin -] 81 mg PO DAILY 01/09/17 Amlodipine Besylate [Norvasc -] 5 mg PO DAILY 11/25/17 Calcitriol [Calcitriol -] 0.25 mcg PO DAILY 11/25/17 Ramipril 5 mg PO DAILY 11/25/17 metFORMIN HCL [Metformin ER Osmotic] 500 mg PO DAILY 11/25/17 Levothyroxine [Synthroid -] 100 mcg PO DAILY 11/24/18 Metoprolol Succinate [Toprol XL -] 25 mg PO BID 11/24/18 Anemia: No Asthma: No Cancer: No Cardiac Disorders: Yes (CAD, "heartbeat problem", valve replaced x2) CVA: No COPD: No CHF: No Dementia: No Diabetes: Yes GI Disorders: No Disorders: No HTN: Yes Hypercholesterolemia: Yes Liver Disease: No Seizures: No Thyroid Disease: No - Surgical History Cardiac Surgery: Yes (VALVE REPLACMENT X 2) Orthopedic Surgery: Yes (Rt Knee replacement) - Immunization History Immunization Up to Date: No - Psycho-Social/Smoking History Smoking Status: No Smoking History: Never smoked Have you smoked in the past 12 months: No Number of Cigarettes Smoked Daily: 0 - Substance Abuse Hx (Audit-C & DAST Scrn) How often the patient has a drink containing alcohol: Never Score: In Men: 4 or > Positive; In Women: 3 or > Positive: 0 Screen Result (Pos requires Nsg. Audit-10AR): Negative In the last yr the pt used illegal drug/Rx for NonMed reason: No Score: Yes response is considered Positive: 0 Screen Result (Positive result requires Nsg. DAST-10): Negative *Physical Exam - Vital Signs Last Vital Signs Temp Pulse Resp BP Pulse Ox 97.8 F 65 20 121/48 L 100 06/14/20 12:40 06/14/20 12:40 06/14/20 12:40 06/14/20 12:40 06/14/20 12:40 ED Treatment Course - LABORATORY CBC & Chemistry Diagram: 06/14/20 14:05 06/14/20 14:05 Discharge - Discharge Information Problems reviewed: Yes Clinical Impression/Diagnosis: Edema leg Dyspnea Qualifiers: Dyspnea type: unspecified Qualified Code(s): R06.00 - Dyspnea, unspecified Congestive heart disease Qualifiers: Heart failure type: unspecified Heart failure chronicity: unspecified Qualified Code(s): I50.9 - Heart failure, unspecified Condition: Good Disposition: HOME - Admission No - Follow up/Referral Referrals: Vinny Wagner [Primary Care Provider] - Walter Choi MD [Staff Physician] - - Patient Discharge Instructions Additional Instructions: You were seen in the ER for cough and shortness of breath. We did a physical exam, EKG, chest x-ray, and labs, which did not show anything acute. We think your symptoms are likely caused by your underlying heart disease, but we do not have a definitive explanation. We gave you 40mg of IV Lasix to get some of the fluid out of your legs and hopefully out of your lungs as well, with the goal of improving your symptoms. Please follow up with your primary doctor and fund manager as soon as possible. Please return to the ER if you have continued or worsening symptoms, difficulty breathing, fever, chills, chest pain, or any other reason. - Post Discharge Activity
[2020-06-14 15:20] LABS: BASO % 0.8 % (0-2.0); EOS % 4.6 % (0-4.5); HEMATOCRIT 37.1 % (32.4-45.2); HEMOGLOBIN 11.8 GM/dL (10.7-15.3); LYMPH % 14.9 % (8-40); MCH 25.4 pg (25.7-33.7); MCHC 31.9 g/dl (32.0-36.0); MEAN CELL VOLUME 79.8 fl (80-96); MEAN PLT VOLUME 10.1 fl (7.5-11.1); MONO % 9.9 % (3.8-10.2); NEUT % 69.8 % (42.8-82.8); PLATELET COUNT 220 K/MM3 (134-434); RBC 4.65 M/mm3 (3.60-5.2); RDW 19.5 % (11.6-15.6); WHITE BLOOD COUNT 8.6 K/mm3 (4.0-10.0)
[2020-06-14 15:23] LABS: INR 2.29 (0.83-1.09); PROTHROMBIN TIME (PATIENT) 27.3 SEC (9.7-13.0)
--- NOTE | 2020-06-14 15:39 | PDOC ---
Documentation entered by Marco A Chandler SCRIBE, acting as scribe for Rebecca Camejo MD. Rebecca Camejo MD: This documentation has been prepared by the mitulibe, Marco A Chandler SCRIBE, under my direction and personally reviewed by me in its entirety. I confirm that the documentation accurately reflects all work, treatment, procedures, and medical decision making performed by me. Attending Attestation - Resident Resident Name: Cornelio Yang - ED Attending Attestation I have performed the following: I have examined & evaluated the patient, The case was reviewed & discussed with the resident, I agree w/resident's findings & plan, Exceptions are as noted - HPI HPI: 06/14/20 15:13 The patient is an 84 year old female with a significant past medical history of CAD s/p HI, DM, Aortic Stenosis s/p Aortic Valve Replacement, HTN and HLD who presents to the emergency department for evaluation of a productive cough of thick white sputum that began yesterday. The patient reports this cough has improved since last night but has not resolved. She endorses four months of shortness of breath on exertion and one month of constipation. Per patients daughter at bedside,she is concerned about COVID and the patient appears more weak recently. Allergies: NKA Past surgical history: Valve replacement x2, Hysterectomy Social history: None PCP: Dr. Wagner - Physicial Exam PE: 06/14/20 14:43 GENERAL: Awake, alert, and fully oriented, in no acute distress HEAD: No signs of trauma EYES: PERRLA, EOMI, sclera anicteric, conjunctiva clear ENT: Auricles normal inspection, hearing grossly normal, nares patent, oropharynx clear without exudates. Moist mucosa NECK: Normal ROM, supple, no lymphadenopathy, JVD, or masses LUNGS: +Fine crackles correction up B/L. Lung sounds higher pitched on L side compared with R. HEART: Regular rate and rhythm, normal S1 and S2, no murmurs, rubs or gallops ABDOMEN: Soft, nontender, normoactive bowel sounds. No guarding, no rebound. No masses EXTREMITIES: Normal range of motion, 1+ pitting edema to the knees B/L. No clubbing or cyanosis. No cords, erythema, or tenderness NEUROLOGICAL: Cranial nerves II through XII grossly intact. Normal speech. No sensorimotor deficit SKIN: Warm, Dry, normal turgor, no rashes or lesions noted. - Medical Decision Making 06/14/20 15:58 Case d/w patient's primary Dr. Wagner via phone. She has history of afib on coumadin, last seen in the office 1.5 months ago. Was recently placed on lasix for fluid overload. Unclear if she is taking it consistently. Also unclear if she is regularly following up with a risk compliance manager after her valve replacement 3 years ago. Await CMP in ED. If no significant abnormality, will give lasix 40 mg IV and have her f/u with Dr. Wagner either tomorrow morning or (he states that either is acceptable). Discharge - Discharge Information Problems reviewed: Yes Clinical Impression/Diagnosis: Edema leg Dyspnea Qualifiers: Dyspnea type: unspecified Qualified Code(s): R06.00 - Dyspnea, unspecified Congestive heart disease Qualifiers: Heart failure type: unspecified Heart failure chronicity: unspecified Qualified Code(s): I50.9 - Heart failure, unspecified Condition: Stable - Follow up/Referral Referrals: Vinny Wagner [Primary Care Provider] - - Patient Discharge Instructions - Post Discharge Activity
[2020-06-14 15:43] LABS: URINE APPEARANCE CLEAR; URINE BILIRUBIN NEGATIVE (NEGATIVE); URINE COLOR YELLOW; URINE GLUCOSE (UA) NEGATIVE (NEGATIVE); URINE KETONE NEGATIVE (NEGATIVE); URINE LEUK ESTERASE NEGATIVE (NEGATIVE); URINE NITRITE NEGATIVE (NEGATIVE); URINE PROTEIN NEGATIVE (NEGATIVE); URINE UROBILINOGEN 0.2 mg/dL (0.2-1.0)
[2020-06-14 15:56] LABS: ALBUMIN 3.4 g/dl (3.4-5.0); ALK PHOS 126 U/L (45-117); ANION GAP 10 MMOL/L (8-16); BILIRUBIN,TOTAL 0.4 mg/dL (0.2-1); BLOOD UREA NITROGEN 22.8 mg/dL (7-18); CALCIUM 8.9 mg/dL (8.5-10.1); CHLORIDE 107 mmol/L (98-107); CO2 25 mmol/L (21-32); CREATININE 1.4 mg/dL (0.55-1.3); GLUCOSE,RANDOM 85 mg/dL (74-106); N-TERMINAL BNP 2183.8 pg/ml (5-450); POTASSIUM 4.7 mmol/L (3.5-5.1); SGOT/AST 18 U/L (15-37); SGPT/ALT 14 U/L (13-61); SODIUM 143 mmol/L (136-145); TOT PROT 6.2 g/dl (6.4-8.2)
[2020-06-14] MEDS ORDERED: FUROSEMIDE 40 MG/4 ML INJECTABLE VIAL IVPUSH ONE (15:57)
[2020-06-14] MEDS ORDERED: FUROSEMIDE 40 MG/4 ML INJECTABLE VIAL ONE (16:11)
[2020-06-14 16:22] VITALS: BP 121/54; PULSE 77
--- NOTE | 2020-06-15 10:06 | EKG ---
Test Reason : Blood Pressure : / mmHG Vent. Rate : 066 BPM Atrial Rate : 056 BPM P-R Int : 000 ms QRS Dur : 148 ms QT Int : 458 ms P-R-T Axes : 000 -20 -21 degrees QTc Int : 480 ms ATRIAL FIBRILLATION RIGHT BUNDLE BRANCH BLOCK ABNORMAL ECG WHEN COMPARED WITH ECG OF 09-APR-2018 10:52, NO SIGNIFICANT CHANGE WAS FOUND Confirmed by MD Vasquez Daniel ([id number]) on 06/15/2020 10:05:52 AM Referred By: Confirmed By:Jordy Vasquez MD
== END 2020-06-14 16:40 | disposition home or self-care (01) ==
LOC: JER 12:37
PROC: 3E033GC Introduction of Other Therapeutic Substance into Peripheral Vein, Percutaneous Approach (ICD-10-PCS; principal; 2020-06-14)
DX: R06.00 Dyspnea, unspecified (principal); I50.9 Heart failure, unspecified
CPT/HCPCS: 36415; 71046-TC-FY; 80053; 81003; 82550; 83880; 84484; 85025; 85610; 85730; 87086; 87186; 93005; 93010; 99285-25

== ENCOUNTER 2020-09-06 20:33 | Inpatient (IN) | payer OTHER, BC ==
[2020-09-06 22:17] LABS: EOS % 3.8 % (0-4.5); HEMATOCRIT 36.2 % (32.4-45.2); HEMOGLOBIN 11.6 GM/dL (10.7-15.3); LYMPH % 18.1 % (8-40); MCH 26.2 pg (25.7-33.7); MCHC 31.9 g/dl (32.0-36.0); MEAN CELL VOLUME 82.1 fl (80-96); MEAN PLT VOLUME 10.6 fl (7.5-11.1); MONO % 8.3 % (3.8-10.2); NEUT % 68.8 % (42.8-82.8); PLATELET COUNT 227 K/MM3 (134-434); RBC 4.41 M/mm3 (3.60-5.2); RDW 16.8 % (11.6-15.6); WHITE BLOOD COUNT 8.7 K/mm3 (4.0-10.0)
[2020-09-06 22:29] LABS: INR 1.96 (0.83-1.09); PROTHROMBIN TIME (PATIENT) 23.2 SEC (9.7-13.0)
[2020-09-06 22:31] LABS: ACTIVATED PTT 39.1 SECONDS (25.2-36.5); CHLORIDE 106 mmol/L (98-107); POTASSIUM 4.4 mmol/L (3.5-5.1); SODIUM 138 mmol/L (136-145)
[2020-09-06 22:32] LABS: ALBUMIN 3.4 g/dl (3.4-5.0); ANION GAP 7 MMOL/L (8-16); BLOOD UREA NITROGEN 34.3 mg/dL (7-18); CALCIUM 8.9 mg/dL (8.5-10.1); CO2 25 mmol/L (21-32); GLUCOSE,RANDOM 92 mg/dL (74-106)
[2020-09-06 22:36] LABS: SGOT/AST 14 U/L (15-37); SGPT/ALT 13 U/L (13-61)
[2020-09-06 22:37] LABS: CREATININE 1.6 mg/dL (0.55-1.3)
[2020-09-06 22:38] LABS: BILIRUBIN,TOTAL 0.4 mg/dL (0.2-1); TOT PROT 6.2 g/dl (6.4-8.2)
[2020-09-06 22:39] LABS: ALK PHOS 112 U/L (45-117)
[2020-09-06 22:41] LABS: N-TERMINAL BNP 2038.5 pg/ml (5-450)
[2020-09-07] MEDS ORDERED: ALPRAZolam 0.25 MG TABLET PO ONE (03:49)
[2020-09-07] MEDS ORDERED: ALPRAZolam 1 MG TABLET PO PRN (03:49)
[2020-09-07] MEDS ORDERED: ALPRAZolam 1 MG TABLET ONE (03:56)
[2020-09-07] MEDS ORDERED: PT OWN MED DRAWER 7, Y5N ONE (08:00)
[2020-09-07] MEDS: LEVOTHYROXINE NA 88 MCG TABLET (FP) PO SCH (10:15)
[2020-09-07] MEDS ORDERED: REGADENOSON 0.4 MG/5 ML PRE-FILLED SYRINGE IVPUSH ONE ×2 (10:28→11:00)
[2020-09-07] MEDS: APIXABAN 5 MG TABLET PO SCH ×2 (13:47→22:57)
[2020-09-07] MEDS: RAMIPRIL 5 MG CAPSULE PO SCH (13:47)
[2020-09-07] MEDS: ASPIRIN COATED 81 MG TABLET.EC PO SCH (13:47)
[2020-09-07] MEDS: FUROSEMIDE 20 MG TABLET (FP) PO SCH (13:47)
[2020-09-07] MEDS: METOPROLOL TARTRATE 25 MG TABLET (FP) PO SCH (13:48)
[2020-09-07] MEDS: amLODIPine BESYLATE 5 MG TABLET (FP) PO SCH (13:48)
[2020-09-07] MEDS ORDERED: ATORVASTATIN CA 20 MG TABLET (FP) PO SCH (22:00)
[2020-09-07] MEDS ORDERED: ATORVASTATIN CA 20 MG TABLET (FP) ONE (22:51)
[2020-09-07] MEDS ORDERED: APIXABAN 5 MG TABLET ONE (22:51)
[2020-09-08 03:13] VITALS: BMI 34.8
[2020-09-08] MEDS: LEVOTHYROXINE NA 88 MCG TABLET (FP) PO SCH (07:04)
[2020-09-08 07:20] LABS: HEMATOCRIT 34.9 % (32.4-45.2); MCH 26.1 pg (25.7-33.7); MCHC 31.6 g/dl (32.0-36.0); MEAN CELL VOLUME 82.8 fl (80-96); MEAN PLT VOLUME 10.6 fl (7.5-11.1); PLATELET COUNT 190 K/MM3 (134-434); RBC 4.21 M/mm3 (3.60-5.2); RDW 16.8 % (11.6-15.6)
[2020-09-08 07:34] LABS: CHLORIDE 110 mmol/L (98-107); POTASSIUM 4.5 mmol/L (3.5-5.1); SODIUM 141 mmol/L (136-145)
[2020-09-08 07:56] LABS: CALCIUM 8.5 mg/dL (8.5-10.1)
[2020-09-08 07:58] LABS: ANION GAP 9 MMOL/L (8-16); BLOOD UREA NITROGEN 31.5 mg/dL (7-18); CO2 22 mmol/L (21-32); GLUCOSE,RANDOM 79 mg/dL (74-106); MAGNESIUM 2.4 mg/dL (1.8-2.4)
[2020-09-08 08:01] LABS: CREATININE 1.2 mg/dL (0.55-1.3)
[2020-09-08 09:51] VITALS: TEMP 97.5
[2020-09-08] MEDS: RAMIPRIL 5 MG CAPSULE PO SCH (09:51)
[2020-09-08] MEDS: METOPROLOL TARTRATE 25 MG TABLET (FP) PO SCH (09:51)
[2020-09-08] MEDS: FUROSEMIDE 20 MG TABLET (FP) PO SCH (09:51)
[2020-09-08] MEDS: APIXABAN 5 MG TABLET PO SCH (09:51)
[2020-09-08] MEDS: ASPIRIN COATED 81 MG TABLET.EC PO SCH (09:51)
[2020-09-08] MEDS: amLODIPine BESYLATE 5 MG TABLET (FP) PO SCH (09:52)
[2020-09-08 10:04] LABS: EPI CELLS >36 /uL (0-25.1); HYALINE CASTS 6 /uL (0-3.1); URINE APPEARANCE CLOUDY; URINE BACTERIA >9,000 /uL (0-1359); URINE BILIRUBIN NEGATIVE (NEGATIVE); URINE COLOR YELLOW; URINE GLUCOSE (UA) NEGATIVE (NEGATIVE); URINE KETONE NEGATIVE (NEGATIVE); URINE LEUK ESTERASE 2+ (NEGATIVE); URINE NITRITE POSITIVE (NEGATIVE); URINE PROTEIN NEGATIVE (NEGATIVE); URINE RBC 21 /uL (0-23.9); URINE UROBILINOGEN 0.2 mg/dL (0.2-1.0); URINE WBC 868 /uL (0-25.8)
[2020-09-08 14:34] VITALS: BP 102/55; PULSE 71
[2020-09-09] MEDS ORDERED: PNEUMOC 13-VAL CONJ-DIP CRM/PF 0.5 ML DISP.SYRIN IM ONE (10:00)
== END 2020-09-08 17:45 | disposition home or self-care (01) | DRG 313 ==
LOC: JER 20:33 → JERBED 09-07 00:04 → OBSVTOIN 09-07 00:17 → J4S 09-07 23:51
PROVIDERS: ADMIT Hospitalist; ATTEND Nurse Practitioner Acute Care
DX: R07.9 Chest pain, unspecified (principal); I50.32 Chronic diastolic (congestive) heart failure; R06.02 Shortness of breath; I27.20 Pulmonary hypertension, unspecified; I48.91 Unspecified atrial fibrillation; Z95.1 Presence of aortocoronary bypass graft; I10 Essential (primary) hypertension; E78.5 Hyperlipidemia, unspecified; E11.9 Type 2 diabetes mellitus without complications; Z95.4 Presence of other heart-valve replacement; I25.10 Atherosclerotic heart disease of native coronary artery without angina pectoris; E03.9 Hypothyroidism, unspecified
CPT/HCPCS: 36415; 70450-TC; 71045-TC-FY; 78452-TC; 80048; 80053; 81003; 82550; 82962; 83735; 83880; 84443; 84484; 85025; 85027; 85610; 85730; 93005; 93010; 93017; 93306-TC; 99284-25; 99285-25; A9502; C9803; G0378; J2785; U0003

== ENCOUNTER 2022-04-17 05:05 | Observation (INO) | payer OTHER, BC ==
[2022-04-17 05:39] VITALS: BMI 42.2
[2022-04-17 07:03] LABS: BASO % 0.6 % (0-2.0); EOS % 2.4 % (0-4.5); HEMATOCRIT 33.5 % (32.4-45.2); HEMOGLOBIN 10.5 GM/dL (10.7-15.3); LYMPH % 11.8 % (8-40); MCH 23.6 pg (25.7-33.7); MCHC 31.4 g/dl (32.0-36.0); MEAN CELL VOLUME 75.2 fl (80-96); MEAN PLT VOLUME 10.1 fl (7.5-11.1); NEUT % 75.2 % (42.8-82.8); PLATELET COUNT 263 10^3/uL (134-434); RBC 4.45 M/mm3 (3.60-5.2); RDW 20.3 % (11.6-15.6); WHITE BLOOD COUNT 10.9 K/mm3 (4.0-10.0)
[2022-04-17 07:30] LABS: INR 1.21 (0.83-1.09); PROTHROMBIN TIME (PATIENT) 13.9 SEC (9.7-13.0)
[2022-04-17 07:33] LABS: ACTIVATED PTT 30.4 SECONDS (25.2-36.5)
[2022-04-17 07:34] LABS: CALCIUM 8.5 mg/dL (8.5-10.1)
[2022-04-17 07:35] LABS: BLOOD UREA NITROGEN 12.9 mg/dL (7-18)
[2022-04-17 07:37] LABS: CREATININE 1.1 mg/dL (0.55-1.3)
[2022-04-17 07:39] LABS: BILIRUBIN,TOTAL 0.4 mg/dL (0.2-1); TOT PROT 5.8 g/dl (6.4-8.2)
[2022-04-17 07:42] LABS: N-TERMINAL BNP 3104.8 pg/ml (5-450)
[2022-04-17] MEDS ORDERED: CEFEPIME HCL/D5W 2 GM/50 ML BAG IVPB ONE (11:40)
[2022-04-17] MEDS ORDERED: IBUPROFEN 400 MG TABLET (FP) PO ONE ×2 (11:40→11:51)
[2022-04-17] MEDS ORDERED: CEFEPIME 2 GM/100 ML BAG IVPB ONE (11:50)
[2022-04-17 12:57] LABS: URIC ACID 7.5 mg/dL (2.6-7.2)
[2022-04-17] MEDS ORDERED: COLCHICINE 0.6 MG CAP PO ONE (13:36)
[2022-04-17] MEDS ORDERED: ACETAMINOPHEN 1000 MG/100 ML BAG IVPB PRN (13:38)
[2022-04-17] MEDS ORDERED: COLCHICINE 0.6 MG TAB PO ONE (14:36)
[2022-04-17] MEDS: INSULIN SLIDING SCALE (NOVOLOG) 1 VIAL SQ SCH ×2 (17:15→22:02)
[2022-04-17] MEDS: METOPROLOL TARTRATE 25 MG TABLET (FP) PO SCH (22:02)
[2022-04-17] MEDS: APIXABAN 5 MG TABLET PO SCH (22:02)
[2022-04-17] MEDS: ATORVASTATIN CA 20 MG TABLET (FP) PO SCH (22:02)
[2022-04-18] MEDS: LEVOTHYROXINE NA 88 MCG TABLET (FP) PO SCH (06:27)
[2022-04-18 08:46] LABS: BASO % 0.5 % (0-2.0); EOS % 3.6 % (0-4.5); HEMATOCRIT 33.7 % (32.4-45.2); HEMOGLOBIN 10.5 GM/dL (10.7-15.3); LYMPH % 17.2 % (8-40); MCH 23.4 pg (25.7-33.7); MCHC 31.2 g/dl (32.0-36.0); MEAN CELL VOLUME 74.9 fl (80-96); MEAN PLT VOLUME 9.8 fl (7.5-11.1); MONO % 9.7 % (3.8-10.2); PLATELET COUNT 256 10^3/uL (134-434); RDW 19.9 % (11.6-15.6); WHITE BLOOD COUNT 9.5 K/mm3 (4.0-10.0)
[2022-04-18 09:12] LABS: ALBUMIN 2.9 g/dl (3.4-5.0)
[2022-04-18 09:13] LABS: BLOOD UREA NITROGEN 18.9 mg/dL (7-18); CALCIUM 8.3 mg/dL (8.5-10.1)
[2022-04-18 09:17] LABS: CREATININE 1.2 mg/dL (0.55-1.3); PHOSPHOROUS 3.4 mg/dL (2.5-4.9)
[2022-04-18 09:18] LABS: BILIRUBIN,TOTAL 0.4 mg/dL (0.2-1); TOT PROT 5.8 g/dl (6.4-8.2)
[2022-04-18] MEDS: METOPROLOL TARTRATE 25 MG TABLET (FP) PO SCH ×2 (09:56→22:42)
[2022-04-18] MEDS: RAMIPRIL 5 MG CAPSULE PO SCH (09:56)
[2022-04-18] MEDS: APIXABAN 5 MG TABLET PO SCH ×2 (09:56→22:42)
[2022-04-18] MEDS: amLODIPine BESYLATE 5 MG TABLET (FP) PO SCH (09:56)
[2022-04-18] MEDS: INSULIN SLIDING SCALE (NOVOLOG) 1 VIAL SQ SCH ×3 (11:39→22:40)
[2022-04-18] MEDS: predniSONE 20 MG TABLET (UD) PO SCH (13:52)
[2022-04-18] MEDS ORDERED: NAPROXEN 500 MG TABLET PO ONE (14:18)
[2022-04-18] MEDS ORDERED: ACETAMINOPHEN 500 MG TABLET (FP) PO PRN (14:30)
[2022-04-18] MEDS ORDERED: INSULIN (NOVOLOG) ASPART 100 UNITS/ML 10ML VIAL ONE (21:12)
[2022-04-18] MEDS: ATORVASTATIN CA 20 MG TABLET (FP) PO SCH (22:42)
[2022-04-19] MEDS: LEVOTHYROXINE NA 88 MCG TABLET (FP) PO SCH (06:31)
[2022-04-19] MEDS: INSULIN SLIDING SCALE (NOVOLOG) 1 VIAL SQ SCH ×4 (06:31→23:10)
[2022-04-19 09:56] LABS: HEMATOCRIT 33.2 % (32.4-45.2); HEMOGLOBIN 10.4 GM/dL (10.7-15.3); MCH 23.5 pg (25.7-33.7); MCHC 31.5 g/dl (32.0-36.0); MEAN CELL VOLUME 74.5 fl (80-96); MEAN PLT VOLUME 10.1 fl (7.5-11.1); PLATELET COUNT 307 10^3/uL (134-434); RBC 4.45 M/mm3 (3.60-5.2); WHITE BLOOD COUNT 8.4 K/mm3 (4.0-10.0)
[2022-04-19 10:10] LABS: CALCIUM 8.8 mg/dL (8.5-10.1)
[2022-04-19 10:11] LABS: BLOOD UREA NITROGEN 21.3 mg/dL (7-18)
[2022-04-19 10:14] LABS: CREATININE 1.1 mg/dL (0.55-1.3)
[2022-04-19] MEDS: amLODIPine BESYLATE 5 MG TABLET (FP) PO SCH (10:34)
[2022-04-19] MEDS: predniSONE 20 MG TABLET (UD) PO SCH (10:34)
[2022-04-19] MEDS: APIXABAN 5 MG TABLET PO SCH ×2 (10:34→22:13)
[2022-04-19] MEDS: METOPROLOL TARTRATE 25 MG TABLET (FP) PO SCH ×2 (10:34→22:13)
[2022-04-19] MEDS: RAMIPRIL 5 MG CAPSULE PO SCH (10:34)
[2022-04-19 15:38] LABS: URIC ACID 7.1 mg/dL (2.6-7.2)
[2022-04-19] MEDS: ATORVASTATIN CA 20 MG TABLET (FP) PO SCH (22:13)
[2022-04-20] MEDS: LEVOTHYROXINE NA 88 MCG TABLET (FP) PO SCH (06:33)
[2022-04-20] MEDS: INSULIN SLIDING SCALE (NOVOLOG) 1 VIAL SQ SCH ×2 (06:36→21:52)
[2022-04-20 07:59] LABS: CALCIUM 8.8 mg/dL (8.5-10.1)
[2022-04-20 08:00] LABS: BLOOD UREA NITROGEN 28.5 mg/dL (7-18)
[2022-04-20 08:03] LABS: CREATININE 1.2 mg/dL (0.55-1.3)
[2022-04-20 08:12] LABS: HEMATOCRIT 33.7 % (32.4-45.2); HEMOGLOBIN 10.5 GM/dL (10.7-15.3); MCH 23.6 pg (25.7-33.7); MCHC 31.2 g/dl (32.0-36.0); MEAN CELL VOLUME 75.5 fl (80-96); MEAN PLT VOLUME 10.1 fl (7.5-11.1); PLATELET COUNT 286 10^3/uL (134-434); RBC 4.47 M/mm3 (3.60-5.2); RDW 20.2 % (11.6-15.6); WHITE BLOOD COUNT 9.3 K/mm3 (4.0-10.0)
[2022-04-20] MEDS: predniSONE 20 MG TABLET (UD) PO SCH (09:44)
[2022-04-20] MEDS: METOPROLOL TARTRATE 25 MG TABLET (FP) PO SCH ×2 (09:44→21:59)
[2022-04-20] MEDS: RAMIPRIL 5 MG CAPSULE PO SCH (09:44)
[2022-04-20] MEDS: APIXABAN 5 MG TABLET PO SCH ×2 (09:44→21:59)
[2022-04-20] MEDS: amLODIPine BESYLATE 5 MG TABLET (FP) PO SCH (09:44)
[2022-04-20] MEDS: ATORVASTATIN CA 20 MG TABLET (FP) PO SCH (21:59)
[2022-04-21 00:14] VITALS: BP 148/72; PULSE 65; TEMP 97.5
== END 2022-04-20 22:05 | disposition home health service (06) ==
LOC: JER 05:05 → JERBED 11:42 → J6S 14:24
PROVIDERS: ADMIT Internal Medicine; ATTEND Internal Medicine
DX: R60.0 Localized edema (principal); L53.9 Erythematous condition, unspecified; M10.9 Gout, unspecified; I11.0 Hypertensive heart disease with heart failure; I25.10 Atherosclerotic heart disease of native coronary artery without angina pectoris; I48.91 Unspecified atrial fibrillation; I45.10 Unspecified right bundle-branch block; I50.9 Heart failure, unspecified; E11.9 Type 2 diabetes mellitus without complications; E78.5 Hyperlipidemia, unspecified; R06.02 Shortness of breath; D50.9 Iron deficiency anemia, unspecified; E87.8 Other disorders of electrolyte and fluid balance, not elsewhere classified; E03.9 Hypothyroidism, unspecified; E66.01 Morbid (severe) obesity due to excess calories; Z68.41 Body mass index [BMI] 40.0-44.9, adult; Z88.2 Allergy status to sulfonamides; Z95.1 Presence of aortocoronary bypass graft; Z95.4 Presence of other heart-valve replacement; Z95.5 Presence of coronary angioplasty implant and graft; Z79.01 Long term (current) use of anticoagulants; Z79.84 Long term (current) use of oral hypoglycemic drugs; Z79.82 Long term (current) use of aspirin
CPT/HCPCS: 36415; 71045-TC-FY; 73610-TC-RT-FY; 73630-TC-RT-FY; 80048; 80053; 82962; 83036; 83735; 83880; 84100; 84443; 84484; 84550; 85025; 85027; 85610; 85730; 87086; 93005; 93010; 93970-TC; 96365; 97116-GP; 99285-25; C9803-CS; G0378; U0003; U0005

== ENCOUNTER 2023-08-29 14:56 | Inpatient (IN) | payer OTHER, BC ==
[2023-08-29] MEDS ORDERED: ALBUTEROL SO4 2.5/IPRATROPIUM 0.5 INH SOL 3 ML VIAL.NEB. NEB ONE ×3 (17:18→18:54)
[2023-08-29 17:47] LABS: HEMATOCRIT 37.6 % (32.4-45.2); HEMOGLOBIN 11.7 GM/dL (10.7-15.3); MCH 25.5 pg (25.7-33.7); MEAN CELL VOLUME 82.2 fl (80-96); PLATELET COUNT 294 10^3/uL (134-434); RBC 4.58 M/mm3 (3.60-5.2); WHITE BLOOD COUNT 9.2 K/mm3 (4.0-10.0)
[2023-08-29 17:53] LABS: VENOUS BASE EXCESS -1.1 mmol/L (-2-2); VENOUS O2 SATURATION 60.7 % (70-80); VENOUS PCO2 46.7 mmHg (38-52); VENOUS PH 7.345 (7.310-7.410)
[2023-08-29 18:12] LABS: POTASSIUM 4.5 mmol/L (3.5-5.1)
[2023-08-29 18:15] LABS: ALBUMIN 3.7 g/dl (3.4-5.0); BLOOD UREA NITROGEN 26.8 mg/dL (7-18)
[2023-08-29 18:19] LABS: CREATININE 1.3 mg/dL (0.55-1.3)
[2023-08-29 18:20] LABS: BILIRUBIN,TOTAL 0.4 mg/dL (0.2-1); TOT PROT 7.2 g/dl (6.4-8.2)
[2023-08-29] MEDS ORDERED: FUROSEMIDE 40 MG/4 ML INJECTABLE VIAL IVPUSH ONE (18:49)
[2023-08-29] MEDS ORDERED: FUROSEMIDE 40 MG/4 ML INJECTABLE VIAL ONE (18:55)
[2023-08-29 19:28] LABS: ANISOCYTOSIS 1+; MACROCYTOSIS 1+; OVALOCYTE 1+
[2023-08-29] MEDS ORDERED: guaiFENesin 200 MG/10 ML 10 ML UNIT-DOSE CUPS PO ONE (19:38)
[2023-08-29] MEDS ORDERED: guaiFENesin/D-METHORPHAN HB 10 ML UNIT-DOSE CUPS ONE (20:45)
[2023-08-30] MEDS ORDERED: QUEtiapine FUMARATE 25 MG TABLET PO ONE (00:34)
[2023-08-30] MEDS ORDERED: FUROSEMIDE 40 MG/4 ML INJECTABLE VIAL ONE (05:55)
[2023-08-30] MEDS: FUROSEMIDE 40 MG/4 ML INJECTABLE VIAL IVPUSH SCH ×2 (05:56→14:08)
[2023-08-30] MEDS ORDERED: LEVOTHYROXINE NA 100 MCG TABLET (FP) ONE (07:46)
[2023-08-30 07:50] LABS: HEMATOCRIT 32.2 % (32.4-45.2); HEMOGLOBIN 10.1 GM/dL (10.7-15.3); MCH 25.2 pg (25.7-33.7); MCHC 31.2 g/dl (32.0-36.0); MEAN CELL VOLUME 80.7 fl (80-96); MEAN PLT VOLUME 10.1 fl (7.5-11.1); PLATELET COUNT 289 10^3/uL (134-434); RDW 17.3 % (11.6-15.6)
[2023-08-30] MEDS: LEVOTHYROXINE NA 100 MCG TABLET (FP) PO SCH (07:55)
[2023-08-30 08:25] LABS: POTASSIUM 4.5 mmol/L (3.5-5.1)
[2023-08-30 08:28] LABS: ALBUMIN 3.2 g/dl (3.4-5.0); BLOOD UREA NITROGEN 33.7 mg/dL (7-18); CALCIUM 9.2 mg/dL (8.5-10.1)
[2023-08-30 08:32] LABS: CREATININE 1.5 mg/dL (0.55-1.3)
[2023-08-30 08:33] LABS: BILIRUBIN,TOTAL 0.8 mg/dL (0.2-1); TOT PROT 6.3 g/dl (6.4-8.2)
[2023-08-30 09:19] LABS: ANISOCYTOSIS 3+; MACROCYTOSIS 0
[2023-08-30] MEDS: ASPIRIN 81 MG CHEWABLE TABLETS PO SCH (09:43)
[2023-08-30] MEDS: METOPROLOL TARTRATE 25 MG TABLET (FP) PO SCH ×2 (09:44→21:12)
[2023-08-30] MEDS: amLODIPine BESYLATE 10 MG TABLET (FP) PO SCH (09:44)
[2023-08-30] MEDS: COLCHICINE 0.6 MG TAB PO SCH ×2 (09:44→21:12)
[2023-08-30] MEDS: CALCITRIOL 0.25 MCG CAPSULE (FP) PO SCH (09:44)
[2023-08-30] MEDS ORDERED: ENOXAPARIN NA (PORCINE) 40 MG/0.4 ML DISP.SYRIN SQ SCH ×2 (10:00)
[2023-08-30] MEDS ORDERED: APIXABAN 5 MG TABLET PO SCH (10:00)
[2023-08-30 15:56] VITALS: BMI 34.7
[2023-08-30] MEDS: QUEtiapine FUMARATE 25 MG TABLET PO SCH (21:12)
[2023-08-30] MEDS: DONEPEZIL HCL 10 MG TABLET (FP) PO SCH (21:12)
[2023-08-30] MEDS: APIXABAN 2.5 MG TABLET PO SCH (21:12)
[2023-08-31] MEDS ORDERED: MELATONIN 5 MG TABLETS PO ONE (01:37)
[2023-08-31] MEDS: LEVOTHYROXINE NA 100 MCG TABLET (FP) PO SCH (06:46)
[2023-08-31 07:39] LABS: BASO % 0.2 % (0-2.0); EOS % 0.3 % (0-4.5); HEMATOCRIT 30.7 % (32.4-45.2); HEMOGLOBIN 9.7 GM/dL (10.7-15.3); LYMPH % 11.3 % (8-40); MCH 25.5 pg (25.7-33.7); MCHC 31.5 g/dl (32.0-36.0); MEAN CELL VOLUME 80.8 fl (80-96); MONO % 8.3 % (3.8-10.2); NEUT % 79.9 % (42.8-82.8); PLATELET COUNT 294 10^3/uL (134-434); RBC 3.79 M/mm3 (3.60-5.2); WHITE BLOOD COUNT 8.5 K/mm3 (4.0-10.0)
[2023-08-31 07:59] LABS: POTASSIUM 4.7 mmol/L (3.5-5.1)
[2023-08-31 08:05] LABS: BLOOD UREA NITROGEN 51.6 mg/dL (7-18); CALCIUM 8.6 mg/dL (8.5-10.1)
[2023-08-31 08:06] LABS: ALBUMIN 3.1 g/dl (3.4-5.0)
[2023-08-31 08:08] LABS: CREATININE 1.6 mg/dL (0.55-1.3); PHOSPHOROUS 4.3 mg/dL (2.5-4.9)
[2023-08-31 08:09] LABS: BILIRUBIN,TOTAL 0.4 mg/dL (0.2-1); TOT PROT 5.9 g/dl (6.4-8.2)
[2023-08-31] MEDS ORDERED: FUROSEMIDE 40 MG/4 ML INJECTABLE VIAL IVPUSH SCH (10:00)
[2023-08-31] MEDS: APIXABAN 2.5 MG TABLET PO SCH ×2 (10:27→21:51)
[2023-08-31] MEDS: amLODIPine BESYLATE 10 MG TABLET (FP) PO SCH (10:27)
[2023-08-31] MEDS: COLCHICINE 0.6 MG TAB PO SCH (10:27)
[2023-08-31] MEDS: ASPIRIN 81 MG CHEWABLE TABLETS PO SCH (10:27)
[2023-08-31] MEDS: CALCITRIOL 0.25 MCG CAPSULE (FP) PO SCH (10:27)
[2023-08-31] MEDS: METOPROLOL TARTRATE 25 MG TABLET (FP) PO SCH ×2 (10:27→21:51)
[2023-08-31] MEDS: DONEPEZIL HCL 10 MG TABLET (FP) PO SCH (21:51)
[2023-08-31] MEDS: QUEtiapine FUMARATE 25 MG TABLET PO SCH (21:52)
[2023-09-01] MEDS: LEVOTHYROXINE NA 100 MCG TABLET (FP) PO SCH (06:41)
[2023-09-01 08:28] LABS: POTASSIUM 4.6 mmol/L (3.5-5.1)
[2023-09-01 08:33] LABS: CALCIUM 8.4 mg/dL (8.5-10.1)
[2023-09-01 08:34] LABS: BLOOD UREA NITROGEN 54.3 mg/dL (7-18); MAGNESIUM 2.2 mg/dL (1.8-2.4)
[2023-09-01 08:36] LABS: CREATININE 1.5 mg/dL (0.55-1.3); PHOSPHOROUS 4.4 mg/dL (2.5-4.9)
[2023-09-01 08:38] LABS: BASO % 1.1 % (0-2.0); BILIRUBIN,TOTAL 0.6 mg/dL (0.2-1); EOS % 2.8 % (0-4.5); HEMATOCRIT 33.2 % (32.4-45.2); HEMOGLOBIN 10.4 GM/dL (10.7-15.3); LYMPH % 28.4 % (8-40); MCH 25.6 pg (25.7-33.7); MCHC 31.3 g/dl (32.0-36.0); MEAN CELL VOLUME 81.6 fl (80-96); MONO % 10.3 % (3.8-10.2); NEUT % 57.4 % (42.8-82.8); PLATELET COUNT 267 10^3/uL (134-434); RBC 4.07 M/mm3 (3.60-5.2); TOT PROT 5.7 g/dl (6.4-8.2); WHITE BLOOD COUNT 8.5 K/mm3 (4.0-10.0)
[2023-09-01] MEDS ORDERED: TORSEMIDE 20 MG TABLET (FP) PO SCH (10:00)
[2023-09-01] MEDS: APIXABAN 2.5 MG TABLET PO SCH ×2 (10:07→21:20)
[2023-09-01] MEDS: amLODIPine BESYLATE 10 MG TABLET (FP) PO SCH (10:07)
[2023-09-01] MEDS: ASPIRIN 81 MG CHEWABLE TABLETS PO SCH (10:07)
[2023-09-01] MEDS: CALCITRIOL 0.25 MCG CAPSULE (FP) PO SCH (10:08)
[2023-09-01] MEDS: METOPROLOL TARTRATE 25 MG TABLET (FP) PO SCH ×2 (11:02→21:20)
[2023-09-01] MEDS: DONEPEZIL HCL 10 MG TABLET (FP) PO SCH (21:20)
[2023-09-01] MEDS: QUEtiapine FUMARATE 25 MG TABLET PO SCH (21:20)
[2023-09-02] MEDS: LEVOTHYROXINE NA 100 MCG TABLET (FP) PO SCH (06:22)
[2023-09-02 07:33] LABS: BASO % 0.8 % (0-2.0); EOS % 4.6 % (0-4.5); HEMATOCRIT 33.3 % (32.4-45.2); HEMOGLOBIN 10.5 GM/dL (10.7-15.3); LYMPH % 24.6 % (8-40); MCH 25.5 pg (25.7-33.7); MCHC 31.4 g/dl (32.0-36.0); MEAN CELL VOLUME 81.1 fl (80-96); MEAN PLT VOLUME 9.9 fl (7.5-11.1); MONO % 11.2 % (3.8-10.2); NEUT % 58.8 % (42.8-82.8); PLATELET COUNT 273 10^3/uL (134-434); RBC 4.11 M/mm3 (3.60-5.2); RDW 17.4 % (11.6-15.6); WHITE BLOOD COUNT 7.1 K/mm3 (4.0-10.0)
[2023-09-02 07:52] LABS: POTASSIUM 4.7 mmol/L (3.5-5.1)
[2023-09-02 07:57] LABS: ALBUMIN 2.8 g/dl (3.4-5.0)
[2023-09-02 07:58] LABS: BLOOD UREA NITROGEN 45.8 mg/dL (7-18); CALCIUM 8.5 mg/dL (8.5-10.1); MAGNESIUM 2.1 mg/dL (1.8-2.4)
[2023-09-02 08:00] LABS: PHOSPHOROUS 4.1 mg/dL (2.5-4.9)
[2023-09-02 08:01] LABS: BILIRUBIN,TOTAL 0.3 mg/dL (0.2-1); CREATININE 1.3 mg/dL (0.55-1.3); TOT PROT 5.4 g/dl (6.4-8.2)
[2023-09-02] MEDS: CALCITRIOL 0.25 MCG CAPSULE (FP) PO SCH (09:30)
[2023-09-02] MEDS: METOPROLOL TARTRATE 25 MG TABLET (FP) PO SCH (09:31)
[2023-09-02] MEDS: amLODIPine BESYLATE 10 MG TABLET (FP) PO SCH (09:31)
[2023-09-02] MEDS: APIXABAN 2.5 MG TABLET PO SCH (09:31)
[2023-09-02] MEDS: ASPIRIN 81 MG CHEWABLE TABLETS PO SCH (09:31)
[2023-09-02] MEDS ORDERED: TORSEMIDE 10 MG TABLET PO SCH (10:00)
[2023-09-02 12:12] VITALS: BP 189/93; PULSE 83; RESP 19; TEMP 98.2
[2023-09-02] MEDS ORDERED: TORSEMIDE 20 MG TABLET (FP) PO SCH (12:57)
== END 2023-09-02 17:45 | DRG 291 ==
LOC: JER 14:56 → JERBED 18:49 → OBSVTOIN 20:57 → J4W 08-30 15:05
PROVIDERS: ADMIT Internal Medicine; ATTEND Internal Medicine
DX: I11.0 Hypertensive heart disease with heart failure (principal); I50.33 Acute on chronic diastolic (congestive) heart failure; J98.11 Atelectasis; F03.90 Unspecified dementia, unspecified severity, without behavioral disturbance, psychotic disturbance, mood disturbance, and anxiety; I25.10 Atherosclerotic heart disease of native coronary artery without angina pectoris; I48.91 Unspecified atrial fibrillation; E03.9 Hypothyroidism, unspecified; E78.5 Hyperlipidemia, unspecified; Z95.1 Presence of aortocoronary bypass graft; R73.03 Prediabetes
CPT/HCPCS: 0241U-QW; 36415; 71045-TC-FY; 71250-TC; 80053; 82550; 82803; 82962; 83036; 83735; 83880; 84100; 84300; 84484; 85025; 93005; 93010; 93306-TC; 97116-GP; 97161-GP; 99285-25; G0378

== ENCOUNTER 2023-09-17 23:13 | Observation (INO) | payer OTHER, BC ==
[2023-09-18 00:54] LABS: BASO % 0.6 % (0-2.0); EOS % 1.1 % (0-4.5); HEMATOCRIT 34.1 % (32.4-45.2); HEMOGLOBIN 11.1 GM/dL (10.7-15.3); LYMPH % 17.9 % (8-40); MCH 25.4 pg (25.7-33.7); MCHC 32.4 g/dl (32.0-36.0); MEAN CELL VOLUME 78.3 fl (80-96); MEAN PLT VOLUME 9.2 fl (7.5-11.1); MONO % 13.8 % (3.8-10.2); NEUT % 66.6 % (42.8-82.8); PLATELET COUNT 279 10^3/uL (134-434); RBC 4.35 M/mm3 (3.60-5.2); RDW 18.1 % (11.6-15.6)
[2023-09-18 01:24] LABS: POTASSIUM 4.4 mmol/L (3.5-5.1)
[2023-09-18 01:26] LABS: CALCIUM 8.3 mg/dL (8.5-10.1)
[2023-09-18 01:27] LABS: ALBUMIN 3.1 g/dl (3.4-5.0); BLOOD UREA NITROGEN 32.9 mg/dL (7-18)
[2023-09-18 01:30] LABS: CREATININE 1.6 mg/dL (0.55-1.3)
[2023-09-18 01:31] LABS: BILIRUBIN,TOTAL 0.4 mg/dL (0.2-1)
[2023-09-18] MEDS ORDERED: SODIUM CHLORIDE 500 ML IV STA (02:33)
[2023-09-18] MEDS ORDERED: ALBUTEROL SO4 HFA INHALER IH SCH (02:45)
[2023-09-18] MEDS ORDERED: ALBUTEROL SO4 HFA INHALER IH PRN (05:22)
[2023-09-18 06:13] LABS: POTASSIUM 4.2 mmol/L (3.5-5.1)
[2023-09-18 06:16] LABS: BLOOD UREA NITROGEN 30.5 mg/dL (7-18); CALCIUM 8.1 mg/dL (8.5-10.1)
[2023-09-18 06:20] LABS: CREATININE 1.5 mg/dL (0.55-1.3)
[2023-09-18] MEDS ORDERED: COLCHICINE 0.6 MG TAB PO ONE ×2 (07:46→09:46)
[2023-09-18] MEDS: INSULIN SLIDING SCALE (NOVOLOG) 1 VIAL SQ SCH ×3 (08:00→16:47)
[2023-09-18] MEDS ORDERED: COLCHICINE 0.6 MG TAB ONE ×2 (08:19→10:07)
[2023-09-18] MEDS: LEVOTHYROXINE NA 100 MCG TABLET (FP) PO SCH (08:30)
[2023-09-18 09:00] LABS: URIC ACID 7.9 mg/dL (2.6-7.2)
[2023-09-18] MEDS ORDERED: APIXABAN 5 MG TABLET PO SCH (10:00)
[2023-09-18] MEDS: ASPIRIN 81 MG CHEWABLE TABLETS PO SCH (10:44)
[2023-09-18] MEDS: CALCITRIOL 0.25 MCG CAPSULE (FP) PO SCH (10:44)
[2023-09-18] MEDS: APIXABAN 2.5 MG TABLET PO SCH ×2 (10:44→21:31)
[2023-09-18] MEDS: QUEtiapine FUMARATE 25 MG TABLET PO SCH (10:44)
[2023-09-18] MEDS: amLODIPine BESYLATE 10 MG TABLET (FP) PO SCH (10:44)
[2023-09-18] MEDS: METOPROLOL TARTRATE 25 MG TABLET (FP) PO SCH ×2 (10:44→21:31)
[2023-09-18] MEDS ORDERED: ACETAMINOPHEN 325 MG TABLET (FP) PO PRN (11:35)
[2023-09-18] MEDS: LIDOCAINE 4% PATCH TP SCH (14:45)
[2023-09-18 15:47] VITALS: BMI 35.4
[2023-09-18] MEDS ORDERED: ACETAMINOPHEN 1000 MG/100 ML BAG IVPB PRN (20:47)
[2023-09-18] MEDS: LIDOCAINE PATCH REMOVAL MC SCH (21:30)
[2023-09-18] MEDS: DONEPEZIL HCL 10 MG TABLET (FP) PO SCH (21:31)
[2023-09-19] MEDS: LEVOTHYROXINE NA 100 MCG TABLET (FP) PO SCH (06:11)
[2023-09-19 08:45] LABS: BASO % 0.8 % (0-2.0); EOS % 2.4 % (0-4.5); HEMATOCRIT 30.9 % (32.4-45.2); HEMOGLOBIN 9.7 GM/dL (10.7-15.3); MCHC 31.4 g/dl (32.0-36.0); MEAN CELL VOLUME 79.5 fl (80-96); MEAN PLT VOLUME 10.4 fl (7.5-11.1); MONO % 13.7 % (3.8-10.2); NEUT % 67.1 % (42.8-82.8); PLATELET COUNT 237 10^3/uL (134-434); RBC 3.89 M/mm3 (3.60-5.2); RDW 17.2 % (11.6-15.6); WHITE BLOOD COUNT 8.9 K/mm3 (4.0-10.0)
[2023-09-19 09:04] LABS: POTASSIUM 4.4 mmol/L (3.5-5.1)
[2023-09-19 09:26] LABS: BLOOD UREA NITROGEN 28.8 mg/dL (7-18); CALCIUM 8.4 mg/dL (8.5-10.1)
[2023-09-19 09:27] LABS: ALBUMIN 2.6 g/dl (3.4-5.0)
[2023-09-19 09:29] LABS: CREATININE 1.4 mg/dL (0.55-1.3)
[2023-09-19 09:31] LABS: BILIRUBIN,TOTAL 0.8 mg/dL (0.2-1); TOT PROT 5.3 g/dl (6.4-8.2)
[2023-09-19] MEDS: COLCHICINE 0.6 MG TAB PO SCH (11:08)
[2023-09-19] MEDS: TORSEMIDE 20 MG TABLET (FP) PO SCH (11:08)
[2023-09-19] MEDS: ASPIRIN 81 MG CHEWABLE TABLETS PO SCH (11:08)
[2023-09-19] MEDS: LIDOCAINE 4% PATCH TP SCH (11:08)
[2023-09-19] MEDS: METOPROLOL TARTRATE 25 MG TABLET (FP) PO SCH ×2 (11:09→21:11)
[2023-09-19] MEDS: CALCITRIOL 0.25 MCG CAPSULE (FP) PO SCH (11:09)
[2023-09-19] MEDS: APIXABAN 2.5 MG TABLET PO SCH ×2 (11:09→21:11)
[2023-09-19] MEDS: amLODIPine BESYLATE 10 MG TABLET (FP) PO SCH (11:09)
[2023-09-19] MEDS: QUEtiapine FUMARATE 25 MG TABLET PO SCH (11:09)
[2023-09-19 11:46] VITALS: RESP 18
[2023-09-19] MEDS: DONEPEZIL HCL 10 MG TABLET (FP) PO SCH (21:11)
[2023-09-19] MEDS: LIDOCAINE PATCH REMOVAL MC SCH (21:11)
[2023-09-20 00:22] LABS: PH,URINE 5.5 (5.0-8.0); URINE APPEARANCE CLOUDY; URINE BILIRUBIN NEGATIVE (NEGATIVE); URINE COLOR YELLOW; URINE GLUCOSE (UA) NEGATIVE (NEGATIVE); URINE KETONE NEGATIVE (NEGATIVE); URINE LEUK ESTERASE NEGATIVE (NEGATIVE); URINE NITRITE NEGATIVE (NEGATIVE); URINE PROTEIN NEGATIVE (NEGATIVE); URINE UROBILINOGEN 0.2 mg/dL (0.2-1.0)
[2023-09-20] MEDS: LEVOTHYROXINE NA 100 MCG TABLET (FP) PO SCH (06:14)
[2023-09-20] MEDS: LIDOCAINE 4% PATCH TP SCH (09:30)
[2023-09-20] MEDS: METOPROLOL TARTRATE 25 MG TABLET (FP) PO SCH ×2 (09:52→22:39)
[2023-09-20] MEDS: APIXABAN 2.5 MG TABLET PO SCH ×2 (09:53→22:39)
[2023-09-20] MEDS: amLODIPine BESYLATE 10 MG TABLET (FP) PO SCH (09:53)
[2023-09-20] MEDS: QUEtiapine FUMARATE 25 MG TABLET PO SCH (09:53)
[2023-09-20] MEDS: TORSEMIDE 20 MG TABLET (FP) PO SCH (09:53)
[2023-09-20] MEDS: COLCHICINE 0.6 MG TAB PO SCH (09:53)
[2023-09-20] MEDS: ASPIRIN 81 MG CHEWABLE TABLETS PO SCH (09:53)
[2023-09-20] MEDS: CALCITRIOL 0.25 MCG CAPSULE (FP) PO SCH (09:53)
[2023-09-20 10:09] LABS: POTASSIUM 3.9 mmol/L (3.5-5.1)
[2023-09-20 10:11] LABS: CALCIUM 8.2 mg/dL (8.5-10.1)
[2023-09-20 10:12] LABS: ALBUMIN 2.6 g/dl (3.4-5.0)
[2023-09-20 10:15] LABS: CREATININE 1.6 mg/dL (0.55-1.3)
[2023-09-20 10:16] LABS: BILIRUBIN,TOTAL 0.3 mg/dL (0.2-1); TOT PROT 5.5 g/dl (6.4-8.2)
[2023-09-20 10:24] LABS: EOS % 4.6 % (0-4.5); HEMATOCRIT 32.5 % (32.4-45.2); HEMOGLOBIN 10.2 GM/dL (10.7-15.3); LYMPH % 17.4 % (8-40); MCH 24.9 pg (25.7-33.7); MCHC 31.3 g/dl (32.0-36.0); MEAN CELL VOLUME 79.6 fl (80-96); MEAN PLT VOLUME 9.9 fl (7.5-11.1); MONO % 12.8 % (3.8-10.2); NEUT % 64.2 % (42.8-82.8); PLATELET COUNT 258 10^3/uL (134-434); RBC 4.08 M/mm3 (3.60-5.2); RDW 16.9 % (11.6-15.6)
[2023-09-20] MEDS: DONEPEZIL HCL 10 MG TABLET (FP) PO SCH (22:39)
[2023-09-20] MEDS: LIDOCAINE PATCH REMOVAL MC SCH (22:43)
[2023-09-20 22:54] VITALS: BP 150/68; PULSE 67; TEMP 98
== END 2023-09-20 23:30 ==
LOC: JER 23:13 → JERBED 09-18 00:09 → J7W 09-18 11:07
PROVIDERS: ADMIT Internal Medicine
PROC: 3E0337Z Introduction of Electrolytic and Water Balance Substance into Peripheral Vein, Percutaneous Approach (ICD-10-PCS; principal; 2023-09-18)
DX: Z91.81 History of falling (principal); M10.9 Gout, unspecified; M79.661 Pain in right lower leg; I13.0 Hypertensive heart and chronic kidney disease with heart failure and stage 1 through stage 4 chronic kidney disease, or unspecified chronic kidney disease; N18.9 Chronic kidney disease, unspecified; I50.30 Unspecified diastolic (congestive) heart failure; N17.9 Acute kidney failure, unspecified; F03.90 Unspecified dementia, unspecified severity, without behavioral disturbance, psychotic disturbance, mood disturbance, and anxiety; E03.9 Hypothyroidism, unspecified; E78.5 Hyperlipidemia, unspecified; R73.03 Prediabetes; I25.10 Atherosclerotic heart disease of native coronary artery without angina pectoris; I48.91 Unspecified atrial fibrillation; M19.071 Primary osteoarthritis, right ankle and foot; R60.0 Localized edema; R62.7 Adult failure to thrive; Z68.35 Body mass index [BMI] 35.0-35.9, adult; I35.0 Nonrheumatic aortic (valve) stenosis; Z95.1 Presence of aortocoronary bypass graft; Z96.651 Presence of right artificial knee joint; Z79.01 Long term (current) use of anticoagulants; Z95.2 Presence of prosthetic heart valve
CPT/HCPCS: 0241U-QW; 36415; 71045-TC-FY; 72170-TC-FY; 73502-TC-RT-FY; 73552-TC-RT-FY; 73562-TC-RT-FY; 73590-TC-RT-FY; 73610-TC-RT-FY; 73630-TC-RT-FY; 73700-TC-RT; 80048; 80053; 81003; 82962; 84550; 85025; 85379; 87040; 87086; 93005; 93010; 93970-TC; 96360; 97116-GP; 97161-GP; 99285-25; G0378

== ENCOUNTER 2023-10-23 18:08 | Inpatient (IN) | payer OTHER, BC ==
[2023-10-23] MEDS ORDERED: ACETAMINOPHEN 1000 MG/100 ML BAG IVPB ONE (19:34)
[2023-10-23 20:56] LABS: BASO % 0.6 % (0-2.0); EOS % 1.1 % (0-4.5); HEMATOCRIT 32.9 % (32.4-45.2); LYMPH % 11.3 % (8-40); MCH 23.3 pg (25.7-33.7); MCHC 30.4 g/dl (32.0-36.0); MEAN CELL VOLUME 76.9 fl (80-96); MEAN PLT VOLUME 9.1 fl (7.5-11.1); MONO % 9.6 % (3.8-10.2); NEUT % 77.4 % (42.8-82.8); PLATELET COUNT 297 10^3/uL (134-434); RBC 4.28 M/mm3 (3.60-5.2); RDW 18.6 % (11.6-15.6); WHITE BLOOD COUNT 11.9 K/mm3 (4.0-10.0)
[2023-10-23] MEDS ORDERED: ACETAMINOPHEN INJECTION 100 ML IVPB ONE (20:58)
[2023-10-23 21:03] LABS: INR 1.56 (0.83-1.09)
[2023-10-23 21:06] LABS: ACTIVATED PTT 36.5 SECONDS (25.2-36.5)
[2023-10-23 21:23] LABS: POTASSIUM 4.4 mmol/L (3.5-5.1)
[2023-10-23 21:24] LABS: CALCIUM 8.7 mg/dL (8.5-10.1)
[2023-10-23 21:25] LABS: ALBUMIN 3.3 g/dl (3.4-5.0); BLOOD UREA NITROGEN 22.2 mg/dL (7-18)
[2023-10-23 21:28] LABS: CREATININE 1.3 mg/dL (0.55-1.3)
[2023-10-23 21:30] LABS: BILIRUBIN,TOTAL 0.5 mg/dL (0.2-1); TOT PROT 6.4 g/dl (6.4-8.2)
[2023-10-23 21:33] LABS: N-TERMINAL BNP 4564.3 pg/ml (5-450)
[2023-10-23] MEDS ORDERED: FUROSEMIDE 40 MG/4 ML INJECTABLE VIAL IVPUSH ONE (22:05)
[2023-10-23] MEDS ORDERED: FUROSEMIDE 40 MG/4 ML INJECTABLE VIAL ONE (22:17)
[2023-10-24] MEDS ORDERED: LEVALBUTEROL HCL 0.31 MG/3 ML VIAL.NEB IH PRN (02:34)
[2023-10-24 03:05] LABS: URINE APPEARANCE CLEAR; URINE BILIRUBIN NEGATIVE (NEGATIVE); URINE COLOR COLORLESS; URINE GLUCOSE (UA) NEGATIVE (NEGATIVE); URINE KETONE NEGATIVE (NEGATIVE); URINE PROTEIN NEGATIVE (NEGATIVE)
[2023-10-24 03:06] LABS: URINE LEUK ESTERASE NEGATIVE (NEGATIVE); URINE NITRITE NEGATIVE (NEGATIVE); URINE UROBILINOGEN 0.2 mg/dL (0.2-1.0)
[2023-10-24 03:25] LABS: EPI CELLS 2.8 /uL (0-25.1); HYALINE CASTS 0 /uL (0-3.1); URINE RBC 1.9 /uL (0-23.9); URINE WBC 1.1 /uL (0-25.8)
[2023-10-24 04:37] LABS: HEMATOCRIT 31.6 % (32.4-45.2); HEMOGLOBIN 9.8 GM/dL (10.7-15.3); MCH 23.7 pg (25.7-33.7); MCHC 30.9 g/dl (32.0-36.0); MEAN CELL VOLUME 76.7 fl (80-96); MEAN PLT VOLUME 9.6 fl (7.5-11.1); PLATELET COUNT 257 10^3/uL (134-434); RBC 4.13 M/mm3 (3.60-5.2); RDW 18.6 % (11.6-15.6); WHITE BLOOD COUNT 12.7 K/mm3 (4.0-10.0)
[2023-10-24 04:59] LABS: URIC ACID 9.4 mg/dL (2.6-7.2)
[2023-10-24 07:53] LABS: HEMATOCRIT 30.1 % (32.4-45.2); HEMOGLOBIN 9.4 GM/dL (10.7-15.3); MCH 24.1 pg (25.7-33.7); MCHC 31.4 g/dl (32.0-36.0); MEAN CELL VOLUME 76.8 fl (80-96); MEAN PLT VOLUME 10.1 fl (7.5-11.1); PLATELET COUNT 252 10^3/uL (134-434); RBC 3.92 M/mm3 (3.60-5.2); RDW 18.4 % (11.6-15.6); WHITE BLOOD COUNT 12.7 K/mm3 (4.0-10.0)
[2023-10-24 08:06] LABS: POTASSIUM 3.7 mmol/L (3.5-5.1)
[2023-10-24 08:14] LABS: BLOOD UREA NITROGEN 18.9 mg/dL (7-18); CALCIUM 8.4 mg/dL (8.5-10.1)
[2023-10-24] MEDS: METOPROLOL TARTRATE 25 MG TABLET (FP) PO SCH ×3 (08:14→23:36)
[2023-10-24] MEDS: CALCITRIOL 0.25 MCG CAPSULE (FP) PO SCH ×2 (08:14→09:37)
[2023-10-24] MEDS: FUROSEMIDE 40 MG/4 ML INJECTABLE VIAL IVPUSH SCH ×2 (08:14→09:37)
[2023-10-24] MEDS: LEVOTHYROXINE NA 100 MCG TABLET (FP) PO SCH (08:14)
[2023-10-24] MEDS: APIXABAN 5 MG TABLET PO SCH ×3 (08:14→23:36)
[2023-10-24 08:15] LABS: MAGNESIUM 1.7 mg/dL (1.8-2.4)
[2023-10-24 08:17] LABS: CREATININE 1.2 mg/dL (0.55-1.3); PHOSPHOROUS 3.9 mg/dL (2.5-4.9)
[2023-10-24 08:19] LABS: BILIRUBIN,TOTAL 0.6 mg/dL (0.2-1)
[2023-10-24] MEDS ORDERED: QUEtiapine FUMARATE 25 MG TABLET ONE (23:18)
[2023-10-24] MEDS ORDERED: METOPROLOL TARTRATE 25 MG TABLET (FP) ONE (23:18)
[2023-10-24] MEDS ORDERED: APIXABAN 5 MG TABLET ONE (23:18)
[2023-10-24] MEDS ORDERED: DONEPEZIL HCL 5 MG TABLET (FP) ONE (23:18)
[2023-10-24] MEDS: DONEPEZIL HCL 10 MG TABLET (FP) PO SCH (23:36)
[2023-10-24] MEDS: QUEtiapine FUMARATE 25 MG TABLET PO SCH (23:37)
[2023-10-25] MEDS ORDERED: ACETAMINOPHEN 325 MG TABLET (FP) PO ONE (05:55)
[2023-10-25] MEDS: LEVOTHYROXINE NA 100 MCG TABLET (FP) PO SCH (06:43)
[2023-10-25] MEDS ORDERED: MAGNESIUM SULF 50% (8.12 MEQ/2 ML-1 GM VIAL) IVPB ONE (09:30)
[2023-10-25] MEDS: FUROSEMIDE 40 MG/4 ML INJECTABLE VIAL IVPUSH SCH ×2 (09:56→11:40)
[2023-10-25] MEDS: CALCITRIOL 0.25 MCG CAPSULE (FP) PO SCH ×2 (09:56→10:00)
[2023-10-25] MEDS: APIXABAN 5 MG TABLET PO SCH ×3 (09:56→21:41)
[2023-10-25] MEDS: METOPROLOL TARTRATE 25 MG TABLET (FP) PO SCH ×3 (09:56→21:41)
[2023-10-25] MEDS ORDERED: ACETAMINOPHEN 1000 MG/100 ML BAG IVPB ONE (12:45)
[2023-10-25] MEDS: guaiFENesin 200 MG/10 ML 10 ML UNIT-DOSE CUPS PO PRN ×3 (13:20→21:42)
[2023-10-25] MEDS ORDERED: LACTATED RINGERS SOLUTION 1,000 ML/1,000 ML INFUS.BAG IV STA (13:45)
[2023-10-25] MEDS: LACTATED RINGERS SOLUTION 1,000 ML/1,000 ML INFUS.BAG IV SCH (14:43)
[2023-10-25] MEDS: CEFTRIAXONE 1 GM in DEXTROSE 5%-WATER - 50 ML IVPB SCH (20:17)
[2023-10-25] MEDS: DONEPEZIL HCL 10 MG TABLET (FP) PO SCH (21:41)
[2023-10-25] MEDS: QUEtiapine FUMARATE 25 MG TABLET PO SCH (21:41)
[2023-10-25] MEDS: DOXYCYCLINE INJECTION 100 MG in DEXTROSE 5%-WATER 100 ML IVPB SCH (21:42)
[2023-10-26] MEDS: guaiFENesin 200 MG/10 ML 10 ML UNIT-DOSE CUPS PO PRN ×2 (05:33→11:22)
[2023-10-26] MEDS: LEVOTHYROXINE NA 100 MCG TABLET (FP) PO SCH (06:05)
[2023-10-26 08:47] LABS: HEMATOCRIT 28.6 % (32.4-45.2); HEMOGLOBIN 8.9 GM/dL (10.7-15.3); MCH 23.5 pg (25.7-33.7); MEAN CELL VOLUME 75.9 fl (80-96); MEAN PLT VOLUME 10.1 fl (7.5-11.1); PLATELET COUNT 221 10^3/uL (134-434); RBC 3.77 M/mm3 (3.60-5.2); RDW 18.4 % (11.6-15.6); WHITE BLOOD COUNT 11.7 K/mm3 (4.0-10.0)
[2023-10-26 09:28] LABS: POTASSIUM 3.3 mmol/L (3.5-5.1)
[2023-10-26 09:38] LABS: BLOOD UREA NITROGEN 25.9 mg/dL (7-18)
[2023-10-26 09:40] LABS: BILIRUBIN,TOTAL 0.6 mg/dL (0.2-1); CREATININE 1.2 mg/dL (0.55-1.3); PHOSPHOROUS 3.6 mg/dL (2.5-4.9)
[2023-10-26 09:41] LABS: TOT PROT 5.2 g/dl (6.4-8.2)
[2023-10-26 09:42] LABS: CALCIUM 8.5 mg/dL (8.5-10.1)
[2023-10-26 09:43] LABS: ALBUMIN 2.4 g/dl (3.4-5.0); MAGNESIUM 1.7 mg/dL (1.8-2.4)
[2023-10-26] MEDS: DOXYCYCLINE INJECTION 100 MG in DEXTROSE 5%-WATER 100 ML IVPB SCH ×2 (09:54→21:00)
[2023-10-26] MEDS: CALCITRIOL 0.25 MCG CAPSULE (FP) PO SCH (09:54)
[2023-10-26] MEDS: METOPROLOL TARTRATE 25 MG TABLET (FP) PO SCH ×2 (09:54→21:00)
[2023-10-26] MEDS: APIXABAN 5 MG TABLET PO SCH ×2 (09:54→21:00)
[2023-10-26] MEDS ORDERED: FUROSEMIDE 40 MG/4 ML INJECTABLE VIAL IVPUSH ONE (11:21)
[2023-10-26] MEDS: LEVALBUTEROL HCL 0.31 MG/3 ML VIAL.NEB IH SCH ×3 (12:16→21:32)
[2023-10-26] MEDS: guaiFENesin/D-METHORPHAN TAB.ER.12H PO SCH ×2 (12:50→21:00)
[2023-10-26] MEDS ORDERED: LEVALBUTEROL HCL 0.31 MG/3 ML VIAL.NEB IH SCH (14:00)
[2023-10-26] MEDS: CEFTRIAXONE 1 GM in DEXTROSE 5%-WATER - 50 ML IVPB SCH (18:17)
[2023-10-26] MEDS: BENZOCAINE/MENTHOL (CHLORASEPTIC ) LOZENGE MM PRN (18:17)
[2023-10-26] MEDS: BENZOCAINE/MENTH/CETYLPYRD CL 1 EACH LOZENGE MM PRN (18:18)
[2023-10-26] MEDS: LACTATED RINGERS SOLUTION 1,000 ML/1,000 ML INFUS.BAG IV SCH (18:19)
[2023-10-26] MEDS: ACETAMINOPHEN 325 MG TABLET (FP) PO PRN (21:00)
[2023-10-26] MEDS: DONEPEZIL HCL 10 MG TABLET (FP) PO SCH (21:00)
[2023-10-26] MEDS: QUEtiapine FUMARATE 25 MG TABLET PO SCH (21:00)
[2023-10-27] MEDS: LEVOTHYROXINE NA 100 MCG TABLET (FP) PO SCH (06:00)
[2023-10-27] MEDS: LEVALBUTEROL HCL 0.31 MG/3 ML VIAL.NEB IH SCH ×3 (07:45→21:28)
[2023-10-27] MEDS: ACETAMINOPHEN 325 MG TABLET (FP) PO PRN (09:41)
[2023-10-27] MEDS: FUROSEMIDE 40 MG TABLET (FP) PO SCH (09:41)
[2023-10-27] MEDS: CALCITRIOL 0.25 MCG CAPSULE (FP) PO SCH (09:42)
[2023-10-27] MEDS: APIXABAN 5 MG TABLET PO SCH ×2 (09:42→21:42)
[2023-10-27] MEDS: METOPROLOL TARTRATE 25 MG TABLET (FP) PO SCH ×2 (09:42→21:42)
[2023-10-27] MEDS: BENZOCAINE/MENTHOL (CHLORASEPTIC ) LOZENGE MM PRN (09:42)
[2023-10-27] MEDS: DOXYCYCLINE INJECTION 100 MG in DEXTROSE 5%-WATER 100 ML IVPB SCH ×2 (09:42→21:42)
[2023-10-27] MEDS: guaiFENesin/CODEINE 5 ML UNIT-DOSE CUPS PO PRN (09:42)
[2023-10-27] MEDS: guaiFENesin/D-METHORPHAN TAB.ER.12H PO SCH ×2 (10:14→21:41)
[2023-10-27] MEDS: BENZOCAINE/MENTH/CETYLPYRD CL 1 EACH LOZENGE MM PRN (14:44)
[2023-10-27] MEDS: CEFTRIAXONE 1 GM in DEXTROSE 5%-WATER - 50 ML IVPB SCH (18:19)
[2023-10-27] MEDS: QUEtiapine FUMARATE 25 MG TABLET PO SCH (21:42)
[2023-10-27] MEDS: DONEPEZIL HCL 10 MG TABLET (FP) PO SCH (21:42)
[2023-10-28] MEDS: LEVOTHYROXINE NA 100 MCG TABLET (FP) PO SCH (06:16)
[2023-10-28] MEDS: LEVALBUTEROL HCL 0.31 MG/3 ML VIAL.NEB IH SCH ×3 (07:20→21:30)
[2023-10-28 08:45] LABS: HEMATOCRIT 28.9 % (32.4-45.2); HEMOGLOBIN 9.1 GM/dL (10.7-15.3); MCH 23.9 pg (25.7-33.7); MCHC 31.6 g/dl (32.0-36.0); MEAN CELL VOLUME 75.7 fl (80-96); MEAN PLT VOLUME 10.7 fl (7.5-11.1); PLATELET COUNT 268 10^3/uL (134-434); RBC 3.82 M/mm3 (3.60-5.2); RDW 18.2 % (11.6-15.6); WHITE BLOOD COUNT 7.4 K/mm3 (4.0-10.0)
[2023-10-28 09:03] LABS: POTASSIUM 3.8 mmol/L (3.5-5.1)
[2023-10-28 09:06] LABS: CALCIUM 8.4 mg/dL (8.5-10.1)
[2023-10-28 09:07] LABS: BLOOD UREA NITROGEN 23.9 mg/dL (7-18); MAGNESIUM 1.6 mg/dL (1.8-2.4)
[2023-10-28 09:10] LABS: CREATININE 1.1 mg/dL (0.55-1.3); PHOSPHOROUS 3.7 mg/dL (2.5-4.9)
[2023-10-28] MEDS: CALCITRIOL 0.25 MCG CAPSULE (FP) PO SCH (10:07)
[2023-10-28] MEDS: FUROSEMIDE 40 MG TABLET (FP) PO SCH (10:07)
[2023-10-28] MEDS: METOPROLOL TARTRATE 25 MG TABLET (FP) PO SCH ×2 (10:07→22:35)
[2023-10-28] MEDS: APIXABAN 5 MG TABLET PO SCH ×2 (10:07→22:35)
[2023-10-28] MEDS: guaiFENesin/D-METHORPHAN TAB.ER.12H PO SCH ×2 (10:10→22:36)
[2023-10-28] MEDS: DOXYCYCLINE INJECTION 100 MG in DEXTROSE 5%-WATER 100 ML IVPB SCH ×2 (10:11→22:35)
[2023-10-28] MEDS ORDERED: MAGNESIUM SULF 50% (8.12 MEQ/2 ML-1 GM VIAL) IVPB ONE ×2 (13:33→17:15)
[2023-10-28] MEDS: CEFTRIAXONE 1 GM in DEXTROSE 5%-WATER - 50 ML IVPB SCH (18:14)
[2023-10-28] MEDS: DONEPEZIL HCL 10 MG TABLET (FP) PO SCH (22:35)
[2023-10-28] MEDS: QUEtiapine FUMARATE 25 MG TABLET PO SCH (22:35)
[2023-10-29] MEDS: LEVOTHYROXINE NA 100 MCG TABLET (FP) PO SCH (06:48)
[2023-10-29] MEDS: LEVALBUTEROL HCL 0.31 MG/3 ML VIAL.NEB IH SCH ×3 (08:25→20:40)
[2023-10-29] MEDS: METOPROLOL TARTRATE 25 MG TABLET (FP) PO SCH ×2 (09:17→22:45)
[2023-10-29] MEDS: APIXABAN 5 MG TABLET PO SCH ×2 (09:17→22:44)
[2023-10-29] MEDS: DOXYCYCLINE INJECTION 100 MG in DEXTROSE 5%-WATER 100 ML IVPB SCH ×2 (09:17→22:45)
[2023-10-29] MEDS: CALCITRIOL 0.25 MCG CAPSULE (FP) PO SCH (09:17)
[2023-10-29] MEDS: FUROSEMIDE 40 MG TABLET (FP) PO SCH (09:17)
[2023-10-29] MEDS: guaiFENesin/D-METHORPHAN TAB.ER.12H PO SCH ×2 (09:19→22:47)
[2023-10-29 09:29] LABS: HEMATOCRIT 29.4 % (32.4-45.2); HEMOGLOBIN 9.3 GM/dL (10.7-15.3); MCHC 31.6 g/dl (32.0-36.0); MEAN CELL VOLUME 75.8 fl (80-96); MEAN PLT VOLUME 10.4 fl (7.5-11.1); PLATELET COUNT 273 10^3/uL (134-434); RBC 3.88 M/mm3 (3.60-5.2); RDW 18.1 % (11.6-15.6); WHITE BLOOD COUNT 6.8 K/mm3 (4.0-10.0)
[2023-10-29 09:45] LABS: POTASSIUM 3.8 mmol/L (3.5-5.1)
[2023-10-29 10:00] LABS: ALBUMIN 2.3 g/dl (3.4-5.0); BLOOD UREA NITROGEN 25.4 mg/dL (7-18)
[2023-10-29 10:03] LABS: CREATININE 1.1 mg/dL (0.55-1.3); PHOSPHOROUS 4.2 mg/dL (2.5-4.9)
[2023-10-29 10:05] LABS: BILIRUBIN,TOTAL 0.4 mg/dL (0.2-1); TOT PROT 5.5 g/dl (6.4-8.2)
[2023-10-29] MEDS: guaiFENesin/CODEINE 5 ML UNIT-DOSE CUPS PO PRN ×2 (11:13→17:04)
[2023-10-29] MEDS ORDERED: BENZOCAINE/MENTHOL (CHLORASEPTIC ) LOZENGE MM PRN (13:26)
[2023-10-29] MEDS ORDERED: BENZOCAINE/MENTH/CETYLPYRD CL 1 EACH LOZENGE MM PRN (13:26)
[2023-10-29] MEDS: ACETAMINOPHEN 325 MG TABLET (FP) PO PRN (17:07)
[2023-10-29] MEDS: CEFTRIAXONE 1 GM in DEXTROSE 5%-WATER - 50 ML IVPB SCH (19:54)
[2023-10-29] MEDS: QUEtiapine FUMARATE 25 MG TABLET PO SCH (22:44)
[2023-10-29] MEDS: DONEPEZIL HCL 10 MG TABLET (FP) PO SCH (22:45)
[2023-10-29] MEDS: ZINC OXIDE 20% TOPICAL OINTMENT 30 GM TUBE TP SCH (22:48)
[2023-10-30] MEDS: LEVOTHYROXINE NA 100 MCG TABLET (FP) PO SCH (06:42)
[2023-10-30] MEDS: LEVALBUTEROL HCL 0.31 MG/3 ML VIAL.NEB IH SCH ×3 (07:37→20:17)
[2023-10-30] MEDS: DOXYCYCLINE INJECTION 100 MG in DEXTROSE 5%-WATER 100 ML IVPB SCH (09:01)
[2023-10-30 09:10] LABS: HEMATOCRIT 29.1 % (32.4-45.2); HEMOGLOBIN 9.1 GM/dL (10.7-15.3); MCH 23.7 pg (25.7-33.7); MCHC 31.4 g/dl (32.0-36.0); MEAN CELL VOLUME 75.7 fl (80-96); MEAN PLT VOLUME 10.2 fl (7.5-11.1); PLATELET COUNT 272 10^3/uL (134-434); RBC 3.85 M/mm3 (3.60-5.2); RDW 18.4 % (11.6-15.6)
[2023-10-30 09:25] LABS: POTASSIUM 3.9 mmol/L (3.5-5.1)
[2023-10-30 09:33] LABS: CALCIUM 8.5 mg/dL (8.5-10.1)
[2023-10-30 09:34] LABS: MAGNESIUM 1.8 mg/dL (1.8-2.4)
[2023-10-30 09:37] LABS: CREATININE 1.2 mg/dL (0.55-1.3); PHOSPHOROUS 4.5 mg/dL (2.5-4.9)
[2023-10-30] MEDS: FUROSEMIDE 40 MG TABLET (FP) PO SCH (11:45)
[2023-10-30] MEDS: CALCITRIOL 0.25 MCG CAPSULE (FP) PO SCH (11:45)
[2023-10-30] MEDS: guaiFENesin/D-METHORPHAN TAB.ER.12H PO SCH ×2 (11:45→21:40)
[2023-10-30] MEDS: APIXABAN 5 MG TABLET PO SCH ×2 (11:45→21:37)
[2023-10-30] MEDS: ZINC OXIDE 20% TOPICAL OINTMENT 30 GM TUBE TP SCH ×2 (11:45→21:38)
[2023-10-30] MEDS: METOPROLOL TARTRATE 25 MG TABLET (FP) PO SCH ×2 (11:45→21:37)
[2023-10-30] MEDS: guaiFENesin/CODEINE 5 ML UNIT-DOSE CUPS PO PRN ×2 (12:36→21:37)
[2023-10-30] MEDS: DOXYCYCLINE HYCLATE 100 MG CAPSULE PO SCH (17:34)
[2023-10-30] MEDS: CEFTRIAXONE 1 GM in DEXTROSE 5%-WATER - 50 ML IVPB SCH (18:41)
[2023-10-30] MEDS: DONEPEZIL HCL 10 MG TABLET (FP) PO SCH (21:37)
[2023-10-30] MEDS: QUEtiapine FUMARATE 25 MG TABLET PO SCH (21:37)
[2023-10-31] MEDS: LEVOTHYROXINE NA 100 MCG TABLET (FP) PO SCH (06:21)
[2023-10-31] MEDS: guaiFENesin/CODEINE 5 ML UNIT-DOSE CUPS PO PRN (06:21)
[2023-10-31] MEDS: LEVALBUTEROL HCL 0.31 MG/3 ML VIAL.NEB IH SCH ×3 (07:15→19:50)
[2023-10-31 09:16] LABS: BASO % 0.5 % (0-2.0); EOS % 2.9 % (0-4.5); HEMATOCRIT 28.9 % (32.4-45.2); HEMOGLOBIN 9.3 GM/dL (10.7-15.3); LYMPH % 13.5 % (8-40); MCH 24.6 pg (25.7-33.7); MCHC 32.3 g/dl (32.0-36.0); MEAN CELL VOLUME 76.2 fl (80-96); MEAN PLT VOLUME 10.4 fl (7.5-11.1); MONO % 13.6 % (3.8-10.2); NEUT % 69.5 % (42.8-82.8); PLATELET COUNT 327 10^3/uL (134-434); RBC 3.79 M/mm3 (3.60-5.2); RDW 18.5 % (11.6-15.6); WHITE BLOOD COUNT 9.6 K/mm3 (4.0-10.0)
[2023-10-31 09:36] LABS: POTASSIUM 4.2 mmol/L (3.5-5.1)
[2023-10-31 09:37] LABS: CALCIUM 8.7 mg/dL (8.5-10.1)
[2023-10-31 09:38] LABS: BLOOD UREA NITROGEN 28.5 mg/dL (7-18); MAGNESIUM 1.6 mg/dL (1.8-2.4)
[2023-10-31 09:41] LABS: CREATININE 1.1 mg/dL (0.55-1.3)
[2023-10-31] MEDS: APIXABAN 5 MG TABLET PO SCH ×2 (13:20→21:36)
[2023-10-31] MEDS: CALCITRIOL 0.25 MCG CAPSULE (FP) PO SCH (13:20)
[2023-10-31] MEDS: DOXYCYCLINE HYCLATE 100 MG CAPSULE PO SCH ×2 (13:21→19:15)
[2023-10-31] MEDS: ZINC OXIDE 20% TOPICAL OINTMENT 30 GM TUBE TP SCH ×2 (13:21→21:37)
[2023-10-31] MEDS: FUROSEMIDE 40 MG TABLET (FP) PO SCH (13:21)
[2023-10-31] MEDS: guaiFENesin/D-METHORPHAN TAB.ER.12H PO SCH ×2 (13:21→22:17)
[2023-10-31] MEDS: METOPROLOL TARTRATE 25 MG TABLET (FP) PO SCH ×2 (13:21→21:36)
[2023-10-31] MEDS ORDERED: cefTRIAXone SODIUM 1 GM VIAL ONE ×2 (20:48)
[2023-10-31] MEDS: CEFTRIAXONE 1 GM in DEXTROSE 5%-WATER - 50 ML IVPB SCH (21:35)
[2023-10-31] MEDS: QUEtiapine FUMARATE 25 MG TABLET PO SCH (21:36)
[2023-10-31] MEDS: DONEPEZIL HCL 10 MG TABLET (FP) PO SCH (21:36)
[2023-11-01] MEDS: ACETAMINOPHEN 325 MG TABLET (FP) PO PRN (03:15)
[2023-11-01] MEDS: LEVOTHYROXINE NA 100 MCG TABLET (FP) PO SCH (07:19)
[2023-11-01] MEDS: LEVALBUTEROL HCL 0.31 MG/3 ML VIAL.NEB IH SCH ×3 (07:53→20:09)
[2023-11-01 10:00] LABS: BASO % 0.5 % (0-2.0); EOS % 1.8 % (0-4.5); HEMATOCRIT 29.9 % (32.4-45.2); HEMOGLOBIN 9.1 GM/dL (10.7-15.3); LYMPH % 17.9 % (8-40); MCH 23.4 pg (25.7-33.7); MCHC 30.5 g/dl (32.0-36.0); MEAN CELL VOLUME 76.7 fl (80-96); MEAN PLT VOLUME 10.5 fl (7.5-11.1); MONO % 17.6 % (3.8-10.2); NEUT % 62.2 % (42.8-82.8); PLATELET COUNT 367 10^3/uL (134-434); RDW 18.1 % (11.6-15.6)
[2023-11-01] MEDS: DOXYCYCLINE HYCLATE 100 MG CAPSULE PO SCH ×2 (10:03→17:06)
[2023-11-01] MEDS: APIXABAN 5 MG TABLET PO SCH ×2 (10:03→22:15)
[2023-11-01] MEDS: FUROSEMIDE 40 MG TABLET (FP) PO SCH (10:03)
[2023-11-01] MEDS: CALCITRIOL 0.25 MCG CAPSULE (FP) PO SCH (10:03)
[2023-11-01] MEDS: guaiFENesin/D-METHORPHAN TAB.ER.12H PO SCH ×2 (10:04→22:15)
[2023-11-01] MEDS: METOPROLOL TARTRATE 25 MG TABLET (FP) PO SCH ×2 (10:06→22:15)
[2023-11-01 10:19] LABS: POTASSIUM 4.5 mmol/L (3.5-5.1)
[2023-11-01 10:30] LABS: BLOOD UREA NITROGEN 30.7 mg/dL (7-18); MAGNESIUM 2.1 mg/dL (1.8-2.4)
[2023-11-01 10:33] LABS: CREATININE 1.3 mg/dL (0.55-1.3)
[2023-11-01] MEDS: ZINC OXIDE 20% TOPICAL OINTMENT 30 GM TUBE TP SCH ×2 (11:41→22:16)
[2023-11-01] MEDS: CEFTRIAXONE 1 GM in DEXTROSE 5%-WATER - 50 ML IVPB SCH (18:57)
[2023-11-01] MEDS: QUEtiapine FUMARATE 25 MG TABLET PO SCH (22:15)
[2023-11-01] MEDS: DONEPEZIL HCL 10 MG TABLET (FP) PO SCH (22:15)
[2023-11-02] MEDS: LEVOTHYROXINE NA 100 MCG TABLET (FP) PO SCH (06:34)
[2023-11-02] MEDS: LEVALBUTEROL HCL 0.31 MG/3 ML VIAL.NEB IH SCH ×3 (08:00→20:32)
[2023-11-02] MEDS: METOPROLOL TARTRATE 25 MG TABLET (FP) PO SCH ×2 (09:44→22:15)
[2023-11-02] MEDS: FUROSEMIDE 40 MG TABLET (FP) PO SCH (09:44)
[2023-11-02] MEDS: CALCITRIOL 0.25 MCG CAPSULE (FP) PO SCH (09:44)
[2023-11-02] MEDS: DOXYCYCLINE HYCLATE 100 MG CAPSULE PO SCH ×2 (09:45→17:37)
[2023-11-02] MEDS: APIXABAN 5 MG TABLET PO SCH ×2 (09:45→22:15)
[2023-11-02] MEDS: guaiFENesin/D-METHORPHAN TAB.ER.12H PO SCH ×2 (09:45→22:15)
[2023-11-02] MEDS ORDERED: guaiFENesin/D-METHORPHAN HB 10 ML UNIT-DOSE CUPS PO PRN (09:51)
[2023-11-02] MEDS ORDERED: CLOTRIMAZOLE/BETAMET DIPROP 15 GM TUBE TP SCH (11:15)
[2023-11-02 12:15] VITALS: BMI 35.3
[2023-11-02] MEDS ORDERED: BISACODYL 10 MG SUPP.RECT PR PRN (12:23)
[2023-11-02] MEDS: ZINC OXIDE 20% TOPICAL OINTMENT 30 GM TUBE TP SCH ×2 (13:02→22:15)
[2023-11-02] MEDS: SENNOSIDES/DOCUSATE COMBO (SENNA PLUS) TABLET (UD) PO SCH ×2 (14:04→22:15)
[2023-11-02] MEDS: ACETAMINOPHEN 325 MG TABLET (FP) PO PRN (14:04)
[2023-11-02] MEDS: CEFTRIAXONE 1 GM in DEXTROSE 5%-WATER - 50 ML IVPB SCH (18:41)
[2023-11-02] MEDS: DONEPEZIL HCL 10 MG TABLET (FP) PO SCH (22:15)
[2023-11-02] MEDS: QUEtiapine FUMARATE 25 MG TABLET PO SCH (22:15)
[2023-11-03] MEDS: LEVOTHYROXINE NA 100 MCG TABLET (FP) PO SCH (06:09)
[2023-11-03] MEDS: LEVALBUTEROL HCL 0.31 MG/3 ML VIAL.NEB IH SCH (07:45)
[2023-11-03 07:52] LABS: HEMATOCRIT 30.8 % (32.4-45.2); HEMOGLOBIN 9.6 GM/dL (10.7-15.3); MCH 23.5 pg (25.7-33.7); MEAN CELL VOLUME 75.6 fl (80-96); MEAN PLT VOLUME 10.4 fl (7.5-11.1); PLATELET COUNT 425 10^3/uL (134-434); RBC 4.07 M/mm3 (3.60-5.2); RDW 18.3 % (11.6-15.6); WHITE BLOOD COUNT 10.9 K/mm3 (4.0-10.0)
[2023-11-03 08:08] LABS: POTASSIUM 4.7 mmol/L (3.5-5.1)
[2023-11-03 08:10] LABS: CALCIUM 9.1 mg/dL (8.5-10.1)
[2023-11-03 08:14] LABS: CREATININE 1.1 mg/dL (0.55-1.3)
[2023-11-03] MEDS: APIXABAN 5 MG TABLET PO SCH ×2 (10:56→22:06)
[2023-11-03] MEDS: DOXYCYCLINE HYCLATE 100 MG CAPSULE PO SCH ×2 (10:56→17:42)
[2023-11-03] MEDS: METOPROLOL TARTRATE 25 MG TABLET (FP) PO SCH ×2 (10:56→22:05)
[2023-11-03] MEDS: CALCITRIOL 0.25 MCG CAPSULE (FP) PO SCH (10:56)
[2023-11-03] MEDS: POLYETHYLENE GLYCOL (HEALTHYLAX) 3350 17 GM PACKET PO SCH (10:56)
[2023-11-03] MEDS: FUROSEMIDE 40 MG TABLET (FP) PO SCH (10:56)
[2023-11-03] MEDS: guaiFENesin/D-METHORPHAN TAB.ER.12H PO SCH ×2 (10:57→22:06)
[2023-11-03] MEDS: ZINC OXIDE 20% TOPICAL OINTMENT 30 GM TUBE TP SCH ×2 (10:57→22:07)
[2023-11-03] MEDS: SENNOSIDES/DOCUSATE COMBO (SENNA PLUS) TABLET (UD) PO SCH ×2 (12:25→22:05)
[2023-11-03] MEDS ORDERED: QUEtiapine FUMARATE 25 MG TABLET PO ONE (14:15)
[2023-11-03] MEDS: CEFTRIAXONE 1 GM in DEXTROSE 5%-WATER - 50 ML IVPB SCH (19:57)
[2023-11-03] MEDS: DONEPEZIL HCL 10 MG TABLET (FP) PO SCH (22:05)
[2023-11-03] MEDS: QUEtiapine FUMARATE 25 MG TABLET PO SCH (22:06)
[2023-11-04] MEDS: LEVOTHYROXINE NA 100 MCG TABLET (FP) PO SCH (07:06)
[2023-11-04] MEDS: CALCITRIOL 0.25 MCG CAPSULE (FP) PO SCH (11:20)
[2023-11-04] MEDS: FUROSEMIDE 40 MG TABLET (FP) PO SCH (11:20)
[2023-11-04] MEDS: SENNOSIDES/DOCUSATE COMBO (SENNA PLUS) TABLET (UD) PO SCH ×2 (11:21→22:05)
[2023-11-04] MEDS: DOXYCYCLINE HYCLATE 100 MG CAPSULE PO SCH ×2 (11:21→18:03)
[2023-11-04] MEDS: METOPROLOL TARTRATE 25 MG TABLET (FP) PO SCH ×2 (11:22→22:05)
[2023-11-04] MEDS: POLYETHYLENE GLYCOL (HEALTHYLAX) 3350 17 GM PACKET PO SCH (11:22)
[2023-11-04] MEDS: APIXABAN 5 MG TABLET PO SCH ×2 (11:22→22:05)
[2023-11-04] MEDS: guaiFENesin/D-METHORPHAN TAB.ER.12H PO SCH ×2 (11:22→22:06)
[2023-11-04] MEDS: ZINC OXIDE 20% TOPICAL OINTMENT 30 GM TUBE TP SCH ×2 (11:23→22:07)
[2023-11-04] MEDS: QUEtiapine FUMARATE 25 MG TABLET PO SCH ×2 (14:25→22:06)
[2023-11-04] MEDS: CEFTRIAXONE 1 GM in DEXTROSE 5%-WATER - 50 ML IVPB SCH (20:11)
[2023-11-04] MEDS: DONEPEZIL HCL 10 MG TABLET (FP) PO SCH (22:06)
[2023-11-05] MEDS: LEVOTHYROXINE NA 100 MCG TABLET (FP) PO SCH (06:36)
[2023-11-05 09:31] LABS: BASO % 0.8 % (0-2.0); EOS % 2.5 % (0-4.5); HEMATOCRIT 32.5 % (32.4-45.2); LYMPH % 17.1 % (8-40); MCH 23.7 pg (25.7-33.7); MCHC 30.9 g/dl (32.0-36.0); MEAN CELL VOLUME 76.5 fl (80-96); MEAN PLT VOLUME 9.8 fl (7.5-11.1); MONO % 7.8 % (3.8-10.2); NEUT % 71.8 % (42.8-82.8); PLATELET COUNT 484 10^3/uL (134-434); RBC 4.24 M/mm3 (3.60-5.2); RDW 18.3 % (11.6-15.6); WHITE BLOOD COUNT 10.6 K/mm3 (4.0-10.0)
[2023-11-05 09:51] LABS: POTASSIUM 4.2 mmol/L (3.5-5.1)
[2023-11-05 09:55] LABS: CALCIUM 9.7 mg/dL (8.5-10.1)
[2023-11-05 09:56] LABS: ALBUMIN 2.4 g/dl (3.4-5.0); BLOOD UREA NITROGEN 30.8 mg/dL (7-18)
[2023-11-05 09:58] LABS: CREATININE 1.2 mg/dL (0.55-1.3)
[2023-11-05 10:00] LABS: BILIRUBIN,TOTAL 0.2 mg/dL (0.2-1)
[2023-11-05 10:01] LABS: TOT PROT 6.4 g/dl (6.4-8.2)
[2023-11-05] MEDS: FUROSEMIDE 40 MG TABLET (FP) PO SCH (10:28)
[2023-11-05] MEDS: DOXYCYCLINE HYCLATE 100 MG CAPSULE PO SCH (10:28)
[2023-11-05] MEDS: CALCITRIOL 0.25 MCG CAPSULE (FP) PO SCH (10:28)
[2023-11-05] MEDS: SENNOSIDES/DOCUSATE COMBO (SENNA PLUS) TABLET (UD) PO SCH (10:28)
[2023-11-05] MEDS: APIXABAN 5 MG TABLET PO SCH (10:29)
[2023-11-05] MEDS: POLYETHYLENE GLYCOL (HEALTHYLAX) 3350 17 GM PACKET PO SCH (10:29)
[2023-11-05] MEDS: METOPROLOL TARTRATE 25 MG TABLET (FP) PO SCH (10:29)
[2023-11-05] MEDS: guaiFENesin/D-METHORPHAN TAB.ER.12H PO SCH (10:30)
[2023-11-05] MEDS: QUEtiapine FUMARATE 25 MG TABLET PO SCH (10:30)
[2023-11-05] MEDS: ZINC OXIDE 20% TOPICAL OINTMENT 30 GM TUBE TP SCH (10:32)
[2023-11-05 14:41] VITALS: BP 118/57; PULSE 67; RESP 20; TEMP 98.2
== END 2023-11-05 14:50 | DRG 871 ==
LOC: JER 18:08 → JERBED 10-24 00:47 → J4S 10-25 01:26 → OBSVTOIN 10-25 11:00 → J7W 10-29 12:24
PROVIDERS: ADMIT Internal Medicine; ATTEND Nurse Practitioner Acute Care
DX: A41.9 Sepsis, unspecified organism (principal); I50.33 Acute on chronic diastolic (congestive) heart failure; J18.9 Pneumonia, unspecified organism; I48.91 Unspecified atrial fibrillation; Z79.01 Long term (current) use of anticoagulants; F03.90 Unspecified dementia, unspecified severity, without behavioral disturbance, psychotic disturbance, mood disturbance, and anxiety; E03.9 Hypothyroidism, unspecified; E78.5 Hyperlipidemia, unspecified; I25.10 Atherosclerotic heart disease of native coronary artery without angina pectoris; Z95.1 Presence of aortocoronary bypass graft; I11.0 Hypertensive heart disease with heart failure; Z95.2 Presence of prosthetic heart valve; K59.00 Constipation, unspecified; E11.9 Type 2 diabetes mellitus without complications
CPT/HCPCS: 0241U-QW; 36415; 71045-TC-FY; 80048; 80053; 81003; 82962; 83605; 83735; 83880; 84100; 84443; 84484; 84550; 85025; 85027; 85610; 85730; 87040; 87081; 87086; 87635; 87899; 93005; 93010; 93970-TC; 94010; 94761; 97116-GP; 97161-GP; 99285-25; G0378

== ENCOUNTER 2024-01-30 13:10 | Inpatient (IN) | payer OTHER, BC ==
[2024-01-30 16:32] LABS: BASO % 0.5 % (0-2.0); EOS % 0.3 % (0-4.5); HEMATOCRIT 29.7 % (32.4-45.2); MCH 23.3 pg (25.7-33.7); MCHC 30.4 g/dl (32.0-36.0); MEAN CELL VOLUME 76.8 fl (80-96); NEUT % 81.2 % (42.8-82.8); PLATELET COUNT 243 10^3/uL (134-434); RBC 3.87 M/mm3 (3.60-5.2); WHITE BLOOD COUNT 10.9 K/mm3 (4.0-10.0)
[2024-01-30 16:37] LABS: INR 1.84 (0.83-1.09); PROTHROMBIN TIME (PATIENT) 21.2 SEC (9.7-13.0)
[2024-01-30 16:40] LABS: ACTIVATED PTT 38.1 SECONDS (25.2-36.5)
[2024-01-30 16:42] LABS: POTASSIUM 4.8 mmol/L (3.5-5.1)
[2024-01-30 16:44] LABS: BLOOD UREA NITROGEN 23.1 mg/dL (7-18); CALCIUM 8.9 mg/dL (8.5-10.1); URINE APPEARANCE CLEAR; URINE BILIRUBIN NEGATIVE (NEGATIVE); URINE COLOR YELLOW; URINE GLUCOSE (UA) NEGATIVE (NEGATIVE); URINE KETONE TRACE (NEGATIVE); URINE LEUK ESTERASE NEGATIVE (NEGATIVE); URINE NITRITE NEGATIVE (NEGATIVE); URINE PROTEIN TRACE (NEGATIVE); URINE UROBILINOGEN 0.2 mg/dL (0.2-1.0)
[2024-01-30 16:45] LABS: ALBUMIN 2.8 g/dl (3.4-5.0)
[2024-01-30 16:47] LABS: CREATININE 1.1 mg/dL (0.55-1.3)
[2024-01-30 16:49] LABS: BILIRUBIN,TOTAL 0.5 mg/dL (0.2-1); TOT PROT 6.1 g/dl (6.4-8.2)
[2024-01-30] MEDS ORDERED: traMADol HCL 50 MG TABLET PO PRN ×2 (21:41→21:48)
[2024-01-30] MEDS ORDERED: ACETAMINOPHEN 325 MG TABLET (FP) PO PRN (21:49)
[2024-01-30] MEDS ORDERED: ACETAMINOPHEN INJECTION 100 ML IVPB ONE (22:11)
[2024-01-30] MEDS: ACETAMINOPHEN 1000 MG/100 ML BAG IVPB ONE (22:15)
[2024-01-31] MEDS ORDERED: ALBUTEROL SO4 HFA INHALER IH PRN (04:56)
[2024-01-31] MEDS: INSULIN ASPART SLIDING SCALE (NOVOLOG) 1 VIAL SQ SCH (06:14)
[2024-01-31] MEDS: LEVOTHYROXINE NA 100 MCG TABLET (FP) PO SCH (06:14)
[2024-01-31 09:52] LABS: HEMATOCRIT 28.4 % (32.4-45.2); HEMOGLOBIN 8.9 GM/dL (10.7-15.3); MCH 23.7 pg (25.7-33.7); MCHC 31.3 g/dl (32.0-36.0); MEAN CELL VOLUME 75.6 fl (80-96); MEAN PLT VOLUME 9.4 fl (7.5-11.1); PLATELET COUNT 275 10^3/uL (134-434); RBC 3.76 M/mm3 (3.60-5.2); RDW 19.5 % (11.6-15.6); WHITE BLOOD COUNT 8.4 K/mm3 (4.0-10.0)
[2024-01-31] MEDS ORDERED: amLODIPine BESYLATE 10 MG TABLET (FP) PO SCH (10:00)
[2024-01-31 10:09] LABS: POTASSIUM 4.2 mmol/L (3.5-5.1)
[2024-01-31 10:11] LABS: CALCIUM 8.8 mg/dL (8.5-10.1)
[2024-01-31 10:12] LABS: ALBUMIN 2.6 g/dl (3.4-5.0); MAGNESIUM 2.4 mg/dL (1.8-2.4)
[2024-01-31 10:16] LABS: TOT PROT 5.8 g/dl (6.4-8.2)
[2024-01-31 10:17] LABS: BILIRUBIN,TOTAL 0.5 mg/dL (0.2-1)
[2024-01-31] MEDS: COLCHICINE 0.6 MG TAB PO ONE (10:32)
[2024-01-31] MEDS: TORSEMIDE 20 MG TABLET (FP) PO SCH (10:32)
[2024-01-31] MEDS: ASPIRIN 81 MG CHEWABLE TABLETS PO SCH (10:32)
[2024-01-31] MEDS: DONEPEZIL HCL 10 MG TABLET (FP) PO SCH (10:33)
[2024-01-31] MEDS: METOPROLOL TARTRATE 25 MG TABLET (FP) PO SCH (10:33)
[2024-01-31] MEDS: amLODIPine BESYLATE 10 MG TABLET (FP) PO SCH (10:33)
[2024-01-31] MEDS: ALLOPURINOL 100 MG TABLET (FP) PO SCH (10:33)
[2024-01-31] MEDS: APIXABAN 5 MG TABLET PO SCH (10:33)
[2024-01-31] MEDS: COLCHICINE 0.6 MG TAB PO SCH (13:28)
[2024-01-31 15:42] VITALS: BMI 35.5
[2024-01-31] MEDS: QUEtiapine FUMARATE 25 MG TABLET PO SCH (21:09)
[2024-01-31] MEDS: MELATONIN 5 MG TABLETS PO ONE (23:50)
[2024-01-31] MEDS: hydrOXYzine HCL 50 MG/ML VIAL IM ONE (23:51)
[2024-02-01 08:26] LABS: BASO % 0.5 % (0-2.0); EOS % 5.2 % (0-4.5); HEMATOCRIT 26.9 % (32.4-45.2); HEMOGLOBIN 8.3 GM/dL (10.7-15.3); LYMPH % 22.6 % (8-40); MCH 23.2 pg (25.7-33.7); MCHC 30.7 g/dl (32.0-36.0); MEAN CELL VOLUME 75.5 fl (80-96); MEAN PLT VOLUME 9.7 fl (7.5-11.1); MONO % 10.6 % (3.8-10.2); NEUT % 61.1 % (42.8-82.8); PLATELET COUNT 249 10^3/uL (134-434); RBC 3.56 M/mm3 (3.60-5.2); RDW 19.5 % (11.6-15.6); WHITE BLOOD COUNT 6.4 K/mm3 (4.0-10.0)
[2024-02-01 08:33] LABS: INR 1.65 (0.83-1.09); PROTHROMBIN TIME (PATIENT) 19.1 SEC (9.7-13.0)
[2024-02-01 08:36] LABS: ACTIVATED PTT 34.2 SECONDS (25.2-36.5)
[2024-02-01 09:13] LABS: ALBUMIN 2.2 g/dl (3.4-5.0); BLOOD UREA NITROGEN 23.8 mg/dL (7-18); CALCIUM 8.2 mg/dL (8.5-10.1); MAGNESIUM 1.8 mg/dL (1.8-2.4)
[2024-02-01 09:15] LABS: PHOSPHOROUS 3.8 mg/dL (2.5-4.9)
[2024-02-01 09:16] LABS: CREATININE 1.1 mg/dL (0.55-1.3)
[2024-02-01 09:17] LABS: BILIRUBIN,TOTAL 0.3 mg/dL (0.2-1); TOT PROT 4.9 g/dl (6.4-8.2)
[2024-02-01] MEDS: metoPROLOL SUCCINATE 25 MG TAB.SR.24H (FP) PO SCH (10:51)
[2024-02-02 10:05] LABS: IRON SERUM 16 ug/dL (50-175); TOTAL IRON BINDING CAPACITY 256 ug/dL (250-450)
[2024-02-02] MEDS: IRON SUCROSE INJECTION 200 MG in SODIUM CHLORIDE 100 ML IVPB ONE (14:00)
[2024-02-03 17:50] VITALS: BP 113/56; PULSE 72; RESP 20; TEMP 97.3
== END 2024-02-03 17:56 | disposition home or self-care (01) | DRG 552 ==
LOC: JER 13:10 → OBSVTOIN 20:11 → JERBED 20:11 → J8W 01-31 00:51
PROVIDERS: ADMIT Internal Medicine; ATTEND Internal Medicine
DX: M48.061 Spinal stenosis, lumbar region without neurogenic claudication (principal); I50.32 Chronic diastolic (congestive) heart failure; I11.0 Hypertensive heart disease with heart failure; I25.10 Atherosclerotic heart disease of native coronary artery without angina pectoris; I48.91 Unspecified atrial fibrillation; Z79.01 Long term (current) use of anticoagulants; M10.9 Gout, unspecified; F03.90 Unspecified dementia, unspecified severity, without behavioral disturbance, psychotic disturbance, mood disturbance, and anxiety; E78.5 Hyperlipidemia, unspecified; Z95.2 Presence of prosthetic heart valve; R91.1 Solitary pulmonary nodule; D50.9 Iron deficiency anemia, unspecified; I34.2 Nonrheumatic mitral (valve) stenosis
CPT/HCPCS: 0241U-QW; 36415; 70450-TC; 71045-TC-FY; 71250-TC; 73130-TC-LT-FY; 73564-TC-LT-FY; 73564-TC-RT-FY; 80053; 81003; 82962; 83540; 83550; 83735; 83880; 84100; 84484; 85025; 85027; 85610; 85730; 87086; 93005; 93010; 97116-GP; 97161-GP; 99285-25; J0131; J1756

== ENCOUNTER 2024-07-12 22:58 | Emergency (ER) | payer OTHER, BC ==
[2024-07-12 23:13] VITALS: BMI 34.2
[2024-07-13] MEDS ORDERED: METHOCARBAMOL 500 MG TABLET ONE
[2024-07-13] MEDS ORDERED: LIDOCAINE 4% PATCH TP ONE (00:01)
[2024-07-13] MEDS ORDERED: ACETAMINOPHEN 500 MG TABLET (FP) ONE (00:09)
[2024-07-13] MEDS: METHOCARBAMOL 500 MG TABLET PO ONE (00:30)
[2024-07-13] MEDS: ACETAMINOPHEN 500 MG TABLET (FP) PO ONE (00:30)
[2024-07-13 00:41] LABS: BASO % 0.7 % (0-2.0); EOS % 3.2 % (0-4.5); HEMATOCRIT 34.9 % (32.4-45.2); HEMOGLOBIN 11.3 GM/dL (10.7-15.3); LYMPH % 17.6 % (8-40); MCH 25.9 pg (25.7-33.7); MCHC 32.4 g/dl (32.0-36.0); MEAN PLT VOLUME 9.3 fl (7.5-11.1); NEUT % 69.5 % (42.8-82.8); PLATELET COUNT 273 10^3/uL (134-434); RBC 4.37 M/mm3 (3.60-5.2); RDW 22.1 % (11.6-15.6); WHITE BLOOD COUNT 8.8 K/mm3 (4.0-10.0)
[2024-07-13 00:57] LABS: CALCIUM 8.8 mg/dL (8.5-10.1); POTASSIUM 4.3 mmol/L (3.5-5.1)
[2024-07-13 00:58] LABS: ALBUMIN 3.1 g/dl (3.4-5.0); BLOOD UREA NITROGEN 32.8 mg/dL (7-18)
[2024-07-13 01:02] LABS: CREATININE 1.1 mg/dL (0.55-1.3)
[2024-07-13 01:04] LABS: BILIRUBIN,TOTAL 0.4 mg/dL (0.2-1); TOT PROT 6.3 g/dl (6.4-8.2)
[2024-07-13] MEDS: LIDOCAINE 4% PATCH TP ONE (01:08)
[2024-07-13 01:54] LABS: HIV INTERPRETATION NEGATIVE (NEGATIVE)
[2024-07-13 04:58] LABS: PH,URINE 5.5 (5.0-8.0); URINE APPEARANCE CLEAR; URINE BILIRUBIN NEGATIVE (NEGATIVE); URINE COLOR YELLOW; URINE GLUCOSE (UA) NEGATIVE (NEGATIVE); URINE KETONE NEGATIVE (NEGATIVE); URINE LEUK ESTERASE NEGATIVE (NEGATIVE); URINE NITRITE NEGATIVE (NEGATIVE); URINE PROTEIN NEGATIVE (NEGATIVE); URINE UROBILINOGEN 0.2 mg/dL (0.2-1.0)
[2024-07-13 10:24] VITALS: PULSE 61; RESP 20; TEMP 98
[2024-07-13] MEDS ORDERED: LIDOCAINE PATCH REMOVAL MC ONE (12:00)
[2024-07-13 17:02] VITALS: BP 150/55
== END 2024-07-13 17:38 | disposition home or self-care (01) ==
LOC: JER 22:58
DX: T14.8XXA Other injury of unspecified body region, initial encounter (principal); M54.2 Cervicalgia; M54.50 Low back pain, unspecified; M79.18 Myalgia, other site; Z20.822 Contact with and (suspected) exposure to COVID-19
CPT/HCPCS: 0241U-QW; 36415; 80053; 81003; 85025; 86803; 87086; 87389; 93970-TC; 99284-25